=== PATIENT | male | born 1975 | race Caucasian/White ===

== ENCOUNTER 2018-03-19 20:35 | Emergency (ER) | payer BC, SELFPAY ==
[2018-03-19 20:37] VITALS: BP 143/98; PULSE 80; RESP 16; TEMP 36.5; O2SAT 97; BMI 35.2
--- NOTE | 2018-03-19 22:06 | ED.DCSUM_ITS ---
- ER Visit Summary Date of Service: 03/19/18 Chief Complaint: Left small finger pain History of Present Illness: The patient is a 42 M who sees Arash Garcia. He is right-hand dominant. He attempted to block a football and has an obvious dislocation of his left finger PIP joint. He reports his sharp pain is 4 out of 10 severity. Is worsened by movement relieved by rest. Denies any paresthesias distally. No other injuries. Physical Examination: Vitals: Stable. Afebrile. General: Well-nourished and well-developed. Head: Normocephalic atraumatic. Neck: Supple, no lymphadenopathy. No JVD. Nontender. Cardiovascular: Regular rate and rhythm. No murmurs. Respiratory: No respiratory distress. Clear to auscultation bilaterally. Abdominal: Soft, nontender, nondistended, normal bowel sounds. No guarding, rebound, or peritoneal signs. Back: Nontender. Extremities: Left small finger shows an obvious dislocation of the PIP joint. He is neurovascular intact distally. Skin: Normal color, no rash. Neurologic: Alert and oriented ?3. Cranial nerves II through XII are intact. Normal strength and sensation. Psych: Normal affect. Test Results: X-ray shows a dislocation without fracture. Emergency Department Course and Treatment: Patient refused digital block or pain medications. He had this reduced and tolerated it well. He is placed in aluminum foam splint. Treatment Plan: Patient be discharged instructions follow Dr. Sullivan in 1 week for another exam. Disposition: To home in improved and stable condition. Impression: 1. Left small finger PIP joint dislocation. 2. Reduction of left small finger PIP dislocation. This note was generated with [employer] dictation software. It may contain incorrect words, spelling, and punctuation that were not noted in review of the chart prior to signing ED Disposition - Plan for ED Patient: Disposition: Home or Assisted Living Chief Complaint: Upper Extremity Injury Instructions: ED Dislocation Finger Redu Referrals: Chidi Sullivan DO [STAFF PHYSICIAN] - 1 Week
[2018-03-19 22:23] VITALS: BP 143/98; RESP 15
== END 2018-03-19 22:24 | disposition home or self-care (01) ==
PROVIDERS: Emergency Provider Emergency Medicine; Family Provider Nurse Practitioner Family; PCP Nurse Practitioner Family
DX: S63.287A Dislocation of proximal interphalangeal joint of left little finger, initial encounter (principal); W21.01XA Struck by football, initial encounter; Y93.61 Activity, american tackle football; Y92.89 Other specified places as the place of occurrence of the external cause; Y99.8 Other external cause status
CPT/HCPCS: 26770; 73140; 99283

== ENCOUNTER → 2020-09-12 08:19 | Outpatient (CLI) | payer BC, SELFPAY ==
[2020-09-12 09:33] LABS: Hematocrit 44.4 % (40-54); Mean Corp Hgb Conc 31.5 g/dL (32-36); Mean Corpuscular Hgb 25.4 pg (27.0-32.0); Mean Corpuscular Volume 80.6 fL (80-94); Mean Platelet Vol. 9.9 fl (6.2-12.0); Platelet Count 230 K/mm3 (150-450); RBC Distribution Width CV 14.4 % (11.6-14.6); RBC Distribution Width SD 41.8 fl (35.1-43.9); Red Blood Count 5.51 M/mm3 (4.6-6.2); White Blood Count 5.3 K/mm3 (4.4-11.0)
[2020-09-12 09:47] LABS: Hemoglobin A1c 5.7 % (3.8-5.6)
[2020-09-12 09:59] LABS: ALB/GLOB Ratio 1.1 RATIO (0.9-2.4); AST(SGOT) 19 U/L (15-37); Alanine Aminotransfer ALT/SGPT 24 U/L (16-61); Albumin, Serum 3.8 g/dL (3.2-5.0); Alkaline Phosphatase 85 U/L (45-117); Anion Gap 6 (5-15); BUN 27 mg/dL (7-18); BUN/Creat Ratio 18.2 RATIO (10-20); Calcium,Total 8.6 mg/dL (8.5-10.1); Chloride 111 mmol/L (98-107); Cholesterol 166 mg/dL (200); Creatinine, Serum 1.48 mg/dL (0.70-1.30); EST Glomerular Filtration Rate 54 mL/min (>60); Est Glom Filt Rate - Afr Amer 65 mL/min (>60); Globulin 3.6 g/dL (2.2-4.2); Glucose 68 mg/dL (74-106); High Density Lipoprotein 31 mg/dL; Potassium 4.6 mmol/L (3.5-5.1); Protein, Total 7.4 g/dL (6.4-8.2); Sodium Level 141 mmol/L (136-145); Triglycerides 140 mg/dL; Uric Acid 9.3 mg/dL (3.5-7.2); Very Low Density Lipoprotein 28 mg/dL (5-40)
== END ==
PROVIDERS: PCP Nurse Practitioner Family; Referring Provider Nurse Practitioner Family; Visit Provider Nurse Practitioner Family
DX: E11.9 Type 2 diabetes mellitus without complications (principal); M10.9 Gout, unspecified
CPT/HCPCS: 36415; 80053; 80061; 83036; 84550; 85027

== ENCOUNTER → 2021-04-02 09:51 | Outpatient (CLI) | payer BC, SELFPAY ==
[2021-04-02 10:34] LABS: Hematocrit 41.8 % (40-54); Hemoglobin 13.4 g/dL (13.0-16.5); Mean Corp Hgb Conc 32.1 g/dL (32-36); Mean Corpuscular Hgb 25.7 pg (27.0-32.0); Mean Corpuscular Volume 80.2 fL (80-94); Mean Platelet Vol. 9.4 fl (6.2-12.0); Platelet Count 224 K/mm3 (150-450); RBC Distribution Width CV 14.4 % (11.6-14.6); RBC Distribution Width SD 41.1 fl (35.1-43.9); Red Blood Count 5.21 M/mm3 (4.6-6.2); White Blood Count 5.6 K/mm3 (4.4-11.0)
[2021-04-02 11:12] LABS: ALB/GLOB Ratio 0.8 RATIO (0.9-2.4); AST(SGOT) 14 U/L (15-37); Alanine Aminotransfer ALT/SGPT 22 U/L (16-61); Albumin, Serum 3.2 g/dL (3.2-5.0); Alkaline Phosphatase 76 U/L (45-117); Anion Gap 6 (5-15); BUN 24 mg/dL (7-18); BUN/Creat Ratio 18.9 RATIO (10-20); Calcium,Total 8.4 mg/dL (8.5-10.1); Chloride 113 mmol/L (98-107); Cholesterol 135 mg/dL (200); Creatinine, Serum 1.27 mg/dL (0.70-1.30); EST Glomerular Filtration Rate 64 mL/min (>60); Est Glom Filt Rate - Afr Amer 78 mL/min (>60); Globulin 3.9 g/dL (2.2-4.2); Glucose 95 mg/dL (74-106); High Density Lipoprotein 31 mg/dL; Potassium 4.4 mmol/L (3.5-5.1); Protein, Total 7.1 g/dL (6.4-8.2); Sodium Level 140 mmol/L (136-145); Triglycerides 155 mg/dL; Uric Acid 4.6 mg/dL (3.5-7.2); Very Low Density Lipoprotein 31 mg/dL (5-40)
[2021-04-02 11:24] LABS: Hemoglobin A1c 5.9 % (3.8-5.6)
== END ==
PROVIDERS: PCP Nurse Practitioner Family; Referring Provider Nurse Practitioner Family; Visit Provider Nurse Practitioner Family
DX: E78.6 Lipoprotein deficiency (principal); M10.9 Gout, unspecified; I12.9 Hypertensive chronic kidney disease with stage 1 through stage 4 chronic kidney disease, or unspecified chronic kidney disease; N18.30 Chronic kidney disease, stage 3 unspecified; E78.5 Hyperlipidemia, unspecified; E11.9 Type 2 diabetes mellitus without complications
CPT/HCPCS: 36415; 80053; 80061; 83036; 84550; 85027

== ENCOUNTER → 2022-11-17 | Outpatient (CLI) | payer MEDICAID, SELFPAY | END | disposition home or self-care (01) | LOC: SL 20:13 | PROVIDERS: PCP Nurse Practitioner Family; Visit Provider Nurse Practitioner Family | DX: G47.10 Hypersomnia, unspecified (principal) | CPT/HCPCS: 95810 ==

== ENCOUNTER → 2022-12-11 | Outpatient (CLI) | payer MEDICAID, SELFPAY | END | disposition home or self-care (01) | LOC: SL 21:00 | PROVIDERS: PCP Nurse Practitioner Family; Referring Provider Nurse Practitioner Family; Visit Provider Nurse Practitioner Family | DX: G47.33 Obstructive sleep apnea (adult) (pediatric) (principal) | CPT/HCPCS: 95811 ==

== ENCOUNTER → 2023-01-16 | Outpatient (CLI) | payer MEDICAID, SELFPAY ==
[2023-01-16 08:51] LABS: Hematocrit 42.3 % (40-54); Mean Corp Hgb Conc 30.7 g/dL (32-36); Mean Corpuscular Hgb 24.4 pg (27.0-32.0); Mean Corpuscular Volume 79.5 fL (80-94); Mean Platelet Vol. 9.3 fl (6.2-12.0); Platelet Count 236 K/mm3 (150-450); RBC Distribution Width CV 15.1 % (11.6-14.6); RBC Distribution Width SD 43.2 fl (35.1-43.9); Red Blood Count 5.32 M/mm3 (4.6-6.2); White Blood Count 6.9 K/mm3 (4.4-11.0)
[2023-01-16 09:28] LABS: Cholesterol 123 mg/dL (200); High Density Lipoprotein 31 mg/dL; Iron 34 ug/dL (65-175); T4 Free Direct 0.93 ng/dL (0.76-1.46); Thyroid Stim Hormone (TSH) 1.26 uIU/mL (0.358-3.74); Triglycerides 125 mg/dL; Very Low Density Lipoprotein 25 mg/dL (5-40)
[2023-01-16 09:44] LABS: Vitamin D,25 Hydroxy 30.9 ng/mL
== END | disposition home or self-care (01) ==
PROVIDERS: PCP Nurse Practitioner Family; Referring Provider Nurse Practitioner Family; Visit Provider Nurse Practitioner Family
DX: I12.9 Hypertensive chronic kidney disease with stage 1 through stage 4 chronic kidney disease, or unspecified chronic kidney disease (principal); E11.22 Type 2 diabetes mellitus with diabetic chronic kidney disease; N18.30 Chronic kidney disease, stage 3 unspecified; E78.5 Hyperlipidemia, unspecified; D64.9 Anemia, unspecified; R68.89 Other general symptoms and signs; F41.1 Generalized anxiety disorder
CPT/HCPCS: 36415; 80061; 82043; 82306; 83540; 84439; 84443; 85027

== ENCOUNTER → 2023-11-18 | Outpatient (CLI) | payer SELFPAY ==
--- NOTE | 2023-11-18 15:13 | US_ITS ---
STUDY: THYROID ULTRASOUND REASON FOR EXAM: Male, 48 years old. Hypercalcemia, possible hyperparathyroidism TECHNIQUE: Ultrasound evaluation of the thyroid was performed with real-time and static eagle-scale imaging. COMPARISON: None. FINDINGS: RIGHT LOBE: The right lobe of the thyroid gland measures 4.6 x 1.7 x 1.7 cm. There is a heterogeneous echotexture. Multiple separate solid hypoechoic nodules are noted largest measures 0.9 x 0.6 x 0.4 cm. TI-RADS points: 4. TI-RADS category: TR4. Nodules are moderately suspicious but no FNA or follow-up is necessary given the small size of the nodules. LEFT LOBE: The left lobe of the thyroid gland measures 4.5 x 1.7 x 1.3 cm. There is a heterogeneous echotexture. Multiple complex solid and cystic nodules are noted the largest measures 1.4 x 1.2 x 1.0 cm. Nodules are mixed cystic and solid, hypoechoic, [id number], smoothly marginated and contains no echogenic foci. TI-RADS points: 3. TI-RADS category: TR3. Nodules are mildly suspicious but no FNA or follow-up is necessary given the small size of the nodules. ISTHMUS: The isthmus measures 2.8 mm. There is a solid/cystic 0.8 cm nodule. This nodule is mixed cystic and solid, hypoechoic, [id number], smoothly marginated and contains no echogenic foci. TI-RADS points: 3. TI-RADS category: TR3. This nodule is mildly suspicious but no FNA or follow-up is necessary given the small size of this nodule. The regional lymph nodes are normal. No sonographic evidence of enlarged parathyroid gland US/Thyroid IMPRESSION: Normal-sized heterogeneous thyroid gland with bilateral nodules, both solid and complex. Categorization and follow-up as described above. Electronically Signed: Jair Suresh MD at 8:36 EDT ,
--- NOTE | 2023-11-18 15:13 | US_ITS ---
INDICATION: CK WORSENING EXAMINATION: Ultrasound US Kidney(s) complete (eg, kidneys and bladder) TECHNIQUE: Ng scale and color doppler images were obtained of the kidneys. COMPARISON: None. FINDINGS: RIGHT KIDNEY: 9.3 x 4.8 x 4.3 cm. There is no hydronephrosis. No shadowing calculus, focal lesion or perinephric collection is demonstrated. RIGHT renal cortex estimated at 1.2 cm. LEFT KIDNEY: 9.1 x 6.3 x 4.9 cm. There is no hydronephrosis. No shadowing calculus, focal lesion or perinephric collection is demonstrated. [Cortex estimated at 1.1 cm. URINARY BLADDER: Bladder has normal configuration, volume estimated at 365.2 mL. No filling defects. Wall has normal appearance. Bilateral ureteral jets are identified. US/Kidney and Bladder IMPRESSION: 1. Normal sonographic appearance of the kidneys. No solid or cystic masses, shadowing calcifications or evidence of obstructive uropathy. 2. Bladder estimated volume is 365.2 mL. No filling defects noted. Bilateral ureteral jets are present. Electronically Signed: Richy Almazan MD at 21:07 EDT ,
== END | disposition home or self-care (01) ==
LOC: US 15:09
PROVIDERS: PCP Nurse Practitioner Family; Referring Provider Nurse Practitioner Family; Visit Provider Nurse Practitioner Family
DX: N25.81 Secondary hyperparathyroidism of renal origin (principal); N18.30 Chronic kidney disease, stage 3 unspecified
CPT/HCPCS: 76536; 76770

== ENCOUNTER → 2024-05-13 | Outpatient (CLI) | payer MEDICAID, SELFPAY ==
--- NOTE | 2024-05-13 09:05 | RAD_ITS ---
STUDY: X-RAY - RIGHT ELBOW REASON FOR EXAM: Male, 49 years old. PAIN AND SWELLING / EVAL CALCIFICATION IN COMMON ESTENSOR/FLEX MASS TECHNIQUE: 3 views of the right elbow. COMPARISON: None. FINDINGS: Normal visualized humerus, radius and ulna. Normal radiocapitellar and ulnotrochlear articulations. The soft tissue structures are unremarkable. There is no abnormal soft tissue calcification noted. There is no demonstrated fracture. RAD/Elbow min 3 Views IMPRESSION: Normal x-ray examination of the right elbow. No abnormal soft tissue calcification noted. Electronically Signed: Grayson Jolly MD at 15:44 EDT ,
== END | disposition home or self-care (01) ==
LOC: RAD 08:56
PROVIDERS: PCP Nurse Practitioner Family; Referring Provider Nurse Practitioner Family; Visit Provider Nurse Practitioner Family
DX: M25.521 Pain in right elbow (principal)
CPT/HCPCS: 73080

== ENCOUNTER → 2025-05-01 | Outpatient (CLI) | payer MEDICAID, SELFPAY ==
--- OUTSIDE RECORDS SUMMARY | 2025-05-01 10:21 | XMS RPT_ITS | CCD ---
Author Organization [facility] Care Team Providers Care Competitive Intelligence Analyst Name Role Phone [employer] - YOLIS, RICHY Jain Primary Care Phys ician Yanradha LGAOS, Richy Jain Primary Care Provider Rosebudradha LAGOS, Richy Jain Primary Care Provider [employer]GER [employer] - DIRECTOR OF ANESTHESIA SERVICES, RICHY Jain Attending U navailable YAN MANAGER [employer] - DIRECTOR OF ANESTHESIA SERVICES, RICHY Jain Primary Care U navailable Y[employer] MANAGER [employer] - DIRECTOR OF ANESTHESIA SERVICES, RICHY Jain Attending U navailable YAN MANAGER [employer] - DIRECTOR OF ANESTHESIA SERVICES, RICHY Jain Primary Care U navailable YAN MANAGER [employer] - DIRECTOR OF ANESTHESIA SERVICES, RICHY Jain Primary Care U navailable YAN MANAGER [employer] - DIRECTOR OF ANESTHESIA SERVICES, RICHY Jain Attending U navailable Yan YOLIS, Richy Jain Primary Care Provider YAN MANAGER [employer] - DIRECTOR OF ANESTHESIA SERVICES, RICHY Jain Attending U navailable YAN MANAGER [employer] - DIRECTOR OF ANESTHESIA SERVICES, RICHY Jain Primary Care U navailable YAN MANAGER [employer] - DIRECTOR OF ANESTHESIA SERVICES, RICHY Jain Attending U navailable YAN MANAGER [employer] - DIRECTOR OF ANESTHESIA SERVICES, RICHY Jain Primary Care U navailable YAN MANAGER [employer] - DIRECTOR OF ANESTHESIA SERVICES, RICHY Jain Attending U navailable YAN MANAGER [employer] - DIRECTOR OF ANESTHESIA SERVICES, RICHY Jain Primary Care U navailable YAN MANAGER [employer] - DIRECTOR OF ANESTHESIA SERVICES, RICHY Jain Attending U navailable YAN MANAGER [employer] - DIRECTOR OF ANESTHESIA SERVICES, RICHY Jain Primary Care U navailable Y[employer] MANAGER [employer] - DIRECTOR OF ANESTHESIA SERVICES, RICHY Jain Attending U navailable YAN MANAGER [employer] - DIRECTOR OF ANESTHESIA SERVICES, RICHY Jain Primary Care U navailable YAN, RICHY Jain Primary Care Unavailable ASHLYN LASSITER Attending Unavailable Yan BRANDS EDITOR, Richy Charles Referring Unav ailable Rosebud BRANDS EDITOR, Richy Charles Attending Unav ailable Rosebud BRANDS EDITOR, Richy Charles Primary Care Unav ailable Yan BRANDS EDITOR, Richy Charles Attending Unav ailable Yan BRANDS EDITOR, Richy Charles Primary Care Unav ailable Allergies Allergy Classification Reported Allergen(s) Allergy Type Date of Onset Reaction(s) Facility (15 sources) Ibuprofen; Translations: [ibuprofen] Drug Allergy 01-05-2022 Intolerance [facility] [place] Medications Current Medications Medication Drug Class(es) Dates Sig (Normalized) Sig (Original) [id number] 200 actuat albuterol 0.09 mg/actuat metered dose inhaler (10 sources) beta2-Adrenergic Agonist Start: 09-02-2017 albuterol (PROVENTIL) 5 mg/mL nebu Indications: Acute bronchitis, unspecified organism , Wheezing Inhale 0.5 mL as instructed one time only for 1 dose. 1 DOSE NOW - BACK OFFICE. PLACE 0.5 ML PER DROPPER AND 2.5 ML OF NORMAL SALINE INTO RESERVOIR. 1 mL 09/02/2017 Active Start: 09-02-2017 End: 01-05-2022 take 2 puff(s) by inhalation every four hours as needed albuterol HFA (PROVENTIL HFA, VENTOLIN HFA) 90 mcg/actuation inhaler Indications: Acute bronchitis, unspecified organism , Wheezing Inhale 2 Puffs as instructed every 4 hours as needed. 1 Inhaler 01/05/2022 Active Comment on above: Inhale 0.5 mL as ins tructed one time only for 1 dose. 1 DOSE NOW - BACK OFFICE. PLACE 0.5 ML PER DROPPER AND 2.5 ML OF NORMAL SALINE INTO RESERVOIR. Inhale 2 Puffs as in structed every 4 hours as needed. allopurinol 100 mg oral tablet (14 sources) Xanthine Oxidase Inhibitor Start: 05-05-2024 allopurinol 100 mg oral tablet Dose : 100 mg = 1 tab(s), Oral, qDay, # 90 tab(s), 1 Refill(s), Pharmacy: [facility], Gout, 172, cm, 05/05/24 8:52:00 EDT, Height, kg, 05/05/24 8:52:00 EDT, Dosing Weight Start Date: 05/05/24 Status: Ordered Start: 11-05-2023 allopurinol 10 0 mg oral tablet Dose : 100 mg = 1 tab(s), Oral, qDay, # 90 tab(s), 1 Refill(s), Pharmacy: [facility], Gout, 172, cm, 11/05/23 9:05:00 EDT, Height, kg, 11/05/23 9:05:00 EDT, Dosing Weight Start Date: 11/05/23 Status: Ordered Start: 04-30-2023 End: 10-27-2023 allopurinol 300 mg oral tabl et Dose : 300 mg = 1 tab(s), Oral, qDay, # 90 tab(s), 1 Refill(s), Pharmacy: [facility], Gout, 172, cm, 04/30/23 9:23:00 EDT, Height, kg, 04/30/23 9:23:00 EDT, Dosing Weight Start Date: 04/30/23 Stop Date: 10/27/23 Status: Ordered Start: 10-30-2022 End: 04-28-2023 allopurinol 300 mg oral tabl et Dose : 300 mg = 1 tab(s), Oral, qDay, # 90 tab(s), 1 Refill(s), Pharmacy: [facility], Gout, 172, cm, 10/30/22 10:44:00 EDT, Height, kg, 10/30/22 10:44:00 EDT, Dosing Weight Start Date: 10/30/22 Stop Date: 04/28/23 Status: Ordered Start: 01-08-2015 End: 10-21-2022 allopurinol 300 mg oral tabl et Dose : 300 mg = 1 tab(s), Oral, qDay, # 90 tab(s), 1 Refill(s), Pharmacy: [facility], Gout, 172, cm, 04/24/22 14:54:00 EDT, Height, kg, 04/24/22 14:54:00 EDT, Dosing Weight Start Date: 04/24/22 Stop Date: 10/21/22 Status: Ordered ALLOPURINOL ORAL Take by mouth. Active ALLOPURINOL ORAL Take by mouth. 0 Active Comment on above: Take 1 tablet by [facility] once daily. Take by mouth. amoxicillin 875 mg / clavulanate 125 mg oral tablet (3 sources) Penicillin-class Antibacterial Start: 5 take 875 mg by mouth every twelve hours Amoxicillin-Pot Clavulanate Active 875 MG PO Q12H December 21, 2014 12:00am ARIPiprazole 2 mg oral tablet (7 sources) Atypical Antipsychotic Start: Abilify 2 mg oral tablet Dose : 2 mg = 1 tab(s), Oral, qDay, # 90 tab(s), 1 Refill(s), Pharmacy: [facility], RENATO (generalized anxiety disorder), 172, cm, 05/05/24 8:52:00 EDT, Height, kg, 05/05/24 8:52:00 EDT, Dosing Weight Start Date: 05/05/24 Status: Ordered Start: 11-05-2023 Abilify 2 mg o ral tablet Dose : 2 mg = 1 tab(s), Oral, qDay, # 90 tab(s), 1 Refill(s), Pharmacy: [facility], RENATO (generalized anxiety disorder), 172, cm, 11/05/23 9:05:00 EDT, Height, kg, 11/05/23 9:05:00 EDT, Dosing Weight Start Date: 11/05/23 Status: Ordered Start: 03-27-2023 End: 07-29-2023 Abilify 2 mg oral tablet Dos e : 2 mg = 1 tab(s), Oral, qDay, # 90 tab(s), 1 Refill(s), Pharmacy: [facility], RENATO (generalized anxiety disorder), 172, cm, 04/30/23 9:23:00 EDT, Height, kg, 04/30/23 9:23:00 EDT, Dosing Weight Start Date: 04/30/23 Stop Date: 07/29/23 Status: Ordered Start: 09-01-2022 End: 10-31-2022 Abilify 5 mg oral tablet Dos e : 5 mg = 1 tab(s), Oral, qDay, # 30 tab(s), 1 Refill(s), Pharmacy: [facility], 172, cm, 09/01/22 10:13:00 EST, Height Start Date: 09/01/22 Stop Date: 10/31/22 Status: Ordered benzonatate 100 mg oral capsule (4 sources) Non-narcotic Antitussive Start: 07-09-2022 take 1 capsule by mouth three times daily as needed for cough benzonatate (TESSALON PERLE) 100 mg capsule Indications: Lower resp. tract infection Take 1 capsule by mouth three times a day as needed for cough for up to 12 doses. 12 capsule 11/13/2024 Active Start: 01-05-2022 End: 01-15-2022 take 2 capsules by mouth three times daily as needed for cough benzonatate (TESSALON PERLE) 100 mg capsule Indications: Acute bronchitis, unspecified organism Take 2 capsules by mouth three times daily as needed for cough for up to 10 days. 60 capsule 0 01/05/2022 01/15/2022 Active Comment on above: Take 2 capsules by m outh three times daily as needed for cough for up to 10 days. Take 1 capsule by mo uth three times daily as needed for cough. cholecalciferol 1.25 mg oral capsule (6 sources) Vitamin D Start: 11-03-2024 take 1 capsule by mouth every month cholecalciferol, Vitamin D3, (VITAMIN D3) 1,250 mcg (50,000 unit) cap capsule Take 50,000 Units by mouth once every month. 11/03/2024 Active Start: 05-05-2024 End: 11-01-2024 cholecalciferol 1250 mcg (50 ,000 intl units) oral capsule Dose : 50,000 International_Unit = 1 cap(s), Oral, every other week, # 7 cap(s), 1 Refill(s), Pharmacy: [facility], Vitamin D deficiency, 172, cm, 05/05/24 8:52:00 EDT, Height, kg, 05/05/24 8:52:00 EDT, Dosing Weight Start Date: 05/05/24 Stop Date: 11/01/24 Status: Ordered Start: 11-05-2023 End: 05-03-2024 cholecalciferol 1250 mcg (50 ,000 intl units) oral capsule Dose : 50,000 International_Unit = 1 cap(s), Oral, every other week, # 7 cap(s), 1 Refill(s), Pharmacy: [facility], Vitamin D deficiency, 172, cm, 11/05/23 9:05:00 EDT, Height, kg, 11/05/23 9:05:00 EDT, Dosing Weight Start Date: 11/05/23 Stop Date: 05/03/24 Status: Ordered Start: 04-30-2023 End: 10-27-2023 cholecalciferol 1250 mcg (50 ,000 intl units) oral capsule Dose : 50,000 International_Unit = 1 cap(s), Oral, qmonth, # 4 cap(s), 1 Refill(s), Pharmacy: [facility], Vitamin D deficiency, 172, cm, 04/30/23 9:23:00 EDT, Height, kg, 04/30/23 9:23:00 EDT, Dosing Weight Start Date: 04/30/23 Stop Date: 10/27/23 Status: Ordered Start: 02-02-2023 End: 10-27-2023 cholecalciferol 1250 mcg (50 ,000 intl units) oral capsule Dose : 50,000 International_Unit = 1 cap(s), Oral, qmonth, # 4 cap(s), 1 Refill(s), Pharmacy: [facility], Vitamin D deficiency, 172, cm, 04/30/23 9:23:00 EDT, Height, kg, 04/30/23 9:23:00 EDT, Dosing Weight Start Date: 04/30/23 Stop Date: 10/27/23 Status: Ordered citalopram 40 mg oral tablet (3 sources) Serotonin Reuptake Inhibitor Start: 04-04-2021 End: 06-30-2022 citalopram 40 mg oral tablet Dose : 40 mg = 1 tab(s), Oral, qDay, # 90 tab(s), 2 Refill(s), Pharmacy: [facility], RENATO, 172, cm, 10/03/21 9:02:00 EDT, Height, kg, 10/03/21 9:02:00 EDT, Dosing Weight Start Date: 10/03/21 Stop Date: 06/30/22 Status: Ordered doxycycline monohydrate 100 mg oral capsule (1 source) Tetracycline-cla ss Drug Start: 11-13-2024 End: 11-18-2024 take 1 capsule by mouth twice daily doxycycline monohydrate (MONODOX) 100 mg capsule Indications: Lower resp. tract infection Take 1 capsule by mouth two times a day for 5 days. 10 capsule 11/13/2024 11/18/2024 Active 0.4 ml enoxaparin sodium 100 mg/ml prefilled syringe (3 sources) Low Molecular Weight Heparin Start: 10-22-2014 Enoxaparin Active 40 MG SC DAILY@0600 14 October 22, 2014 12:00am escitalopram 20 mg oral tablet (7 sources) Serotonin Reuptake Inhibitor Start: 08-25-2024 take 1 tablet by mouth once daily LEXAPRO 20 mg tablet Take 20 mg by mouth once daily. 08/25/2024 Active Start: 05-05-2024 Lexapro 20 mg oral tablet Dose : 20 mg = 1 tab(s), Oral, qDay, # 90 tab(s), 0 Refill(s), Pharmacy: [facility], RENATO (generalized anxiety disorder), 172, cm, 05/05/24 8:52:00 EDT, Height, kg, 05/05/24 8:52:00 EDT, Dosing Weight Start Date: 05/05/24 Status: Ordered Start: 02-23-2024 Lexapro 20 mg oral tablet Dose : 20 mg = 1 tab(s), Oral, qDay, # 90 tab(s), 0 Refill(s), Pharmacy: [facility], RENATO (generalized anxiety disorder), 172, cm, 12/03/23 8:52:00 EDT, Height, kg, 12/03/23 8:52:00 EDT, Dosing Weight Start Date: 02/23/24 Status: Ordered Start: 08-28-2023 End: 11-26-2023 Lexapro 20 mg oral tablet Do se : 20 mg = 1 tab(s), Oral, qDay, # 90 tab(s), 0 Refill(s), Pharmacy: [facility], RENATO (generalized anxiety disorder), 172, cm, 04/30/23 9:23:00 EDT, Height, kg, 04/30/23 9:23:00 EDT, Dosing Weight Start Date: 08/28/23 Stop Date: 11/26/23 Status: Ordered Start: 03-27-2023 End: 07-29-2023 Lexapro 20 mg oral tablet Do se : 20 mg = 1 tab(s), Oral, qDay, # 30 tab(s), 2 Refill(s), Pharmacy: [facility], RENATO (generalized anxiety disorder), 172, cm, 04/30/23 9:23:00 EDT, Height, kg, 04/30/23 9:23:00 EDT, Dosing Weight Start Date: 04/30/23 Stop Date: 07/29/23 Status: Ordered Start: 09-01-2022 End: 10-31-2022 Lexapro 20 mg oral tablet Do se : 20 mg = 1 tab(s), Oral, qDay, D/c Wellbutrin, # 30 tab(s), 1 Refill(s), Pharmacy: [facility], RENATO (generalized anxiety disorder), 172, cm, 09/01/22 10:13:00 EST, Height, kg, 09/01/22 10:13:00 EST, Dosing Weight Start Date: 09/01/22 Stop Date: 10/31/22 Status: Ordered ferrous sulfate 325 mg delay ed release oral tablet (4 sources) Start: 11-05-2023 End: 05-03-2024 ferrous sulfate 325 mg (65 m g elemental iron) oral delayed release tablet Dose : 325 mg = 1 tab(s), Oral, qDay, # 90 tab(s), 1 Refill(s), Pharmacy: [facility], Iron deficiency anemia, 172, cm, 11/05/23 9:05:00 EDT, Height, kg, 11/05/23 9:05:00 EDT, Dosing Weight Start Date: 11/05/23 Stop Date: 05/03/24 Status: Ordered Start: 02-02-2023 End: 10-27-2023 ferrous sulfate 325 mg (65 m g elemental iron) oral delayed release tablet Dose : 325 mg = 1 tab(s), Oral, qDay, # 90 tab(s), 1 Refill(s), Pharmacy: [facility], Iron deficiency anemia, 172, cm, 04/30/23 9:23:00 EDT, Height, kg, 04/30/23 9:23:00 EDT, Dosing Weight Start Date: 04/30/23 Stop Date: 10/27/23 Status: Ordered glimepiride 2 mg oral tablet (12 sources) Sulfonylurea Start: 05-05-2024 End: 11-01-2024 glimepiride 2 mg oral tablet Dose : 2 mg = 1 tab(s), Oral, qDay, # 90 tab(s), 1 Refill(s), Pharmacy: [facility], DM type 2, goal HbA1c Start Date: 05/05/24 Stop Date: 11/01/24 Status: Ordered Start: 11-05-2023 End: 05-03-2024 glimepiride 2 mg oral tablet Dose : 2 mg = 1 tab(s), Oral, qDay, # 90 tab(s), 1 Refill(s), Pharmacy: [facility], DM type 2, goal HbA1c Start Date: 11/05/23 Stop Date: 05/03/24 Status: Ordered Start: 04-04-2021 End: 10-27-2023 glimepiride 2 mg oral tablet Dose : 2 mg = 1 tab(s), Oral, qDay, # 90 tab(s), 1 Refill(s), Pharmacy: [facility], DM type 2, goal HbA1c Start Date: 04/30/23 Stop Date: 10/27/23 Status: Ordered Comment on above: Take 2 mg by mouth o nce daily. iron carbonyl 45 mg oral tablet (3 sources) Start: 5 take 1 capsule by mouth once daily at mealtime Iron, Carbonyl (Feosol) 45 MG capsule Active 45 MG PO DAILY WITH MEALS October 22, 2014 12:00am ketotifen 0.25 mg/ml ophthalmic solution (1 source) Histamine-1 Receptor Inhibitor Start: End: 4 Zaditor 0.025% ophthalmic solution Dose = 1 drop(s), Eyes, both, q12h, PRN as needed for occular itching, X 30 day(s), # 7.5 mL, 1 Refill(s), Pharmacy: [facility], Seasonal allergies, 172, cm, 05/05/24 8:52:00 EDT, Height, kg, 05/05/24 8:52:00 EDT, Dosing Weight Start Date: 05/05/24 Stop Date: 07/04/24 Status: Ordered metFORMIN hydrochloride 500 mg oral tablet (12 sources) Biguanide Start: MetFORMIN (Eqv-Glucophage XR) 500 mg oral tablet, EXTENDED RELEASE Dose : 500 mg = 1 tab(s), Oral, qDay, # 90 tab(s), 1 Refill(s), Pharmacy: [facility], 172, cm, 05/05/24 8:52:00 EDT, Height, kg, 05/05/24 8:52:00 EDT, Dosing Weight Start Date: 05/05/24 Status: Ordered Start: 11-05-2023 MetFORMIN (Eqv -Glucophage XR) 500 mg oral tablet, EXTENDED RELEASE Dose : 500 mg = 1 tab(s), Oral, qDay, # 90 tab(s), 1 Refill(s), Pharmacy: [facility], 172, cm, 11/05/23 9:05:00 EDT, Height, kg, 11/05/23 9:05:00 EDT, Dosing Weight Start Date: 11/05/23 Status: Ordered Start: 04-30-2023 MetFORMIN (Eqv -Glucophage XR) 500 mg oral tablet, EXTENDED RELEASE Dose : 500 mg = 1 tab(s), Oral, qDay, # 90 tab(s), 1 Refill(s), Pharmacy: [facility], 172, cm, 04/30/23 9:23:00 EDT, Height, kg, 04/30/23 9:23:00 EDT, Dosing Weight Start Date: 04/30/23 Status: Ordered Start: 10-30-2022 MetFORMIN (Eqv -Glucophage XR) 500 mg oral tablet, EXTENDED RELEASE Dose : 500 mg = 1 tab(s), Oral, qDay, # 90 tab(s), 1 Refill(s), Pharmacy: [facility], 172, cm, 10/30/22 10:44:00 EDT, Height, kg, 04/20/23 10:44:00 EDT, Dosing Weight Start Date: 10/30/22 Status: Ordered Start: 04-24-2022 MetFORMIN (Eqv -Glucophage XR) 500 mg oral tablet, EXTENDED RELEASE Dose : 500 mg = 1 tab(s), Oral, qDay, # 90 tab(s), 1 Refill(s), Pharmacy: [facility], 172, cm, 04/24/22 14:54:00 EDT, Height, kg, 04/24/22 14:54:00 EDT, Dosing Weight Start Date: 04/24/22 Status: Ordered Start: 04-24-2022 take 1 tablet by brittany th once daily metFORMIN ER (GLUCOPHAGE XR) 500 mg 24 hr tablet Take 500 mg by mouth once daily. 04/24/2022 Active Start: 04-04-2021 End: 12-30-2021 MetFORMIN (Eqv-Glucophage XR ) 500 mg oral tablet, EXTENDED RELEASE Dose : 500 mg = 1 tab(s), Oral, qDay, # 30 tab(s), 6 Refill(s), Pharmacy: [facility], 172, cm, 10/03/21 9:02:00 EDT, Height, kg, 10/03/21 9:02:00 EDT, Dosing Weight Start Date: 10/03/21 Status: Ordered Comment on above: Take 500 mg by mouth once daily. methylPREDNISolone (2 sources) Corticosteroid Start: 07-09-2022 End: 07-15-2022 methylPREDNISolone (MEDROL, FELICIA,) 4 mg Dose-Pack Follow dosing instructions, take with food. 21 tablet 0 07/09/2022 07/15/2022 Active Start: 09-02-2017 End: 01-05-2022 methylPREDNISolone (MEDROL D OSE-PACK) 4 mg Dose-Pack Indications: Acute bronchitis, unspecified organism As Instructed per package 1 Package 0 09/02/2017 01/05/2022 Discontinued Comment on above: As Instructed per lena boo Follow dosing instru ctions, take with food. oxyCODONE hydrochloride 5 mg oral tablet (3 sources) Opioid Agonist Start: 10-23-19 15 take 5 mg by mouth every four hours as needed Oxycodone Active 5 MG PO EVERY 4 HOURS NEEDED October 22, 2014 12:00am pantoprazole 40 mg delayed release oral tablet (3 sources) Proton Pump Inhibitor Start: 10-23-19 take 40 mg by mouth once daily Pantoprazole Active 40 MG PO DAILY October 22, 2014 12:00am predniSONE 20 mg oral tablet (1 source) Start: 01-06-20 End: 01-10-20 take 2 tablets by mouth once daily at mealtime predniSONE (DELTASONE) 20 mg tablet Indications: Viral bronchitis Take 2 tablets by mouth once daily for 4 days. Take daily with food. 8 tablet 0 01/05/2022 01/09/2022 Active Comment on above: Take 2 tablets by [facility] once daily for 4 days. Take daily with food. Vitamin C 500 mg oral tablet (4 sources) Start: 04-30-20 Vitamin C 500 mg oral tablet Dose : 500 mg = 1 tab(s), Oral, qDay, # 90 tab(s), 1 Refill(s), Pharmacy: [facility], Iron deficiency anemia, 172, cm, 04/30/23 9:23:00 EDT, Height, kg, 04/30/23 9:23:00 EDT, Dosing Weight Start Date: 04/30/23 Status: Ordered Start: 02-02-2023 End: 03-04-2023 Vitamin C 500 mg oral tablet Dose : 500 mg = 1 tab(s), Oral, qDay, # 90 tab(s), 1 Refill(s), Pharmacy: [facility], Iron deficiency anemia, 172, cm, 02/02/23 10:19:00 EDT, Height, kg, 02/02/23 10:19:00 EDT, Dosing Weight Start Date: 02/02/23 Stop Date: 03/04/23 Status: Ordered Completed/Discontinued Medications Medication Drug Class(es) Dates Sig (Normalized) Sig (Original) 24 hr buPROPion hydrochloride 300 mg extended release oral tablet (3 sources) Aminoketone Start: 04-24-2022 End: 11-13-2024 take 1 tablet by mouth once daily buPROPion XL (WELLBUTRIN XL) 300 mg 24 hr tablet Take 300 mg by mouth once daily. 04/24/2022 11/13/2024 Discontinued Comment on above: Take 300 mg by mouth once daily. colchicine 0.6 mg oral tablet (15 sources) Start: 11-05-2023 End: 05-03-2024 colchicine 0.6 mg oral tablet Dose : 0.6 mg = 1 tab(s), Oral, BID, # 180 tab(s), 1 Refill(s), Pharmacy: [facility], 172, cm, 11/05/23 9:05:00 EDT, Height, kg, 11/05/23 9:05:00 EDT, Dosing Weight Start Date: 11/05/23 Stop Date: 05/03/24 Status: Ordered Start: 10-22-2014 End: 04-28-2023 colchicine 0.6 mg tablet Sergei e 0.6 mg by mouth. 11/12/2020 01/25/2023 take 1 tablet by brittany th twice daily colchicine 0.6 mg tablet Take 0.6 mg by mouth two times a day. Active Comment on above: Take 0.6 mg by mouth . traMADol hydrochloride 50 mg oral tablet (3 sources) Opioid Agonist Start: 5 End: 5 take 50 mg by mouth every four hours as needed Tramadol Discontinued 50 MG PO EVERY 4 HOURS NEEDED October 21, 2014 12:00am October 22, 2014 10:18am Problems Active Problems Problem Classification Problem Date Documented Date Episodic/Chronic Acute bronchitis (3 sources) Viral bronchitis; Translations: [Acute bronchitis due to other specified organisms] Episodic Anxiety disorders (9 sources) Generalized anxiety disorder 04-04-2021 Chronic Asthma (9 sources) Allergic asthma 05-06-2019 Chronic Chronic kidney disease (12 sources) Chronic kidney disease stage 3; Translations: [Chronic kidney disease, unspecified] Onset: 5 09-27-2020 Chronic Chronic kidney disease (5 sources) Chronic kidney disease; Translations: [Chronic kidney disease, stage 3 unspecified] Onset: 3 Deficiency and other anemia (9 sources) Anemia 04-04-2021 Episodic Deficiency and other anemia (3 sources) Iron deficiency anemia due to dietary causes; Translations: [Other iron deficiency anemias] 10-22-2014 Episodic Deficiency and other anemia (3 sources) Iron deficiency anemia 02-02-2023 Episodic Diabetes mellitus without complication (19 sources) Type 2 diabetes mellitus; Translations: [Diabetes mellitus] Onset: 9 05-06-2019 Chronic Disorders of lipid metabolism (19 sources) Hyperlipidemia; Translations: [Hyperlipidemia, unspecified] Onset: 3 07-21-2019 Chronic Esophageal disorders (2 sources) Gastroesophageal reflux disease 12-03-2023 Chronic Essential hypertension (19 sources) Hypertensive disorder; Translations: [Essential hypertension] Onset: 9 07-21-2019 Chronic Gastrointestinal hemorrhage (6 sources) Gastric hemorrhage; Translations: [Gastrointestinal hemorrhage, unspecified] 10-21-2014 Episodic Gout and other crystal arthropathies (20 sources) Gout; Translations: [Gout, unspecified] Onset: 9 05-06-2019 Chronic Immunizations and screening for infectious disease (9 sources) Raised antinuclear antibody 05-06-2019 Episodic Nutritional deficiencies (10 sources) Vitamin D deficiency; Translations: [Vitamin D deficiency, unspecified] Onset: 3 02-02-2023 Chronic Other diseases of kidney and ureters (3 sources) Secondary hyperparathyroidism of renal origin; Translations: [Secondary hyperparathyroidism of renal origin] Onset: 4 Chronic Other diseases of kidney and ureters (1 source) Renal impairment 07-21-2019 Episodic Other endocrine disorders (3 sources) Male hypogonadism 12-29-2022 Chronic Other endocrine disorders (3 sources) Testicular hypofunction; Translations: [Testicular hypofunction] Onset: 3 Chronic Other endocrine disorders (2 sources) Secondary hyperparathyroidism 11-05-2023 Chronic Other lower respiratory disease (1 source) Wheezing; Translations: [Wheezing] Episodic Other lower respiratory disease (2 sources) Cough; Translations: [Acute cough] Episodic Other lower respiratory disease (2 sources) Cough; Translations: [Acute cough] 07-09-2022 Episodic Other lower respiratory disease (1 source) Lower respiratory tract infection; Translations: [Unspecified acute lower respiratory infection] 11-13-2024 Episodic Other lower respiratory disease (1 source) Unspecified acute lower respiratory infection; Translations: [Lower resp. tract infection] Onset: 5 Episodic Other nervous system disorders (5 sources) Intolerant of heat 12-29-2022 Episodic Other non-traumatic joint disorders (9 sources) Multiple joint pain 05-06-2019 Episodic Other non-traumatic joint disorders (1 source) Pain in elbow 05-05-2024 Episodic Other nutritional; endocrine; and metabolic disorders (9 sources) High density lipoprotein deficiency 07-21-2019 Chronic Other nutritional; endocrine; and metabolic disorders (5 sources) Morbid obesity; Translations: [Morbid (severe) obesity due to excess calories] Onset: 9 Chronic Other nutritional; endocrine; and metabolic disorders (10 sources) Body mass index 30+ - obesity 10-30-2022 Chronic Other screening for suspected conditions (not mental disorders or infectious disease) (4 sources) Encounter for screening for malignant neoplasm of prostate; Translations: [Encounter for screening for malignant neoplasm of prostate] Onset: 4 Episodic Other upper respiratory disease (9 sources) Seasonal allergy 05-06-2019 Chronic Other upper respiratory infections (1 source) Acute upper respiratory infection; Translations: [Acute upper respiratory infection, unspecified] Episodic Phlebitis; thrombophlebitis and thromboembolism (3 sources) Vascular disorder of lower extremity; Translations: [Venous thromboembolism (VTE) of lower extremity] 10-22-2014 Episodic Residual codes; unclassified (5 sources) Sleep apnea; Translations: [Sleep apnea, unspecified] Onset: 9 Chronic Residual codes; unclassified (5 sources) Hypersomnia 10-30-2022 Chronic Residual codes; unclassified (5 sources) Obstructive sleep apnea syndrome 03-09-2023 Chronic Residual codes; unclassified (9 sources) Increased body mass index 11-03-2019 Episodic Thyroid disorders (5 sources) Multinodular goiter; Translations: [Nontoxic multinodular goiter] Onset: 5 12-03-2023 Chronic Unclassified (6 sources) Non-smoker 04-24-2022 Unclassified (5 sources) Patient encounter status 04-30-2023 Past or Other Problems Problem Classification Problem Date Documented Da te Episodic/Chronic Deficiency and other anemia (2 sources) Iron deficiency anemia, unspecified; Translations: [Iron deficiency anemia, unspecified] Onset: 04-23-2023 Episodic Deficiency and other anemia (2 sources) Anemia, unspecified; Translations: [Anemia, unspecified] Onset: 04-23-2023 Episodic Other non-traumatic joint disorders (1 source) Pain in right elbow; Translations: [Pain in right elbow] Onset: 06-06-2024 Episodic Results Test Name Value Interpretation Reference Range Facility [facility] 11-13-2024 CNOV Office Visit (UCWSTR ) RICHY BOB ([id number]) 1975 M Date Time Provider Department 11/13/24 11:15 AM ASHLYN LASSITER [facility] During your visit today, we recorded the following information about you: Temperature Pulse Respiration Blood pressure 98.7 degrees 73/minute 20/minute 141/91 Weight 113 kg Ashlyn Lassiter, [employer].DIRECTOR OF ANESTHESIA SERVICES 11/13/2024 11:30 AM Signed This note was created using Letsdeccoriter. Subjective Richy Bob is a 49 year old male. HPI Patient presents today complaining of 2 days of cough, chest tightness, sore throat, and headache. Denies any known fever. Denies any specific sick contacts. Review of Systems As above Objective BP 141/91 Pulse 73 Temp 37.1 ?C (98.7 ?F) Resp 20 Wt 113 kg (249 lb 1.9 oz) SpO2 96% BMI 37.33 kg/m? Physical Exam Vitals and nursing note reviewed. Constitutional: General: He is not in acute distress. Appearance: Normal appearance. He is not ill-appearing. HENT: Head: Normocephalic. Mouth/Throat: Mouth: Mucous membranes are moist. Eyes: Conjunctiva/sclera: Conjunctivae normal. Cardiovascular: Rate and Rhythm: Normal rate and regular rhythm. Pulmonary: Effort: Pulmonary effort is normal. Breath sounds: Wheezing and rhonchi present. Musculoskeletal: General: Normal range of motion. Cervical back: Normal range of motion. Skin: General: Skin is warm and dry. Neurological: General: No focal deficit present. Mental Status: He is alert. Psychiatric: Mood and Affect: Mood normal. Behavior: Behavior normal. Assessment and Plan ASSESSMENT/PLAN: 1. Lower resp. tract infection - ICD9: 519.8, ICD10: J22 Discussed with patient that with 2 days of symptoms it was hard to differentiate viral versus bacterial infection. Discussed possible viral testing which patient declines at this time. Discussed returning tomorrow for chest x-ray which patient also declines. As patient does note cough with coarse lung sounds throughout he will be started on doxycycline as noted below however patient was notified that symptoms may be viral in origin and would resolve either way. - DOXYCYCLINE MONOHYDRATE 100 MG CAPSULE - BENZONATATE 100 MG CAPSULE Ashlyn Lassiter APRN.CNP Allergies As of Date: 11/13/2024 Noted Allergy Reaction IBUPROFEN 01/05/2022 5 - Intolerance Comments: Causes internal bleeding Date Reviewed: 11/13/2024 Reviewed by: Ashlyn Lassiter APRN.DIRECTOR OF ANESTHESIA SERVICES - Fully Assessed Reason for Visit: Cough [28] Cmt: Chest congestion, tightness in chest, increasing x 2 days States SOB with deep breathing Primary Visit Diagnosis:Lower resp. tract infection [J22] Order(s):doxycycline monohydrate (MONODOX) 100 mg capsuleTake 1 capsule by mouth two times a day for 5 days.Disp: 10 capsuleRfl: 0 benzonatate (TESSALON PERLE) 100 mg capsuleTake 1 capsule by mouth three times a day as needed for cough for up to 12 doses.Disp: 12 capsuleRfl: 0 Prescriptions as of 11/13/2024 - ARIPiprazole (ABILIFY) 2 mg tablet Take 2 mg by mouth once daily. - cholecalciferol, Vitamin D3, (VITAMIN D3) 1,250 mcg (50,000 unit) cap capsule Take 50,000 Units by mouth once every month. - colchicine 0.6 mg tablet Take 0.6 mg by mouth two times a day. - LEXAPRO 20 mg tablet Take 20 mg by mouth once daily. - doxycycline monohydrate (MONODOX) 100 mg capsule Take 1 capsule by mouth two times a day for 5 days. - benzonatate (TESSALON PERLE) 100 mg capsule Take 1 capsule by mouth three times a day as needed for cough for up to 12 doses. - glimepiride (AMARYL) 2 mg tablet Take 2 mg by mouth once daily. - metFORMIN ER (GLUCOPHAGE XR) 500 mg 24 hr tablet Take 500 mg by mouth once daily. - ALLOPURINOL ORAL Take by mouth. - benzonatate (TESSALON PERLES) 100 mg capsule Take 1 capsule by mouth three times daily as needed for cough. - albuterol HFA (PROVENTIL HFA, VENTOLIN HFA) 90 mcg/actuation inhaler Inhale 2 Puffs as instructed every 4 hours as needed. - albuterol (PROVENTIL) 5 mg/mL nebu Inhale 0.5 mL as instructed one time only for 1 dose. 1 DOSE NOW - BACK OFFICE. PLACE 0.5 ML PER DROPPER AND 2.5 ML OF NORMAL SALINE INTO RESERVOIR. Meds Comments as of 10/19/2008: Pt. States all medications that are listed are what he is taking. Sophia Tomlinson Ma 10/19/2008 Problem List As Of Date 11/13/2024 Noted Resolved MORBID OBESITY [E66.01] 08/10/2008 DIABETES MELLITUS TYPE II-UNCOMPL [E11.9] 08/10/2008 GOUT NOS [M10.9] 08/10/2008 HYPERTENSION NOS [I10] 08/10/2008 SLEEP APNEA NOS [G47.30] 08/10/2008 Prescriptions ordered this encounter Disp Refills Start End DOXYCYCLINE MONOHYDRATE 100 MG CAPSU* 10 c* 0 11/13/2024 11/18/2024 Route: ORAL Sig: Take 1 capsule by mouth two times a day for 5 days. BENZONATATE 100 MG CAPSULE 12 c* 0 11/13/2024 Route: ORAL Sig: Take 1 capsule by mouth three times a day as needed for cough for up to 12 doses. Medications D (more content not included)... Normal [facility] .Auto Diffon 10-27-2024 Basophil, Absolute 0.0 10 3/mcL Normal 0.0-0.3 [place] Comment on above: Performed By: #### T SH, PSA, CBC, ANEU, URIC, CMP, LIPID, FT4, VIDH, A1C, GFR, ADIFF #### [address] [address] #### PTH #### [facility] [address] [place] [address] Basophils/100 WBC (Bld) 0.4 % Normal 0.0-2.5 [facility] Comment on above: Performed By: #### T SH, PSA, CBC, ANEU, URIC, CMP, LIPID, FT4, VIDH, A1C, GFR, ADIFF #### [place] [address] #### PTH #### [address] [address] Eosinophil, Absolute 0.1 10 3/mcL Normal 0.0-0.7 [facility] Comment on above: Performed By: #### T SH, PSA, CBC, ANEU, URIC, CMP, LIPID, FT4, VIDH, A1C, GFR, ADIFF #### [address] [address] #### PTH #### [address] [address] Eosinophils/100 WBC (Bld) 0.9 % Normal 0.0-6.0 [facility] Comment on above: Performed By: #### T SH, PSA, CBC, ANEU, URIC, CMP, LIPID, FT4, VIDH, A1C, GFR, ADIFF #### [address] [address] #### PTH #### [address] [address] Lymphocyte, Absolute 2.0 10 3/mcL Normal 0.9-4.3 [facility] Comment on above: Performed By: #### T SH, PSA, CBC, ANEU, URIC, CMP, LIPID, FT4, VIDH, A1C, GFR, ADIFF #### [address] [address] #### PTH #### [address] [address] Lymphocytes/100 WBC (Bld) 30.5 % Normal 20.0-40.0 [facility] Comment on above: Performed By: #### T SH, PSA, CBC, ANEU, URIC, CMP, LIPID, FT4, VIDH, A1C, GFR, ADIFF #### [address] [address] #### PTH #### [address] [address] Monocyte, Absolute 0.3 10 3/mcL Normal 0.1-1.4 [place] Comment on above: Performed By: #### T SH, PSA, CBC, ANEU, URIC, CMP, LIPID, FT4, VIDH, A1C, GFR, ADIFF #### [address] [address] #### PTH #### [address] [address] Monocytes/100 WBC (Bld) 4.6 % Normal 2.0-13.0 [facility] Comment on above: Performed By: #### T SH, PSA, CBC, ANEU, URIC, CMP, LIPID, FT4, VIDH, A1C, GFR, ADIFF #### [address] [address] #### PTH #### [address] [address] Neutrophils/100 WBC (Bld) 63.6 % Normal 50.0-75.0 [facility] Comment on above: Performed By: #### T SH, PSA, CBC, ANEU, URIC, CMP, LIPID, FT4, VIDH, A1C, GFR, ADIFF #### [address] [address] #### PTH #### [address] [address] .GFRon 10-27-2024 Estimated Glomerular Filtration Rate 53 ml/min/1.73sqm Normal [facility] Comment on above: Result Comment: Stages of Chronic Kidney Disease (CKD) Stage Description eGFR(ml/min/1.73 sq.m.) CKD 1 Normal kidney function or >=90 normal kindney function with possible kidney damage (ex. Proteinuria) CKD 2 Kidney damage with mild loss 60-89 of kidney function CKD 3a Mild to moderate loss of kidney 45-59 function CKD 3b Moderate to severe loss of 30-44 of kindey function CKD 4 Severe loss of kidney function 15-29 CKD 5 Kidney failure <15 Note: (go live 2024) the eGFR calculation was updated to the 2020 CKD-EPI creatinine equation without a race factor to calculate the eGFR results. Performed By: #### T SH, PSA, CBC, ANEU, URIC, CMP, LIPID, FT4, VIDH, A1C, GFR, ADIFF #### [address] [address] #### PTH #### [address] [address] .NEUABSon 10-27-2024 Neutrophil, Absolute 4.1 10 3/mcL Normal 2.3-8.1 [facility] Comment on above: Performed By: #### T SH, PSA, CBC, ANEU, URIC, CMP, LIPID, FT4, VIDH, A1C, GFR, ADIFF #### [address] [address] #### PTH #### [address] [address] A1Con 10-27-2024 Glucose [Mass/Vol] 114 mg/dL Normal [facility] Comment on above: Result Comment: Lucero mated Average Glucose calculated by equation ((28.7xA1C)-46.7) Estimated average glucose (eAG) is a calculated value from Hemoglobin A1C and is assisted sales representative of the average blood glucose level in the last 2-3 month period. Normal range: less than 114 mg/dL Performed By: #### T SH, PSA, CBC, ANEU, URIC, CMP, LIPID, FT4, VIDH, A1C, GFR, ADIFF #### [address] [address] #### PTH #### [place] [address] HbA1c (Bld) [Mass fraction] 5.6 % Normal 4.3-6.4 [facility] Comment on above: Performed By: #### T SH, PSA, CBC, ANEU, URIC, CMP, LIPID, FT4, VIDH, A1C, GFR, ADIFF #### [address] [address] #### PTH #### [place] [address] CBCon 10-27-2024 Erythrocyte distribution width (RBC) [Ratio] 13.3 % Normal 11.5-15.5 [facility] Comment on above: Performed By: #### T SH, PSA, CBC, ANEU, URIC, CMP, LIPID, FT4, VIDH, A1C, GFR, ADIFF #### [place] [address] #### PTH #### [place] [address] Hematocrit (Bld) [Volume fraction] 46.7 % Normal 40.0-52.0 [facility] Comment on above: Performed By: #### T SH, PSA, CBC, ANEU, URIC, CMP, LIPID, FT4, VIDH, A1C, GFR, ADIFF #### [place] [address] #### PTH #### [place] [address] Hgb 16.2 G/dL Normal 13.0-17.5 [facility] Comment on above: Performed By: #### T SH, PSA, CBC, ANEU, URIC, CMP, LIPID, FT4, VIDH, A1C, GFR, ADIFF #### [place] [address] #### PTH #### [place] [address] MCH (RBC) [Entitic mass] 31.4 pg Normal 27.0-33.0 [facility] Comment on above: Performed By: #### T SH, PSA, CBC, ANEU, URIC, CMP, LIPID, FT4, VIDH, A1C, GFR, ADIFF #### [place] [address] #### PTH #### [place] [address] MCHC 34.7 G/dL Normal 32.0-36.0 [facility] Comment on above: Performed By: #### T SH, PSA, CBC, ANEU, URIC, CMP, LIPID, FT4, VIDH, A1C, GFR, ADIFF #### [place] [address] #### PTH #### [place] [address] MCV (RBC) [Entitic vol] 90.3 fL Normal 81.0-100.0 [facility] Comment on above: Performed By: #### T SH, PSA, CBC, ANEU, URIC, CMP, LIPID, FT4, VIDH, A1C, GFR, ADIFF #### [place] [address] #### PTH #### [place] [address] Platelet 196 10 3/mcL Normal 150-450 [facility] Comment on above: Performed By: #### T SH, PSA, CBC, ANEU, URIC, CMP, LIPID, FT4, VIDH, A1C, GFR, ADIFF #### [place] [address] #### PTH #### [place] [address] Platelet mean volume (Bld) [Entitic vol] 7.6 fL Normal 6.4-10.5 [facility] Comment on above: Performed By: #### T SH, PSA, CBC, ANEU, URIC, CMP, LIPID, FT4, VIDH, A1C, GFR, ADIFF #### [place] [address] #### PTH #### [place] [address] RBC 5.17 10 6/mcL Normal 4.50-6.00 [facility] Comment on above: Performed By: #### T SH, PSA, CBC, ANEU, URIC, CMP, LIPID, FT4, VIDH, A1C, GFR, ADIFF #### [place] [address] #### PTH #### [place] [address] WBC 6.5 10 3/mcL Normal 4.5-10.8 [facility] Comment on above: Performed By: #### T SH, PSA, CBC, ANEU, URIC, CMP, LIPID, FT4, VIDH, A1C, GFR, ADIFF #### [place] [address] #### PTH #### [address] [address] CMPon 10-27-2024 Albumin Level 3.9 G/dL Normal 3.5-5.0 [facility] Comment on above: Performed By: #### T SH, PSA, CBC, ANEU, URIC, CMP, LIPID, FT4, VIDH, A1C, GFR, ADIFF #### [place] [address] #### PTH #### [place] [address] Albumin/Globulin [Mass ratio] 1.2 {ratio} Normal 1.1-2.5 [facility] Comment on above: Performed By: #### T SH, PSA, CBC, ANEU, URIC, CMP, LIPID, FT4, VIDH, A1C, GFR, ADIFF #### [place] [address] #### PTH #### [place] [address] ALP [Catalytic activity/Vol] 91 U/L Normal 40-135 [facility] Comment on above: Performed By: #### T SH, PSA, CBC, ANEU, URIC, CMP, LIPID, FT4, VIDH, A1C, GFR, ADIFF #### [address] [address] #### PTH #### [place] [address] ALT [Catalytic activity/Vol] 20 U/L Normal 16-63 [facility] Comment on above: Performed By: #### T SH, PSA, CBC, ANEU, URIC, CMP, LIPID, FT4, VIDH, A1C, GFR, ADIFF #### [place] [address] #### PTH #### [place] [address] AST [Catalytic activity/Vol] 23 U/L Normal 10-40 [facility] Comment on above: Performed By: #### T SH, PSA, CBC, ANEU, URIC, CMP, LIPID, FT4, VIDH, A1C, GFR, ADIFF #### [place] [address] #### PTH #### [address] [address] Bili Total 0.6 mg/dL Normal 0.2-1.0 [facility] Comment on above: Result Comment: Use of this assay is not recommended for patients undergoing treatment with eltrombopag due to the potential for falsely elevated results. Performed By: #### T SH, PSA, CBC, ANEU, URIC, CMP, LIPID, FT4, VIDH, A1C, GFR, ADIFF #### [place] [address] #### PTH #### [place] [id number] BUN/Creatinine Ratio 20 ratio Normal 7-27 [place] Comment on above: Performed By: #### T SH, PSA, CBC, ANEU, URIC, CMP, LIPID, FT4, VIDH, A1C, GFR, ADIFF #### [place] [address] #### PTH #### [place] [id number] Calcium [Mass/Vol] 8.9 mg/dL Normal 8.4-10.2 [facility] Comment on above: Performed By: #### T SH, PSA, CBC, ANEU, URIC, CMP, LIPID, FT4, VIDH, A1C, GFR, ADIFF #### [place] [address] #### PTH #### [place] [id number] Chloride [Moles/Vol] 107 mmol/L Normal 98-107 [place] Comment on above: Performed By: #### T SH, PSA, CBC, ANEU, URIC, CMP, LIPID, FT4, VIDH, A1C, GFR, ADIFF #### [place] [address] #### PTH #### [address] [address] CO2 [Moles/Vol] 22 mmol/L Normal 22-29 [facility] Comment on above: Performed By: #### T SH, PSA, CBC, ANEU, URIC, CMP, LIPID, FT4, VIDH, A1C, GFR, ADIFF #### [address] [address] #### PTH #### [place] [address] Creatinine [Mass/Vol] 1.58 mg/dL High 0.70-1.30 [facility] Comment on above: Result Comment: Test ing performed on Siemens Dimension EXL analyzer using a modified kinetic Robert technique. Performed By: #### T SH, PSA, CBC, ANEU, URIC, CMP, LIPID, FT4, VIDH, A1C, GFR, ADIFF #### [address] [address] #### PTH #### [place] [address] Electrolyte Balance 12.0 mEq/L Normal 4.0-15.0 [facility] Comment on above: Performed By: #### T SH, PSA, CBC, ANEU, URIC, CMP, LIPID, FT4, VIDH, A1C, GFR, ADIFF #### [address] [address] #### PTH #### [place] [address] Globulin 3.3 G/dL Normal 1.5-3.8 [facility] Comment on above: Performed By: #### T SH, PSA, CBC, ANEU, URIC, CMP, LIPID, FT4, VIDH, A1C, GFR, ADIFF #### [address] [address] #### PTH #### [address] [address] Glucose [Mass/Vol] 83 mg/dL Normal 70-105 [facility] Comment on above: Performed By: #### T SH, PSA, CBC, ANEU, URIC, CMP, LIPID, FT4, VIDH, A1C, GFR, ADIFF #### [address] [address] #### PTH #### [address] [address] Potassium [Moles/Vol] 4.0 mmol/L Normal 3.5-5.1 [facility] Comment on above: Performed By: #### T SH, PSA, CBC, ANEU, URIC, CMP, LIPID, FT4, VIDH, A1C, GFR, ADIFF #### [address] [address] #### PTH #### [address] [address] Sodium [Moles/Vol] 141 mmol/L Normal 136-145 [facility] Comment on above: Performed By: #### T SH, PSA, CBC, ANEU, URIC, CMP, LIPID, FT4, VIDH, A1C, GFR, ADIFF #### [place] [address] #### PTH #### [place] [address] Total Protein 7.2 G/dL Normal 6.4-8.2 [facility] Comment on above: Performed By: #### T SH, PSA, CBC, ANEU, URIC, CMP, LIPID, FT4, VIDH, A1C, GFR, ADIFF #### [place] [address] #### PTH #### [place] [address] Urea nitrogen [Mass/Vol] 31 mg/dL High 7-18 [facility] Comment on above: Performed By: #### T SH, PSA, CBC, ANEU, URIC, CMP, LIPID, FT4, VIDH, A1C, GFR, ADIFF #### [place] [address] #### PTH #### [address] [address] FT4on 10-27-2024 Free T4 [Mass/Vol] 0.79 ng/dL Normal 0.76-1.46 [facility] Comment on above: Performed By: #### T SH, PSA, CBC, ANEU, URIC, CMP, LIPID, FT4, VIDH, A1C, GFR, ADIFF #### [address] [address] #### PTH #### [address] [address] LIPIDon 10-27-2024 Cholesterol [Mass/Vol] 165 mg/dL Normal 0-200 [facility] Comment on above: Result Comment: Chol esterol Reference Interval: Less than 200 Desirable 200-239 Borderline high risk 240 and above High risk Performed By: #### T SH, PSA, CBC, ANEU, URIC, CMP, LIPID, FT4, VIDH, A1C, GFR, ADIFF #### [address] [address] #### PTH #### [place] [address] Cholesterol in HDL [Mass/Vol] 49 mg/dL Normal 40-60 [facility] Comment on above: Performed By: #### T SH, PSA, CBC, ANEU, URIC, CMP, LIPID, FT4, VIDH, A1C, GFR, ADIFF #### [address] [address] #### PTH #### [address] [address] Cholesterol in LDL [Mass/Vol] 73 mg/dL Normal 0-130 [facility] Comment on above: Performed By: #### T SH, PSA, CBC, ANEU, URIC, CMP, LIPID, FT4, VIDH, A1C, GFR, ADIFF #### [address] [address] #### PTH #### [address] [address] Triglyceride [Mass/Vol] 214 mg/dL High 0-150 [facility] Comment on above: Result Comment: Trig lyceride Reference Interval: Less than 150 Normal 150-199 Borderline high risk 200-499 High risk 500 or higher Very high risk Performed By: #### T SH, PSA, CBC, ANEU, URIC, CMP, LIPID, FT4, VIDH, A1C, GFR, ADIFF #### [address] [address] #### PTH #### [address] [address] MALBRon 10-27-2024 U Creatinine 318.4 mg/dL Normal [facility] Comment on above: Performed By: #### T SH, PSA, CBC, ANEU, URIC, CMP, LIPID, FT4, VIDH, A1C, GFR, ADIFF #### [address] [address] #### PTH #### [address] [address] U Microalb 516.2 mg/L Normal [facility] Comment on above: Performed By: #### T SH, PSA, CBC, ANEU, URIC, CMP, LIPID, FT4, VIDH, A1C, GFR, ADIFF #### [address] [address] #### PTH #### [place] [address] U Ratio Alb/Cre 162 mg/G High 0-30 [facility] Comment on above: Performed By: #### T SH, PSA, CBC, ANEU, URIC, CMP, LIPID, FT4, VIDH, A1C, GFR, ADIFF #### [address] [address] #### PTH #### [address] [address] PSAon 10-27-2024 Prostate Specific Antigen 0.48 ng/mL Normal 0.00-4.00 [facility] Comment on above: Performed By: #### T SH, PSA, CBC, ANEU, URIC, CMP, LIPID, FT4, VIDH, A1C, GFR, ADIFF #### [address] [address] #### PTH #### [address] [address] PTHon 10-27-2024 PTH, Intact 227.0 pg/mL High 18.5-88.0 [facility] Comment on above: Performed By: #### T SH, PSA, CBC, ANEU, URIC, CMP, LIPID, FT4, VIDH, A1C, GFR, ADIFF #### [address] [address] #### PTH #### [place] [address] TSHon 10-27-2024 TSH Qn 1.72 m[IU]/L Normal 0.36-3.74 [facility] Comment on above: Performed By: #### T SH, PSA, CBC, ANEU, URIC, CMP, LIPID, FT4, VIDH, A1C, GFR, ADIFF #### [address] [address] #### PTH #### [place] [address] URICon 10-27-2024 Uric Acid Lvl 7.6 mg/dL High 3.5-7.2 [facility] Comment on above: Performed By: #### T SH, PSA, CBC, ANEU, URIC, CMP, LIPID, FT4, VIDH, A1C, GFR, ADIFF #### [address] [address] #### PTH #### [place] [address] VIDHon 10-27-2024 Vit. D 25-Hydroxy 26.4 ng/mL Normal [facility] Comment on above: Result Comment: Inte rpretive Values Based on Total 25(OH) Vitamin D: Deficient <20 ng/mL Insufficient 20 - <30 ng/mL Sufficient 30-100 ng/mL Performed By: #### T SH, PSA, CBC, ANEU, URIC, CMP, LIPID, FT4, VIDH, A1C, GFR, ADIFF #### [address] [address] #### PTH #### [place] [address] US THYROIDon 06-20-2024 US THYROID ORIGINAL EXAMINATION: ULTRASOUND OF THE THYROID WITH COLOR DOPPLER FLOW [id number]/6/2024 10:03 am Ultrasound Thyroid COMPARISON: Thyroid ultrasound 11/18/2023 HISTORY: ORDERING SYSTEM PROVIDED HISTORY: Reason for Exam: Continued surveillance of multiple thyroid nodules in bilateral lobes with a family history of thyroid disease, FINDINGS: Permanently stored ultrasound images were reviewed. Size right thyroid lobe: 4.8 x 1.5 x 2.0 cm Size left thyroid lobe: 4.6 x 1.6 x 2.1 cm Size isthmus: 0.3 cm Texture: Heterogeneous Estimated total number of nodules greater than or equal to 1 cm: 3 There are multiple additional bilateral subcentimeter nodules. Nodule#: # 1: Maximum size: 1.2 cm . All dimensions: 1.1 x 1.0 x 1.2 cm Location: Left Lower Composition: solid or almost completely solid: 2 points Echogenicity: isoechoic: 1 point Shape: wider than tall: 0 points Margins: ill-defined: 0 points Echogenic foci: macrocalicfications: 1 point ACR Total Points: 4; ACR TI-RADS risk category: TR4 - moderately suspicious nodule. Nodule#: # 2: Maximum size: 1.0 cm . All dimensions: 0.8 x 0.6 x 1.0 cm Location: Left Mid Composition: solid or almost completely solid: 2 points Echogenicity: hypoechoic: 2 points Shape: wider than tall: 0 points Margins: smooth: 0 points Echogenic foci: none: 0 points ACR Total Points: 4; ACR TI-RADS risk category: TR4 - moderately suspicious nodule. Nodule#: # 3: Maximum size: 1.0 cm . All dimensions: 0.8 x 0.9 x 1.0 cm Location: Left Mid Composition: mixed cystic and solid: 1 point Echogenicity: hypoechoic: 2 points Shape: wider than tall: 0 points Margins: smooth: 0 points Echogenic foci: none: 0 points ACR Total Points: 3; ACR TI-RADS risk category: TR3 - mildly suspicious nodule. Nodule#: # 4: Maximum size: 0.9 cm . All dimensions: 0.7 x 0.7 x 0.9 cm Location: Right Mid Composition: mixed cystic and solid: 1 point Echogenicity: hypoechoic: 2 points Shape: wider than tall: 0 points Margins: smooth: 0 points Echogenic foci: none: 0 points ACR Total Points: 3; ACR TI-RADS risk category: TR3 - mildly suspicious nodule. These nodules are grossly stable compared to the prior thyroid ultrasound study from 11/18/2023. IMPRESSION: Grossly stable bilateral thyroid nodules, most of which are subcentimeter in size. Nodules 1 and 2 are ACR TI-RADS 2017 Category 4. Recommend: Follow-up ultrasound in 1 year. TR4: 4-6 points moderately suspicious nodule. If 1.0 cm - 1.4 cm follow up ultrasound at 1 2 3 and 5 years is recommended. ACR TI-RADS 2017 Recommendations: TR1(0 points) : No FNA or follow up TR2 (2 points) : No FNA or follow up TR3 (3 points) : FNA if >/= 2.5 cm, follow up if 1.5 - 2.4 cm in 1, 3, and 5 years TR4 (4-6 points) : FNA if >/= 1.5 cm, follow up if 1.0 - 1.4 cm in 1, 2, 3, and 5 years TR5 (>/= 7 points) : FNA if >/= 1.0 cm, follow up if 0.5 - 0.9 cm every year for 5 years *ACR TI-RADS recommends that no more than two nodules with the highest ACR TI-RADS total point should be biopsied and no more than four nodules should be followed. I have personally reviewed the images of this examination and agree with the resident's findings and interpretation. Interpreted by: Tez Capone DO Preliminary Report By: [place] Electronically signed By Tez Capone DO Dictated Date: 06/20/2024 8:45:46 AM Prelim Date: 06/20/2024 9:50:34 AM Sign Date: 06/20/2024 9:50:34 AM Ordering Provider: RICHY HEREDIA [facility] Elbow min 3 Viewson 05-13-20 24 Elbow min 3 Views [facility] Imaging Services [address] [place] [address] Elbow min 3 Views MR#: [id number] Acct: [id number] Name: RICHY BOB Rep #: [id number] : 1975 M 49 From: Grayson Jolly MD PCP: KENA Campo Status: REG CLI Study: Elbow min 3 Views Date of Exam: 05/13/24 Exam# [id number] Ordering Dr: Richy Heredia NP [employer] [id number] STUDY: X-RAY - RIGHT ELBOW REASON FOR EXAM: Male, 49 years old. PAIN AND SWELLING / EVAL CALCIFICATION IN COMMON ESTENSOR/FLEX MASS TECHNIQUE: 3 views of the right elbow. COMPARISON: None. FINDINGS: Normal visualized humerus, radius and ulna. Normal radiocapitellar and ulnotrochlear articulations. The soft tissue structures are unremarkable. There is no abnormal soft tissue calcification noted. There is no demonstrated fracture. RAD/Elbow min 3 Views IMPRESSION: Normal x-ray examination of the right elbow. No abnormal soft tissue calcification noted. Electronically Signed: Grayson Jolly MD at 15:44 EDT , CC: KENA Heredia [employer] Pens Assembler: Signed Normal [facility] RENINon 05-03-2024 Renin Activity 0.768 ng/mL/hr Normal 0.167-5.380 [facility] Comment on above: Result Comment: This test was developed and its performance characteristics determined by [facility]. It has not been cleared or approved by the Food and Drug Administration. Performed At: [address] [id number] Felipe Pickens MD Ph:[phone] Performed By: #### T SH, PSA, CBC, ANEU, URIC, CMP, LIPID, FT4, VIDH, A1C, GFR, ADIFF #### [facility] [address] [place] [id number] #### PTH #### [address] [address] .Auto Diffon 04-28-2024 Basophil, Absolute 0.0 10 3/mcL Normal 0.0-0.2 [place] Comment on above: Performed By: #### T SH, PSA, CBC, ANEU, URIC, CMP, LIPID, FT4, VIDH, A1C, GFR, ADIFF #### [address] [address] #### PTH #### [address] [address] Basophils/100 WBC (Bld) 0.4 % Normal 0.0-2.5 [facility] Comment on above: Performed By: #### T SH, PSA, CBC, ANEU, URIC, CMP, LIPID, FT4, VIDH, A1C, GFR, ADIFF #### [address] [address] #### PTH #### [address] [address] Eosinophil, Absolute 0.1 10 3/mcL Normal 0.0-0.7 [facility] Comment on above: Performed By: #### T SH, PSA, CBC, ANEU, URIC, CMP, LIPID, FT4, VIDH, A1C, GFR, ADIFF #### [address] [address] #### PTH #### [address] [address] Eosinophils/100 WBC (Bld) 1.1 % Normal 0.0-7.0 [facility] Comment on above: Performed By: #### T SH, PSA, CBC, ANEU, URIC, CMP, LIPID, FT4, VIDH, A1C, GFR, ADIFF #### [address] [address] #### PTH #### [address] [address] Lymphocyte, Absolute 2.1 10 3/mcL Normal 0.9-4.3 [facility] Comment on above: Performed By: #### T SH, PSA, CBC, ANEU, URIC, CMP, LIPID, FT4, VIDH, A1C, GFR, ADIFF #### [address] [address] #### PTH #### [address] [address] Lymphocytes/100 WBC (Bld) 32.0 % Normal 20.0-40.0 [facility] Comment on above: Performed By: #### T SH, PSA, CBC, ANEU, URIC, CMP, LIPID, FT4, VIDH, A1C, GFR, ADIFF #### [address] [address] #### PTH #### [address] [address] Monocyte, Absolute 0.3 10 3/mcL Normal 0.1-1.4 [place] Comment on above: Performed By: #### T SH, PSA, CBC, ANEU, URIC, CMP, LIPID, FT4, VIDH, A1C, GFR, ADIFF #### [place] [address] #### PTH #### [address] [address] Monocytes/100 WBC (Bld) 4.8 % Normal 2.0-13.0 [facility] Comment on above: Performed By: #### T SH, PSA, CBC, ANEU, URIC, CMP, LIPID, FT4, VIDH, A1C, GFR, ADIFF #### [address] [address] #### PTH #### [address] [address] Neutrophils/100 WBC (Bld) 61.7 % Normal 50.0-75.0 [facility] Comment on above: Performed By: #### T SH, PSA, CBC, ANEU, URIC, CMP, LIPID, FT4, VIDH, A1C, GFR, ADIFF #### [address] [address] #### PTH #### [address] [address] .GFRon 04-28-2024 GFR 60 ml/min/1.73sqm Normal [facility] Comment on above: Result Comment: GFR Population mean for , Non- Americans Ages 20-29 = 116 mL/min/1.73 sq.m. Ages 30-39 = 107 mL/min/1.73 sq.m. Ages 40-49 = 99 mL/min/1.73 sq.m. Ages 50-59 = 93 mL/min/1.73 sq.m. Ages 60-69 = 85 mL/min/1.73 sq.m. Ages 70+ = 75 mL/min/1.73 sq.m. Chronic Kidney Disease: Less than 60 mL/min/1.73 square meters End Stage Renal Disease: Less than 15 mL/min/1.73 square meters Performed By: #### T SH, PSA, CBC, ANEU, URIC, CMP, LIPID, FT4, VIDH, A1C, GFR, ADIFF #### [address] [address] #### PTH #### [place] [address] GFR Non- 50 ml/min/1.73sqm Normal [facility] Comment on above: Result Comment: GFR Population mean for , Non- Americans Ages 20-29 = 116 mL/min/1.73 sq.m. Ages 30-39 = 107 mL/min/1.73 sq.m. Ages 40-49 = 99 mL/min/1.73 sq.m. Ages 50-59 = 93 mL/min/1.73 sq.m. Ages 60-69 = 85 mL/min/1.73 sq.m. Ages 70+ = 75 mL/min/1.73 sq.m. Chronic Kidney Disease: Less than 60 mL/min/1.73 square meters End Stage Renal Disease: Less than 15 mL/min/1.73 square meters Performed By: #### T SH, PSA, CBC, ANEU, URIC, CMP, LIPID, FT4, VIDH, A1C, GFR, ADIFF #### [address] [address] #### PTH #### [address] [address] .NEUABSon 04-28-2024 Neutrophil, Absolute 4.0 10 3/mcL Normal 2.3-8.1 [facility] Comment on above: Performed By: #### T SH, PSA, CBC, ANEU, URIC, CMP, LIPID, FT4, VIDH, A1C, GFR, ADIFF #### [address] [address] #### PTH #### [address] [address] A1Con 04-28-2024 Glucose [Mass/Vol] 111 mg/dL Normal [facility] Comment on above: Result Comment: Lucero mated Average Glucose calculated by equation ((28.7xA1C)-46.7) Estimated average glucose (eAG) is a calculated value from Hemoglobin A1C and is assisted sales representative of the average blood glucose level in the last 2-3 month period. Normal range: less than 114 mg/dL Performed By: #### T SH, PSA, CBC, ANEU, URIC, CMP, LIPID, FT4, VIDH, A1C, GFR, ADIFF #### [place] [address] #### PTH #### [address] [address] HbA1c (Bld) [Mass fraction] 5.5 % Normal 4.3-6.4 [facility] Comment on above: Performed By: #### T SH, PSA, CBC, ANEU, URIC, CMP, LIPID, FT4, VIDH, A1C, GFR, ADIFF #### [address] [address] #### PTH #### [address] [address] CBCon 04-28-2024 Erythrocyte distribution width (RBC) [Ratio] 13.7 % Normal 11.5-15.5 [facility] Comment on above: Performed By: #### T SH, PSA, CBC, ANEU, URIC, CMP, LIPID, FT4, VIDH, A1C, GFR, ADIFF #### [place] [id number] #### PTH #### [place] [address] Hematocrit (Bld) [Volume fraction] 46.0 % Normal 40.0-52.0 [facility] Comment on above: Performed By: #### T SH, PSA, CBC, ANEU, URIC, CMP, LIPID, FT4, VIDH, A1C, GFR, ADIFF #### [place] [address] #### PTH #### [place] [address] Hgb 15.8 G/dL Normal 13.0-17.5 [facility] Comment on above: Performed By: #### T SH, PSA, CBC, ANEU, URIC, CMP, LIPID, FT4, VIDH, A1C, GFR, ADIFF #### [place] [address] #### PTH #### [place] [address] MCH (RBC) [Entitic mass] 31.5 pg Normal 27.0-33.0 [facility] Comment on above: Performed By: #### T SH, PSA, CBC, ANEU, URIC, CMP, LIPID, FT4, VIDH, A1C, GFR, ADIFF #### [place] [address] #### PTH #### [place] [address] MCHC 34.4 G/dL Normal 32.0-36.0 [facility] Comment on above: Performed By: #### T SH, PSA, CBC, ANEU, URIC, CMP, LIPID, FT4, VIDH, A1C, GFR, ADIFF #### [place] [address] #### PTH #### [place] [address] MCV (RBC) [Entitic vol] 91.7 fL Normal 81.0-100.0 [facility] Comment on above: Performed By: #### T SH, PSA, CBC, ANEU, URIC, CMP, LIPID, FT4, VIDH, A1C, GFR, ADIFF #### [place] [address] #### PTH #### [place] [address] Platelet 201 10 3/mcL Normal 150-450 [facility] Comment on above: Performed By: #### T SH, PSA, CBC, ANEU, URIC, CMP, LIPID, FT4, VIDH, A1C, GFR, ADIFF #### [place] [address] #### PTH #### [place] [address] Platelet mean volume (Bld) [Entitic vol] 7.7 fL Normal 6.4-10.5 [facility] Comment on above: Performed By: #### T SH, PSA, CBC, ANEU, URIC, CMP, LIPID, FT4, VIDH, A1C, GFR, ADIFF #### [place] [address] #### PTH #### [place] [address] RBC 5.02 10 6/mcL Normal 4.50-6.00 [facility] Comment on above: Performed By: #### T SH, PSA, CBC, ANEU, URIC, CMP, LIPID, FT4, VIDH, A1C, GFR, ADIFF #### [place] [address] #### PTH #### [place] [address] WBC 6.4 10 3/mcL Normal 4.5-10.8 [facility] Comment on above: Performed By: #### T SH, PSA, CBC, ANEU, URIC, CMP, LIPID, FT4, VIDH, A1C, GFR, ADIFF #### [place] [address] #### PTH #### [place] [address] CMPon 04-28-2024 Albumin Level 3.6 G/dL Normal 3.5-5.0 [facility] Comment on above: Performed By: #### T SH, PSA, CBC, ANEU, URIC, CMP, LIPID, FT4, VIDH, A1C, GFR, ADIFF #### [address] [address] #### PTH #### [address] [address] Albumin/Globulin [Mass ratio] 1.2 {ratio} Normal 1.1-2.5 [facility] Comment on above: Performed By: #### T SH, PSA, CBC, ANEU, URIC, CMP, LIPID, FT4, VIDH, A1C, GFR, ADIFF #### [address] [address] #### PTH #### [address] [address] ALP [Catalytic activity/Vol] 86 U/L Normal 40-135 [facility] Comment on above: Performed By: #### T SH, PSA, CBC, ANEU, URIC, CMP, LIPID, FT4, VIDH, A1C, GFR, ADIFF #### [address] [address] #### PTH #### [address] [address] ALT [Catalytic activity/Vol] 23 U/L Normal 16-63 [facility] Comment on above: Performed By: #### T SH, PSA, CBC, ANEU, URIC, CMP, LIPID, FT4, VIDH, A1C, GFR, ADIFF #### [address] [address] #### PTH #### [address] [address] AST [Catalytic activity/Vol] 18 U/L Normal 10-40 [facility] Comment on above: Performed By: #### T SH, PSA, CBC, ANEU, URIC, CMP, LIPID, FT4, VIDH, A1C, GFR, ADIFF #### [address] [address] #### PTH #### [address] [address] Bili Total 0.6 mg/dL Normal 0.2-1.0 [facility] Comment on above: Result Comment: Use of this assay is not recommended for patients undergoing treatment with eltrombopag due to the potential for falsely elevated results. Performed By: #### T SH, PSA, CBC, ANEU, URIC, CMP, LIPID, FT4, VIDH, A1C, GFR, ADIFF #### [place] [address] #### PTH #### [place] [address] BUN/Creatinine Ratio 17 ratio Normal 7-27 [place] Comment on above: Performed By: #### T SH, PSA, CBC, ANEU, URIC, CMP, LIPID, FT4, VIDH, A1C, GFR, ADIFF #### [place] [address] #### PTH #### [place] [address] Calcium [Mass/Vol] 8.7 mg/dL Normal 8.4-10.2 [facility] Comment on above: Performed By: #### T SH, PSA, CBC, ANEU, URIC, CMP, LIPID, FT4, VIDH, A1C, GFR, ADIFF #### [place] [address] #### PTH #### [place] [address] Chloride [Moles/Vol] 106 mmol/L Normal 98-107 [place] Comment on above: Performed By: #### T SH, PSA, CBC, ANEU, URIC, CMP, LIPID, FT4, VIDH, A1C, GFR, ADIFF #### [place] [address] #### PTH #### [place] [id number] CO2 [Moles/Vol] 25 mmol/L Normal 22-29 [facility] Comment on above: Performed By: #### T SH, PSA, CBC, ANEU, URIC, CMP, LIPID, FT4, VIDH, A1C, GFR, ADIFF #### [place] [address] #### PTH #### [place] [address] Creatinine [Mass/Vol] 1.50 mg/dL High 0.70-1.30 [facility] Comment on above: Result Comment: Test ing performed on [employer] Dimension EXL analyzer using a modified kinetic Robert technique. Performed By: #### T SH, PSA, CBC, ANEU, URIC, CMP, LIPID, FT4, VIDH, A1C, GFR, ADIFF #### [place] [address] #### PTH #### [place] [address] Electrolyte Balance 7.0 mEq/L Normal 4.0-15.0 [facility] Comment on above: Performed By: #### T SH, PSA, CBC, ANEU, URIC, CMP, LIPID, FT4, VIDH, A1C, GFR, ADIFF #### [place] [address] #### PTH #### [place] [address] Globulin 3.0 G/dL Normal [facility] Comment on above: Performed By: #### T SH, PSA, CBC, ANEU, URIC, CMP, LIPID, FT4, VIDH, A1C, GFR, ADIFF #### [place] [address] #### PTH #### [place] [address] Glucose [Mass/Vol] 105 mg/dL Normal 70-105 [facility] Comment on above: Performed By: #### T SH, PSA, CBC, ANEU, URIC, CMP, LIPID, FT4, VIDH, A1C, GFR, ADIFF #### [place] [address] #### PTH #### [place] [address] Potassium [Moles/Vol] 3.9 mmol/L Normal 3.5-5.1 [facility] Comment on above: Performed By: #### T SH, PSA, CBC, ANEU, URIC, CMP, LIPID, FT4, VIDH, A1C, GFR, ADIFF #### [address] [address] #### PTH #### [place] [address] Sodium [Moles/Vol] 138 mmol/L Normal 136-145 [facility] Comment on above: Performed By: #### T SH, PSA, CBC, ANEU, URIC, CMP, LIPID, FT4, VIDH, A1C, GFR, ADIFF #### [address] [address] #### PTH #### [place] [address] Total Protein 6.6 G/dL Normal 6.4-8.2 [facility] Comment on above: Performed By: #### T SH, PSA, CBC, ANEU, URIC, CMP, LIPID, FT4, VIDH, A1C, GFR, ADIFF #### [place] [address] #### PTH #### [place] [address] Urea nitrogen [Mass/Vol] 26 mg/dL High 7-18 [facility] Comment on above: Performed By: #### T SH, PSA, CBC, ANEU, URIC, CMP, LIPID, FT4, VIDH, A1C, GFR, ADIFF #### [place] [address] #### PTH #### [place] [address] LABORATORYOrdered By: SYSTEM SYSTEM on 04-28-2024 25-hydroxyvitamin D3 [Mass/Vol] 34.5 ng/mL Invalid Interpretation Code AO ADM SS Comment on above: Interpretive Data: I nterpretive Values Based on Total 25(OH) Vitamin D: Deficient <20 ng/mL Insufficient 20 - <30 ng/mL Sufficient 30-100 ng/mL Albumin BCP dye [Mass/Vol] 3.6 G/dL Normal 3.5 - 5.0 G/dL AO ADM SS Albumin/Globulin [Mass ratio] 1.2 {ratio} Normal 1.1 - 2.5 ratio AO ADM SS ALP [Catalytic activity/Vol] 86 U/L Normal 40 - 135 U/L AO ADM SS ALT With P-5'-P [Catalytic activity/Vol] 23 U/L Normal 16 - 63 U/L AO ADM SS AST With P-5'-P [Catalytic activity/Vol] 18 U/L Normal 10 - 40 U/L AO ADM SS Basophils (Bld) [#/Vol] 0.0 103/mcL Normal 0.0 - 0.2 10^3/mcL AO Workflow SS Basophils/100 WBC (Bld) 0.4 % Normal 0.0 - 2.5 % AO Workflow SS Bilirubin [Mass/Vol] 0.6 mg/dL Normal 0.2 - 1 .0 mg/dL AO ADM SS Comment on above: Interpretive Data: U se of this assay is not recommended for patients undergoing treatment with eltrombopag due to the potential for falsely elevated results. Calcium [Mass/Vol] 8.7 mg/dL Normal 8.4 - 10. 2 mg/dL AO ADM SS Chloride [Moles/Vol] 106 mmol/L Normal 98 - 10 7 mmol/L AO ADM SS CO2 [Moles/Vol] 25 mmol/L Normal 22 - 29 mmol/L AO ADM SS Creatinine [Mass/Vol] 1.50 mg/dL High 0.70 - 1.30 mg/dL AO ADM SS Comment on above: Interpretive Data: T esting performed on Siemens Dimension EXL analyzer using a modified kinetic Robert technique. Electrolyte Balance 7.0 mEq/L Normal 4.0 - 15 .0 mEq/L AO ADM SS Eosinophil, Absolute 0.1 103/mcL Normal 0.0 - 0 .7 10^3/mcL AO Workflow SS Eosinophils/100 WBC (Bld) 1.1 % Normal 0.0 - 7.0 % AO Workflow SS Erythrocyte distribution width (RBC) [Ratio] 13.7 % Normal 11.5 - 15.5 % AO Workflow SS GFR/1.73 sq M.predicted among blacks MDRD (S/P/Bld) [Vol rate/Area] 60 ml/min/1.73sqm Invalid Interpretation Code AO Chemistry S Comment on above: Interpretive Data: GFR Population mean for , Non- Americans Ages 20-29 = 116 mL/min/1.73 sq.m. Ages 30-39 = 107 mL/min/1.73 sq.m. Ages 40-49 = 99 mL/min/1.73 sq.m. Ages 50-59 = 93 mL/min/1.73 sq.m. Ages 60-69 = 85 mL/min/1.73 sq.m. Ages 70+ = 75 mL/min/1.73 sq.m. Chronic Kidney Disease: Less than 60 mL/min/1.73 square meters End Stage Renal Disease: Less than 15 mL/min/1.73 square meters GFR/1.73 sq M.predicted among non-blacks MDRD (S/P/Bld) [Vol rate/Area] 50 ml/min/1.73sqm Invalid Interpretation Code AO Chemistry S Comment on above: Interpretive Data: GFR Population mean for , Non- Americans Ages 20-29 = 116 mL/min/1.73 sq.m. Ages 30-39 = 107 mL/min/1.73 sq.m. Ages 40-49 = 99 mL/min/1.73 sq.m. Ages 50-59 = 93 mL/min/1.73 sq.m. Ages 60-69 = 85 mL/min/1.73 sq.m. Ages 70+ = 75 mL/min/1.73 sq.m. Chronic Kidney Disease: Less than 60 mL/min/1.73 square meters End Stage Renal Disease: Less than 15 mL/min/1.73 square meters Globulin 3.0 G/dL Invalid Interpretation Code AO ADM SS Glucose [Mass/Vol] 111 mg/dL Invalid Interpretation Code AO Chemistry S Comment on above: Interpretive Data: E stimated average glucose (eAG) is a calculated value from Hemoglobin A1C and is assisted sales representative of the average blood glucose level in the last 2-3 month period. Normal range: less than 114 mg/dL Glucose [Mass/Vol] 105 mg/dL Normal 70 - 105 mg/dL AO ADM SS HbA1c (Bld) [Mass fraction] 5.5 % Normal 4.3 - 6.4 % AO ADM SS Hematocrit (Bld) [Volume fraction] 46.0 % Normal 40.0 - 52.0 % AO Workflow SS Hemoglobin (Bld) [Mass/Vol] 15.8 G/dL Normal 13.0 - 17.5 G/dL AO Workflow SS Lymphocytes (Bld) [#/Vol] 2.1 103/mcL Normal 0.9 - 4.3 10^3/mcL AO Workflow SS Lymphocytes/100 WBC (Bld) 32.0 % Normal 20.0 - 40.0 % AO Workflow SS MCH (RBC) [Entitic mass] 31.5 pg Normal 27.0 - 33.0 pg AO Workflow SS MCHC 34.4 G/dL Normal 32.0 - 36.0 G/dL AO Workflow SS MCV (RBC) [Entitic vol] 91.7 fL Normal 81.0 - 100.0 fL AO Workflow SS Monocytes (Bld) [#/Vol] 0.3 103/mcL Normal 0.1 - 1.4 10^3/mcL AO Workflow SS Monocytes/100 WBC (Bld) 4.8 % Normal 2.0 - 13.0 % AO Workflow SS Neutrophils (Bld) [#/Vol] 4.0 103/mcL Normal 2.3 - 8.1 10^3/mcL AO Workflow SS Neutrophils/100 WBC (Bld) 61.7 % Normal 50.0 - 75.0 % AO Workflow SS Parathyrin.intact [Mass/Vol] 252.7 pg/mL High 18.5 - 88.0 pg/mL AH ADM SS Platelet mean volume (Bld) [Entitic vol] 7.7 fL Normal 6.4 - 10.5 fL AO Workflow SS Platelets (Bld) [#/Vol] 201 103/mcL Normal 150 - 450 10^3/mcL AO Workflow SS Potassium [Moles/Vol] 3.9 mmol/L Normal 3.5 - 5.1 mmol/L AO ADM SS Protein [Mass/Vol] 6.6 G/dL Normal 6.4 - 8.2 G/dL AO ADM SS RBC (Bld) [#/Vol] 5.02 106/mcL Normal 4.50 - 6.0 0 10^6/mcL AO Workflow SS Sodium [Moles/Vol] 138 mmol/L Normal 136 - 145 mmol/L AO ADM SS TSH Qn 1.89 m[IU]/L Normal 0.36 - 3.74 mcIU/mL AO ADM SS Urea nitrogen [Mass/Vol] 26 mg/dL High 7 - 18 mg/dL AO ADM SS Urea nitrogen/Creatinine [Mass ratio] 17 ratio Normal 7 - 27 ratio AO ADM SS Uric Acid Lvl 7.5 mg/dL High 3.5 - 7.2 mg/dL AO ADM SS WBC (Bld) [#/Vol] 6.4 103/mcL Normal 4.5 - 10.8 10^3/mcL AO Workflow SS LABORATORYOrdered By: Rafi Silveira on 04-28-2024 Cholesterol [Mass/Vol] 152 mg/dL Normal 0 - 2 00 mg/dL AO ADM SS Comment on above: Interpretive Data: C holesterol Reference Interval: Less than 200 Desirable 200-239 Borderline high risk 240 and above High risk Cholesterol in HDL [Mass/Vol] 42 mg/dL Normal 40 - 60 mg/dL AO ADM SS Cholesterol in LDL [Mass/Vol] 66 mg/dL Normal 0 - 130 mg/dL AO ADM SS Triglyceride [Mass/Vol] 219 mg/dL High 0 - 150 mg/dL AO ADM SS Comment on above: Interpretive Data: T riglyceride Reference Interval: Less than 150 Normal 150-199 Borderline high risk 200-499 High risk 500 or higher Very high risk LIPIDon 04-28-2024 Cholesterol [Mass/Vol] 152 mg/dL Normal 0-200 [facility] Comment on above: Result Comment: Chol esterol Reference Interval: Less than 200 Desirable 200-239 Borderline high risk 240 and above High risk Performed By: #### T SH, PSA, CBC, ANEU, URIC, CMP, LIPID, FT4, VIDH, A1C, GFR, ADIFF #### [address] [address] #### PTH #### [place] [address] Cholesterol in HDL [Mass/Vol] 42 mg/dL Normal 40-60 [facility] Comment on above: Performed By: #### T SH, PSA, CBC, ANEU, URIC, CMP, LIPID, FT4, VIDH, A1C, GFR, ADIFF #### [address] [address] #### PTH #### [place] [address] Cholesterol in LDL [Mass/Vol] 66 mg/dL Normal 0-130 [facility] Comment on above: Performed By: #### T SH, PSA, CBC, ANEU, URIC, CMP, LIPID, FT4, VIDH, A1C, GFR, ADIFF #### [place] [address] #### PTH #### [place] [address] Triglyceride [Mass/Vol] 219 mg/dL High 0-150 [facility] Comment on above: Result Comment: Trig lyceride Reference Interval: Less than 150 Normal 150-199 Borderline high risk 200-499 High risk 500 or higher Very high risk Performed By: #### T SH, PSA, CBC, ANEU, URIC, CMP, LIPID, FT4, VIDH, A1C, GFR, ADIFF #### [place] [address] #### PTH #### [place] [address] PTHon 04-28-2024 PTH, Intact 252.7 pg/mL High 18.5-88.0 [facility] Comment on above: Performed By: #### T SH, PSA, CBC, ANEU, URIC, CMP, LIPID, FT4, VIDH, A1C, GFR, ADIFF #### [place] [address] #### PTH #### [place] [address] TSHon 04-28-2024 TSH Qn 1.89 m[IU]/L Normal 0.36-3.74 [facility] Comment on above: Performed By: #### T SH, PSA, CBC, ANEU, URIC, CMP, LIPID, FT4, VIDH, A1C, GFR, ADIFF #### [place] [address] #### PTH #### [place] [address] URICon 04-28-2024 Uric Acid Lvl 7.5 mg/dL High 3.5-7.2 [facility] Comment on above: Performed By: #### T SH, PSA, CBC, ANEU, URIC, CMP, LIPID, FT4, VIDH, A1C, GFR, ADIFF #### [address] [address] #### PTH #### [address] [address] VIDHon 04-28-2024 Vit. D 25-Hydroxy 34.5 ng/mL Normal [facility] Comment on above: Result Comment: Inte rpretive Values Based on Total 25(OH) Vitamin D: Deficient <20 ng/mL Insufficient 20 - <30 ng/mL Sufficient 30-100 ng/mL Performed By: #### T SH, PSA, CBC, ANEU, URIC, CMP, LIPID, FT4, VIDH, A1C, GFR, ADIFF #### [address] [address] #### PTH #### [address] [address] RENINon 10-28-2023 Renin Activity 1.724 ng/mL/hr Normal 0.167-5.380 [facility] ([place]) Comment on above: Result Comment: This test was developed and its performance characteristics determined by [facility]. It has not been cleared or approved by the Food and Drug Administration. Performed At: [address] [id number] Felipe Pickens MD Ph:[phone] Performed By: #### [id number] #### [address] [address] .Auto Diffon 10-22-2023 Basophil, Absolute 0.0 10 3/mcL Normal 0.0-0.2 [facility] ([place]) Comment on above: Performed By: #### M ALBR #### [address] [address] Basophils/100 WBC (Bld) 0.6 % Normal 0.0-2.5 [facility] ([place]) Comment on above: Performed By: #### M ALBR #### [address] [address] Eosinophil, Absolute 0.1 10 3/mcL Normal 0.0-0.4 [facility] ([place]) Comment on above: Performed By: #### M ALBR #### [address] [address] Eosinophils/100 WBC (Bld) 0.8 % Normal 0.0-7.0 [facility] ([place]) Comment on above: Performed By: #### M ALBR #### [address] [address] Lymphocyte, Absolute 1.9 10 3/mcL Normal 0.8-3.9 [facility] ([place]) Comment on above: Performed By: #### M ALBR #### [address] [address] Lymphocytes/100 WBC (Bld) 29.9 % Normal 10.0-50.0 [facility] ([place]) Comment on above: Performed By: #### M ALBR #### [address] [address] Monocyte, Absolute 0.4 10 3/mcL Normal 0.2-1.0 [facility] ([place]) Comment on above: Performed By: #### M ALBR #### [address] [address] Monocytes/100 WBC (Bld) 5.9 % Normal 1.7-13.0 [facility] ([place]) Comment on above: Performed By: #### M ALBR #### [address] [address] Neutrophils/100 WBC (Bld) 62.8 % Normal 37.0-80.0 [facility] ([place]) Comment on above: Performed By: #### M ALBR #### [address] [address] .GFRon 10-22-2023 GFR Non- 45 ml/min/1.73sqm Normal [facility] ([place]) Comment on above: Result Comment: GFR Population mean for , Non- Americans Ages 20-29 = 116 mL/min/1.73 sq.m. Ages 30-39 = 107 mL/min/1.73 sq.m. Ages 40-49 = 99 mL/min/1.73 sq.m. Ages 50-59 = 93 mL/min/1.73 sq.m. Ages 60-69 = 85 mL/min/1.73 sq.m. Ages 70+ = 75 mL/min/1.73 sq.m. Chronic Kidney Disease: Less than 60 mL/min/1.73 square meters End Stage Renal Disease: Less than 15 mL/min/1.73 square meters Performed By: #### T FTEST, BTESTO, PSA, SHBG2 #### [address] [id number] #### PROL, LH, E2, FSH #### [address] [address] GFR 55 ml/min/1.73sqm Normal [facility] ([place]) Comment on above: Result Comment: GFR Population mean for , Non- Americans Ages 20-29 = 116 mL/min/1.73 sq.m. Ages 30-39 = 107 mL/min/1.73 sq.m. Ages 40-49 = 99 mL/min/1.73 sq.m. Ages 50-59 = 93 mL/min/1.73 sq.m. Ages 60-69 = 85 mL/min/1.73 sq.m. Ages 70+ = 75 mL/min/1.73 sq.m. Chronic Kidney Disease: Less than 60 mL/min/1.73 square meters End Stage Renal Disease: Less than 15 mL/min/1.73 square meters Performed By: #### T FTEST, BTESTO, PSA, SHBG2 #### [address] [address] #### PROL, LH, E2, FSH #### [address] [address] .NEUABSon 10-22-2023 Neutrophil, Absolute 4.0 10 3/mcL Normal 2.9-6.2 [facility] ([place]) Comment on above: Performed By: #### T FTEST, BTESTO, PSA, SHBG2 #### [address] [address] #### PROL, LH, E2, FSH #### [address] [address] A1C 10-22-2023 HbA1c (Bld) [Mass fraction] 5.6 % Normal 4.3-6.4 [facility] ([place]) Comment on above: Performed By: #### T FTEST, BTESTO, PSA, SHBG2 #### [address] [address] #### PROL, LH, E2, FSH #### [address] [address] CBC 10-22-2023 Erythrocyte distribution width (RBC) [Ratio] 15.0 % High 11.5-14.5 [facility] ([place] Comment on above: Performed By: #### M ALBR #### [address] [address] Hematocrit (Bld) [Volume fraction] 45.4 % Normal 42.0-52.0 [facility] ([place]) Comment on above: Performed By: #### M ALBR #### [address] [address] Hgb 15.8 G/dL Normal 14.0-18.0 [facility] ([place]) Comment on above: Performed By: #### M ALBR #### [address] [address] [address] MCH (RBC) [Entitic mass] 30.6 pg Normal 27.0-31.2 [facility] ([place] Comment on above: Performed By: #### M ALBR #### [address] [address] MCHC 34.8 G/dL Normal 31.8-35.4 [facility] ([place] Comment on above: Performed By: #### M ALBR #### [place] [id number] MCV (RBC) [Entitic vol] 87.9 fL Normal 80.0-94.0 [facility] ([place] Comment on above: Performed By: #### M ALBR #### [address] [address] Platelet 214 10 3/mcL Normal 130-400 [facility] ([place] Comment on above: Performed By: #### M ALBR #### [address] [address] Platelet mean volume (Bld) [Entitic vol] 7.9 fL Normal 7.4-10.4 [facility] ([place] Comment on above: Performed By: #### M ALBR #### [address] [address] RBC 5.17 10 6/mcL Normal 4.04-6.13 [facility] ([place] Comment on above: Performed By: #### M ALBR #### [address] [address] WBC 6.3 10 3/mcL Normal 4.6-10.8 [facility] ([place] Comment on above: Performed By: #### M ALBR #### [address] [address] [facility] Albumin Level 3.6 G/dL Normal 3.5-5.0 [facility] ([place] Comment on above: Performed By: #### T FTEST, BTESTO, PSA, SHBG2 #### [address] [address] #### PROL, LH, E2, FSH #### [address] [address] Albumin/Globulin [Mass ratio] 1.1 {ratio} Normal 1.1-2.5 [facility] ([place] Comment on above: Performed By: #### T FTEST, BTESTO, PSA, SHBG2 #### [address] [address] #### PROL, LH, E2, FSH #### [address] [address] ALP [Catalytic activity/Vol] 88 U/L Normal 40-135 [facility] ([place] Comment on above: Performed By: #### T FTEST, BTESTO, PSA, SHBG2 #### [address] [address] #### PROL, LH, E2, FSH #### [address] [address] ALT [Catalytic activity/Vol] 27 U/L Normal 16-63 [facility] ([place] Comment on above: Performed By: #### T FTEST, BTESTO, PSA, SHBG2 #### [place] [address] #### PROL, LH, E2, FSH #### [place] [address] AST [Catalytic activity/Vol] 16 U/L Normal 10-40 [facility] ([place] Comment on above: Performed By: #### T FTEST, BTESTO, PSA, SHBG2 #### [place] [address] #### PROL, LH, E2, FSH #### [place] [address] Bili Total 0.8 mg/dL Normal 0.2-1.0 [facility] ([place] Comment on above: Result Comment: Use of this assay is not recommended for patients undergoing treatment with eltrombopag due to the potential for falsely elevated results. Performed By: #### T FTEST, BTESTO, PSA, SHBG2 #### [place] [address] #### PROL, LH, E2, FSH #### [place] [address] BUN/Creatinine Ratio 15 ratio Normal 7-27 [facility] ([place] Comment on above: Performed By: #### T FTEST, BTESTO, PSA, SHBG2 #### [place] [id number] #### PROL, LH, E2, FSH #### [address] [address] Calcium [Mass/Vol] 8.6 mg/dL Normal 8.4-10.2 [facility] ([place] Comment on above: Performed By: #### T FTEST, BTESTO, PSA, SHBG2 #### [place] [address] #### PROL, LH, E2, FSH #### [place] [address] Chloride [Moles/Vol] 109 mmol/L High 98-107 [facility] ([place] Comment on above: Performed By: #### T FTEST, BTESTO, PSA, SHBG2 #### [place] [address] #### PROL, LH, E2, FSH #### [place] [address] CO2 [Moles/Vol] 22 mmol/L Normal 22-29 [facility] ([place] Comment on above: Performed By: #### T FTEST, BTESTO, PSA, SHBG2 #### [place] [address] #### PROL, LH, E2, FSH #### [place] [address] Creatinine [Mass/Vol] 1.63 mg/dL High 0.70-1.30 [facility] ([place] Comment on above: Performed By: #### T FTEST, BTESTO, PSA, SHBG2 #### [place] [address] #### PROL, LH, E2, FSH #### [place] [address] Electrolyte Balance 11.0 mEq/L Normal 4.0-15.0 [facility] ([place] Comment on above: Performed By: #### T FTEST, BTESTO, PSA, SHBG2 #### [place] [address] #### PROL, LH, E2, FSH #### [address] [address] Globulin 3.2 G/dL Normal [facility] ([place] Comment on above: Performed By: #### T FTEST, BTESTO, PSA, SHBG2 #### [place] [address] #### PROL, LH, E2, FSH #### [address] [address] Glucose [Mass/Vol] 106 mg/dL High 70-105 [facility] ([place] Comment on above: Performed By: #### T FTEST, BTESTO, PSA, SHBG2 #### [place] [address] #### PROL, LH, E2, FSH #### [place] [id number] Potassium [Moles/Vol] 4.6 mmol/L Normal 3.5-5.1 [facility] ([place] Comment on above: Performed By: #### T FTEST, BTESTO, PSA, SHBG2 #### [place] [address] #### PROL, LH, E2, FSH #### [address] [address] Sodium [Moles/Vol] 142 mmol/L Normal 136-145 [facility] ([place] Comment on above: Performed By: #### T FTEST, BTESTO, PSA, SHBG2 #### [place] [address] #### PROL, LH, E2, FSH #### [address] [address] Total Protein 6.8 G/dL Normal 6.4-8.2 [facility] ([place] Comment on above: Performed By: #### T FTEST, BTESTO, PSA, SHBG2 #### [place] [address] #### PROL, LH, E2, FSH #### [place] [address] Urea nitrogen [Mass/Vol] 24 mg/dL High 7-18 [facility] ([place] Comment on above: Performed By: #### T FTEST, BTESTO, PSA, SHBG2 #### [address] [address] #### PROL, LH, E2, FSH #### [place] [address] FEon 10-22-2023 Iron [Mass/Vol] 166 ug/dL Normal 65-175 [facility] ([place] Comment on above: Performed By: #### T FTEST, BTESTO, PSA, SHBG2 #### [address] [address] #### PROL, LH, E2, FSH #### [place] [address] IBCon 10-22-2023 TIBC 426 mcg/dL Normal 250-450 [facility] ([place] Comment on above: Performed By: #### T FTEST, BTESTO, PSA, SHBG2 #### [place] [address] #### PROL, LH, E2, FSH #### [place] [address] LABORATORYOrdered By: SYSTEM SYSTEM on 10-22-2023 25-hydroxyvitamin D3 [Mass/Vol] 28.2 ng/mL Invalid Interpretation Code AO ADM SS Comment on above: Interpretive Data: I nterpretive Values Based on Total 25(OH) Vitamin D: Deficient <20 ng/mL Insufficient 20 - <30 ng/mL Sufficient 30-100 ng/mL Albumin BCP dye [Mass/Vol] 3.6 G/dL Normal 3.5 - 5.0 G/dL AO ADM SS Albumin/Globulin [Mass ratio] 1.1 {ratio} Normal 1.1 - 2.5 ratio AO ADM SS ALP [Catalytic activity/Vol] 88 U/L Normal 40 - 135 U/L AO ADM SS ALT With P-5'-P [Catalytic activity/Vol] 27 U/L Normal 16 - 63 U/L AO ADM SS AST With P-5'-P [Catalytic activity/Vol] 16 U/L Normal 10 - 40 U/L AO ADM SS Basophil, Absolute 0.0 103/mcL Normal 0.0 - 0.2 10^3/mcL AO Workflow SS Basophils/100 WBC (Bld) 0.6 % Normal 0.0 - 2.5 % AO Workflow SS Bilirubin [Mass/Vol] 0.8 mg/dL Normal 0.2 - 1 .0 mg/dL AO ADM SS Comment on above: Interpretive Data: U se of this assay is not recommended for patients undergoing treatment with eltrombopag due to the potential for falsely elevated results. Calcium [Mass/Vol] 8.6 mg/dL Normal 8.4 - 10. 2 mg/dL AO ADM SS Chloride [Moles/Vol] 109 mmol/L High 98 - 10 7 mmol/L AO ADM SS CO2 [Moles/Vol] 22 mmol/L Normal 22 - 29 mmol/L AO ADM SS Creatinine [Mass/Vol] 1.63 mg/dL High 0.70 - 1.30 mg/dL AO ADM SS Electrolyte Balance 11.0 mEq/L Normal 4.0 - 15 .0 mEq/L AO ADM SS Eosinophil, Absolute 0.1 103/mcL Normal 0.0 - 0 .4 10^3/mcL AO Workflow SS Eosinophils/100 WBC (Bld) 0.8 % Normal 0.0 - 7.0 % AO Workflow SS Erythrocyte distribution width (RBC) [Ratio] 15.0 % High 11.5 - 14.5 % AO Workflow SS GFR/1.73 sq M.predicted among blacks MDRD (S/P/Bld) [Vol rate/Area] 55 ml/min/1.73sqm Invalid Interpretation Code AO Chemistry S Comment on above: Interpretive Data: GFR Population mean for , Non- Americans Ages 20-29 = 116 mL/min/1.73 sq.m. Ages 30-39 = 107 mL/min/1.73 sq.m. Ages 40-49 = 99 mL/min/1.73 sq.m. Ages 50-59 = 93 mL/min/1.73 sq.m. Ages 60-69 = 85 mL/min/1.73 sq.m. Ages 70+ = 75 mL/min/1.73 sq.m. Chronic Kidney Disease: Less than 60 mL/min/1.73 square meters End Stage Renal Disease: Less than 15 mL/min/1.73 square meters GFR/1.73 sq M.predicted among non-blacks MDRD (S/P/Bld) [Vol rate/Area] 45 ml/min/1.73sqm Invalid Interpretation Code AO Chemistry S Comment on above: Interpretive Data: GFR Population mean for , Non- Americans Ages 20-29 = 116 mL/min/1.73 sq.m. Ages 30-39 = 107 mL/min/1.73 sq.m. Ages 40-49 = 99 mL/min/1.73 sq.m. Ages 50-59 = 93 mL/min/1.73 sq.m. Ages 60-69 = 85 mL/min/1.73 sq.m. Ages 70+ = 75 mL/min/1.73 sq.m. Chronic Kidney Disease: Less than 60 mL/min/1.73 square meters End Stage Renal Disease: Less than 15 mL/min/1.73 square meters Globulin 3.2 G/dL Invalid Interpretation Code AO ADM SS Glucose [Mass/Vol] 106 mg/dL High 70 - 105 mg/dL AO ADM SS HbA1c (Bld) [Mass fraction] 5.6 % Normal 4.3 - 6.4 % AO ADM SS Hematocrit (Bld) [Volume fraction] 45.4 % Normal 42.0 - 52.0 % AO Workflow SS Hemoglobin (Bld) [Mass/Vol] 15.8 G/dL Normal 14.0 - 18.0 G/dL AO Workflow SS Iron [Mass/Vol] 166 ug/dL Normal 65 - 175 mcg/dL AO ADM SS Iron binding capacity [Mass/Vol] 426 mcg/dL Normal 250 - 450 mcg/dL AO ADM SS Lymphocyte, Absolute 1.9 103/mcL Normal 0.8 - 3 .9 10^3/mcL AO Workflow SS Lymphocytes/100 WBC (Bld) 29.9 % Normal 10.0 - 50.0 % AO Workflow SS MCH (RBC) [Entitic mass] 30.6 pg Normal 27.0 - 31.2 pg AO Workflow SS MCHC 34.8 G/dL Normal 31.8 - 35.4 G/dL AO Workflow SS MCV (RBC) [Entitic vol] 87.9 fL Normal 80.0 - 94.0 fL AO Workflow SS Monocyte, Absolute 0.4 103/mcL Normal 0.2 - 1.0 10^3/mcL AO Workflow SS Monocytes/100 WBC (Bld) 5.9 % Normal 1.7 - 13.0 % AO Workflow SS Neutrophil, Absolute 4.0 103/mcL Normal 2.9 - 6 .2 10^3/mcL AO Workflow SS Neutrophils/100 WBC (Bld) 62.8 % Normal 37.0 - 80.0 % AO Workflow SS Parathyrin.intact [Mass/Vol] 229.5 pg/mL High 18.5 - 88.0 pg/mL AH ADM SS Platelet mean volume (Bld) [Entitic vol] 7.9 fL Normal 7.4 - 10.4 fL AO Workflow SS Platelets (Bld) [#/Vol] 214 103/mcL Normal 130 - 400 10^3/mcL AO Workflow SS Potassium [Moles/Vol] 4.6 mmol/L Normal 3.5 - 5.1 mmol/L AO ADM SS Prostate specific Ag [Mass/Vol] 0.42 ng/mL Normal 0.00 - 4.00 ng/mL AO ADM SS Protein [Mass/Vol] 6.8 G/dL Normal 6.4 - 8.2 G/dL AO ADM SS RBC (Bld) [#/Vol] 5.17 106/mcL Normal 4.04 - 6.1 3 10^6/mcL AO Workflow SS Sodium [Moles/Vol] 142 mmol/L Normal 136 - 145 mmol/L AO ADM SS Urea nitrogen [Mass/Vol] 24 mg/dL High 7 - 18 mg/dL AO ADM SS Urea nitrogen/Creatinine [Mass ratio] 15 ratio Normal 7 - 27 ratio AO ADM SS WBC (Bld) [#/Vol] 6.3 103/mcL Normal 4.6 - 10.8 10^3/mcL AO Workflow SS LABORATORYOrdered By: Jovi Valdivia on 10-22-2023 Albumin DL <= 20 mg/L (U) [Mass/Vol] [address] mcg/dL Invalid Interpretation Code AO ADM SS Albumin/Creatinine DL <= 20 mg/L (U) [Mass ratio] 175 mcg/mg High 0 - 30 mcg/mg AO ADM SS Cholesterol [Mass/Vol] 151 mg/dL Normal 0 - 2 00 mg/dL AO ADM SS Comment on above: Interpretive Data: C holesterol Reference Interval: Less than 200 Desirable 200-239 Borderline high risk 240 and above High risk Cholesterol in HDL [Mass/Vol] 37 mg/dL Low 40 - 60 mg/dL AO ADM SS Cholesterol in LDL [Mass/Vol] 74 mg/dL Normal 0 - 130 mg/dL AO ADM SS Creatinine (U) [Mass/Vol] 175.1 mg/dL Normal 39.0 - 259.0 mg/dL AO ADM SS Triglyceride [Mass/Vol] 198 mg/dL High 0 - 150 mg/dL AO ADM SS Comment on above: Interpretive Data: T riglyceride Reference Interval: Less than 150 Normal 150-199 Borderline high risk 200-499 High risk 500 or higher Very high risk LIPIDon 10-22-2023 Cholesterol [Mass/Vol] 151 mg/dL Normal 0-200 [facility] ([place] Comment on above: Result Comment: Chol esterol Reference Interval: Less than 200 Desirable 200-239 Borderline high risk 240 and above High risk Performed By: #### T FTEST, BTESTO, PSA, SHBG2 #### [address] [address] #### PROL, LH, E2, FSH #### [address] [address] Cholesterol in HDL [Mass/Vol] 37 mg/dL Low 40-60 [facility] ([place] Comment on above: Performed By: #### T FTEST, BTESTO, PSA, SHBG2 #### [address] [address] #### PROL, LH, E2, FSH #### [address] [address] Cholesterol in LDL [Mass/Vol] 74 mg/dL Normal 0-130 [facility] ([place] Comment on above: Performed By: #### T FTEST, BTESTO, PSA, SHBG2 #### [address] [address] #### PROL, LH, E2, FSH #### [address] [address] Triglyceride [Mass/Vol] 198 mg/dL High 0-150 [facility] ([place] Comment on above: Result Comment: Trig lyceride Reference Interval: Less than 150 Normal 150-199 Borderline high risk 200-499 High risk 500 or higher Very high risk Performed By: #### T FTEST, BTESTO, PSA, SHBG2 #### [place] [address] #### PROL, LH, E2, FSH #### [place] [id number] MALBRon 10-22-2023 U Creatinine 175.1 mg/dL Normal 39.0-259.0 [facility] ([place] Comment on above: Performed By: #### M ALBR #### [address] [address] U Microalb [address] mcg/dL Normal [facility] ([place] Comment on above: Performed By: #### M ALBR #### [place] [address] U Ratio Alb/Cre 175 mcg/mg High 0-30 [facility] ([place] Comment on above: Performed By: #### M ALBR #### [place] [address] PSAon 10-22-2023 Prostate Specific Antigen 0.42 ng/mL Normal 0.00-4.00 [facility] ([place] Comment on above: Performed By: #### T FTEST, BTESTO, PSA, SHBG2 #### [place] [address] #### PROL, LH, E2, FSH #### [address] [address] PTHon 10-22-2023 PTH, Intact 229.5 pg/mL High 18.5-88.0 [facility] ([place] Comment on above: Performed By: #### T FTEST, BTESTO, PSA, SHBG2 #### [place] [address] #### PROL, LH, E2, FSH #### [address] [address] VIDHon 10-22-2023 Vit. D 25-Hydroxy 28.2 ng/mL Normal [facility] ([place] Comment on above: Result Comment: Inte rpretive Values Based on Total 25(OH) Vitamin D: Deficient <20 ng/mL Insufficient 20 - <30 ng/mL Sufficient 30-100 ng/mL Performed By: #### T FTEST, BTESTO, PSA, SHBG2 #### [address] [address] #### PROL, LH, E2, FSH #### [place] [address] TFTESTon 05-12-2023 Free Testosterone 13.8 ng/dL Normal 4.26-16.4 [facility] ([place]) Comment on above: Result Comment: ---- ADDITIONAL INFORMATION This test was developed and its performance characteristics determined by [facility] in a manner consistent with CLIA requirements. This test has not been cleared or approved by the U.S. Food and Drug Administration. Performed By: #### T FTEST, BTESTO, PSA, SHBG2 #### [address] [address] #### PROL, LH, E2, FSH #### [place] [address] Testoster Tot 388 ng/dL Normal 240-950 [facility] ([place]) Comment on above: Result Comment: ---- ADDITIONAL INFORMATION Testing performed by Liquid Chromatography-Tandem Mass Spectrometry (LC-MS/MS). This test was developed and its performance characteristics determined by [facility] in a manner consistent with CLIA requirements. This test has not been cleared or approved by the U.S. Food and Drug Administration. Test Performed by: [facility] [address] [place] [address] Curtain Fitter: Andres Tinajero M.D. Ph.D.; CLIA# [id number] Performed By: #### T FTEST, BTESTO, PSA, SHBG2 #### [address] [address] #### PROL, LH, E2, FSH #### [address] [address] BTESTOon 05-01-2023 Albumin Lvl 4.3 G/dL Normal 3.9-4.9 [facility] ([place]) Comment on above: Result Comment: Perf ormed By: [place] [address] Curtain Fitter: Ke Lozada III, M.D. CLIA#: [id number] Performed By: #### T FTEST, BTESTO, PSA, SHBG2 #### [place] [address] #### PROL, LH, E2, FSH #### [place] [address] Sex Hormone Binding Globulin Panel 24 nmol/L Normal 14-82 [facility] ([place] Comment on above: Result Comment: Perf ormed By: [place] [address] Curtain Fitter: Ke Lozada III, M.D. CLIA#: [id number] Performed By: #### T FTEST, BTESTO, PSA, SHBG2 #### [place] [address] #### PROL, LH, E2, FSH #### [place] [address] Testo Bioavailable 212.5 ng/dL Normal 105.0-324.0 [facility] ([place] Comment on above: Result Comment: Perf ormed By: [place] [address] Curtain Fitter: Ke Lozada III, M.D. CLIA#: [id number] Performed By: #### T FTEST, BTESTO, PSA, SHBG2 #### [address] [address] #### PROL, LH, E2, FSH #### [address] [address] Testo Percent Free 2.2 % Normal 1.1-2.6 [facility] ([place]) Comment on above: Result Comment: Perf ormed By: [place] [id number] Curtain Fitter: Ke Lozada III, M.D. CLIA#: [id number] Performed By: #### T FTEST, BTESTO, PSA, SHBG2 #### [place] [address] #### PROL, LH, E2, FSH #### [address] [address] Testosterone [Mass/Vol] 361 ng/dL Normal 193-824 [facility] ([place]) Comment on above: Result Comment: A te stosterone level in the 193-320 ng/dL range with associated clinical symptoms is considered low and may indicate hypogonadism (from [facility] 2010 363:123-135). Results >320 ng/dL are considered normal. Performed By: [place] [id number] Curtain Fitter: Ke Lozada III, M.D. CLIA#: [id number] Performed By: #### T FTEST, BTESTO, PSA, SHBG2 #### [place] [address] #### PROL, LH, E2, FSH #### [address] [address] Testosterone, Free Calculation 78.8 pg/mL Normal 38.0-120.0 [facility] ([place] Comment on above: Result Comment: Perf ormed By: [place] [id number] Curtain Fitter: Ke Lozada III, M.D. CLIA#: [id number] Performed By: #### T FTEST, BTESTO, PSA, SHBG2 #### [place] [address] #### PROL, LH, E2, FSH #### [place] [address] HYIM6oi 05-01-2023 Sex Hormone Binding Globulin Panel 23 nmol/L Normal 14-82 [facility] ([place] Comment on above: Result Comment: Perf ormed By: [facility] [employer] [address] [place] [address] Curtain Fitter: Courtney Daniel III#: [id number] Performed By: #### T FTEST, BTESTO, PSA, SHBG2 #### [place] [address] #### PROL, LH, E2, FSH #### [place] [address] E2on 04-30-2023 Estradiol Level 28.62 pg/mL Normal 0.00-39.80 [facility] ([place] Comment on above: Result Comment: No te - New Reference Range in effect 20 Adult Female E2 Reference Ranges: Follicular phase 19.5 - 144.2 pg/mL Midcycle 63.9 - 356.7 pg/mL Luteal phase 55.8 - 214.2 pg/mL Post menopausal 0 - 33.2 pg/mL Performed By: #### T FTEST, BTESTO, PSA, SHBG2 #### [place] [address] #### PROL, LH, E2, FSH #### [place] [address] FSHon 04-30-2023 FSH 6.1 mIU/mL Normal 1.4-18.1 [facility] ([place] Comment on above: Result Comment: Adul t Female FSH Reference Ranges (06/05/99): Follicular phase 2.5 - 10.2 mIU/mL Midcycle phase 3.4 - 33.4 mIU/mL Luteal phase 1.5 - 9.1 mIU/mL Post menopausal 23.0 -116.3 mIU/mL Adult Male: 1.4 - 18.1 mIU/mL Performed By: #### T FTEST, BTESTO, PSA, SHBG2 #### [place] [address] [place], [place] [address] #### PROL, LH, E2, FSH #### [address] [address] LABORATORYOrdered By: DAVID FERGUSON CONTRIBUTOR_SYSTEM on 04-30-2023 Albumin Lvl 4.3 G/dL Invalid Interpretation Code AO Sendouts SS Comment on above: Result Comment: Perf ormed By: [place] [address] Curtain Fitter: Ke Lozada III, M.D. CLIA#: [id number] Sex Hormone Binding Globulin Panel 24 nmol/L Invalid Interpretation Code AO Sendouts SS Comment on above: Result Comment: Perf ormed By: [place] [address] Curtain Fitter: Ke Lozada III, M.D. CLIA#: [id number] Sex Hormone Binding Globulin Panel 23 nmol/L Invalid Interpretation Code AO Sendouts Comment on above: Result Comment: Perf ormed By: [place] [address] Curtain Fitter: Ke Lozada III, M.D. CLIA#: [id number] Testo Bioavailable 212.5 ng/dL Invalid Interpretation Code AO Sendouts SS Comment on above: Result Comment: Perf ormed By: [place] [address] Curtain Fitter: Ke Lozada III, M.D. CLIA#: [id number] Testo Percent Free 2.2 1 Invalid Interpretation Code AO Sendouts SS Comment on above: Result Comment: Perf ormed By: [place] [address] Curtain Fitter: Ke Lozada III, M.D. CLIA#: [id number] Testosterone [Mass/Vol] 361 ng/dL Invalid Interpretation Code AO Sendouts SS Comment on above: Result Comment: A te stosterone level in the 193-320 ng/dL range with associated clinical symptoms is considered low and may indicate hypogonadism (from [facility] 2010 363:123-135). Results >320 ng/dL are considered normal. Performed By: [facility] [employer] [address] [employer] [place] [id number] Curtain Fitter: Ke Lozada III, M.D. CLIA#: [id number] Testosterone, Free Calculation 78.8 pg/mL Invalid Interpretation Code [facility] Comment on above: Result Comment: Perf ormed By: [facility] [employer] [address] [employer] [place] [id number] Curtain Fitter: Ke Lozada III, M.D. CLIA#: [id number] LABORATORYOrdered By: SYSTEM SYSTEM on 04-30-2023 E2 [Mass/Vol] 28.62 pg/mL Invalid Interpretation Code 0.00 - 39.80 pg/mL ADM Comment on above: Interpretive Data: * *Note - New Reference Range in effect 20 Adult Female E2 Reference Ranges: Follicular phase 19.5 - 144.2 pg/mL Midcycle 63.9 - 356.7 pg/mL Luteal phase 55.8 - 214.2 pg/mL Post menopausal 0 - 33.2 pg/mL Follitropin Qn 6.1 m[IU]/mL Invalid Interpretation Code 1.4 - 18.1 mIU/mL ADM Comment on above: Interpretive Data: A dult Female FSH Reference Ranges (06/05/99): Follicular phase 2.5 - 10.2 mIU/mL Midcycle phase 3.4 - 33.4 mIU/mL Luteal phase 1.5 - 9.1 mIU/mL Post menopausal 23.0 -116.3 mIU/mL Adult Male: 1.4 - 18.1 mIU/mL Lutropin Qn 10.5 m[IU]/mL Invalid Interpretation Code 1.5 - 9.3 mIU/mL ADM Comment on above: Interpretive Data: * *Note - New Reference Range in effect 20 Adult Female LH Reference Ranges: Follicular phase 1.9 - 12.5 mIU/mL Midcycle phase 8.7 - 76.3 mIU/mL Luteal phase 0.5 - 16.9 mIU/mL Post menopausal 5.0 - 55.2 mIU/mL Prolactin [Mass/Vol] 5.7 ng/mL Invalid Interpretation Code 2.0 - 18.0 ng/mL ADM Prostate specific Ag [Mass/Vol] 0.51 ng/mL Invalid Interpretation Code 0.00 - 4.00 ng/mL AO ADM SS LHon 04-30-2023 LH 10.5 mIU/mL High 1.5-9.3 [facility] ([place] Comment on above: Result Comment: No te - New Reference Range in effect 20 Adult Female LH Reference Ranges: Follicular phase 1.9 - 12.5 mIU/mL Midcycle phase 8.7 - 76.3 mIU/mL Luteal phase 0.5 - 16.9 mIU/mL Post menopausal 5.0 - 55.2 mIU/mL Performed By: #### T FTEST, BTESTO, PSA, SHBG2 #### [place] [address] #### PROL, LH, E2, FSH #### [place] [address] PROLon 04-30-2023 Prolactin 5.7 ng/mL Normal 2.0-18.0 [facility] ([place] Comment on above: Performed By: #### T FTEST, BTESTO, PSA, SHBG2 #### [place] [address] #### PROL, LH, E2, FSH #### [place] [address] PSAon 04-30-2023 Prostate Specific Antigen 0.51 ng/mL Normal 0.00-4.00 [facility] ([place] Comment on above: Performed By: #### T FTEST, BTESTO, PSA, SHBG2 #### [place] [address] #### PROL, LH, E2, FSH #### [place] [address] .Auto Diffon 04-23-2023 Basophil, Absolute 0.0 10 3/mcL Normal 0.0-0.2 [facility] ([place] Comment on above: Performed By: #### T FTEST, BTESTO, PSA, SHBG2 #### [place] [address] #### PROL, LH, E2, FSH #### [address] [address] Basophils/100 WBC (Bld) 0.4 % Normal 0.0-2.5 [facility] ([place]) Comment on above: Performed By: #### T FTEST, BTESTO, PSA, SHBG2 #### [place] [address] #### PROL, LH, E2, FSH #### [address] [address] Eosinophil, Absolute 0.1 10 3/mcL Normal 0.0-0.4 [facility] ([place]) Comment on above: Performed By: #### T FTEST, BTESTO, PSA, SHBG2 #### [place] [address] #### PROL, LH, E2, FSH #### [address] [address] Eosinophils/100 WBC (Bld) 1.0 % Normal 0.0-7.0 [facility] ([place]) Comment on above: Performed By: #### T FTEST, BTESTO, PSA, SHBG2 #### [place] [address] #### PROL, LH, E2, FSH #### [address] [address] Lymphocyte, Absolute 1.8 10 3/mcL Normal 0.8-3.9 [facility] ([place]) Comment on above: Performed By: #### T FTEST, BTESTO, PSA, SHBG2 #### [place] [address] #### PROL, LH, E2, FSH #### [address] [address] Lymphocytes/100 WBC (Bld) 30.4 % Normal 10.0-50.0 [facility] ([place]) Comment on above: Performed By: #### T FTEST, BTESTO, PSA, SHBG2 #### [address] [address] #### PROL, LH, E2, FSH #### [address] [address] Monocyte, Absolute 0.3 10 3/mcL Normal 0.2-1.0 [facility] ([place] Comment on above: Performed By: #### T FTEST, BTESTO, PSA, SHBG2 #### [place] [address] #### PROL, LH, E2, FSH #### [address] [address] Monocytes/100 WBC (Bld) 5.2 % Normal 1.7-13.0 [facility] ([place]) Comment on above: Performed By: #### T FTEST, BTESTO, PSA, SHBG2 #### [place] [address] #### PROL, LH, E2, FSH #### [address] [address] Neutrophils/100 WBC (Bld) 63.0 % Normal 37.0-80.0 [facility] ([place]) Comment on above: Performed By: #### T FTEST, BTESTO, PSA, SHBG2 #### [address] [address] #### PROL, LH, E2, FSH #### [address] [address] .GFRon 04-23-2023 GFR 63 ml/min/1.73sqm Normal [facility] ([place]) Comment on above: Result Comment: GFR Population mean for , Non- Americans Ages 20-29 = 116 mL/min/1.73 sq.m. Ages 30-39 = 107 mL/min/1.73 sq.m. Ages 40-49 = 99 mL/min/1.73 sq.m. Ages 50-59 = 93 mL/min/1.73 sq.m. Ages 60-69 = 85 mL/min/1.73 sq.m. Ages 70+ = 75 mL/min/1.73 sq.m. Chronic Kidney Disease: Less than 60 mL/min/1.73 square meters End Stage Renal Disease: Less than 15 mL/min/1.73 square meters Performed By: #### M ALBR #### [address] [address] GFR Non- 52 ml/min/1.73sqm Normal [facility] ([place]) Comment on above: Result Comment: GFR Population mean for , Non- Americans Ages 20-29 = 116 mL/min/1.73 sq.m. Ages 30-39 = 107 mL/min/1.73 sq.m. Ages 40-49 = 99 mL/min/1.73 sq.m. Ages 50-59 = 93 mL/min/1.73 sq.m. Ages 60-69 = 85 mL/min/1.73 sq.m. Ages 70+ = 75 mL/min/1.73 sq.m. Chronic Kidney Disease: Less than 60 mL/min/1.73 square meters End Stage Renal Disease: Less than 15 mL/min/1.73 square meters Performed By: #### M ALBR #### [address] [address] .NEUABSon 04-23-2023 Neutrophil, Absolute 3.8 10 3/mcL Normal 2.9-6.2 [facility] ([place]) Comment on above: Performed By: #### T FTEST, BTESTO, PSA, SHBG2 #### [address] [address] #### PROL, LH, E2, FSH #### [address] [address] A1Con 04-23-2023 HbA1c (Bld) [Mass fraction] 5.8 % Normal 4.3-6.4 [facility] ([place]) Comment on above: Performed By: #### M ALBR #### [address] [address] CBCon 04-23-2023 Erythrocyte distribution width (RBC) [Ratio] 17.4 % High 11.5-14.5 [facility] ([place] Comment on above: Performed By: #### T FTEST, BTESTO, PSA, SHBG2 #### [place] [address] #### PROL, LH, E2, FSH #### [place] [address] Hematocrit (Bld) [Volume fraction] 40.5 % Low 42.0-52.0 [facility] ([place] Comment on above: Performed By: #### T FTEST, BTESTO, PSA, SHBG2 #### [place] [address] #### PROL, LH, E2, FSH #### [place] [address] Hgb 13.0 G/dL Low 14.0-18.0 [facility] ([place] Comment on above: Performed By: #### T FTEST, BTESTO, PSA, SHBG2 #### [place] [address] #### PROL, LH, E2, FSH #### [place] [address] MCH (RBC) [Entitic mass] 25.2 pg Low 27.0-31.2 [facility] ([place] Comment on above: Performed By: #### T FTEST, BTESTO, PSA, SHBG2 #### [place] [address] #### PROL, LH, E2, FSH #### [place] [address] MCHC 32.1 G/dL Normal 31.8-35.4 [facility] ([place] Comment on above: Performed By: #### T FTEST, BTESTO, PSA, SHBG2 #### [place] [address] #### PROL, LH, E2, FSH #### [place] [address] MCV (RBC) [Entitic vol] 78.5 fL Low 80.0-94.0 [facility] ([place] Comment on above: Performed By: #### T FTEST, BTESTO, PSA, SHBG2 #### [place] [address] #### PROL, LH, E2, FSH #### [place] [address] Platelet 220 10 3/mcL Normal 130-400 [facility] ([place] Comment on above: Performed By: #### T FTEST, BTESTO, PSA, SHBG2 #### [place] [address] #### PROL, LH, E2, FSH #### [place] [address] Platelet mean volume (Bld) [Entitic vol] 8.0 fL Normal 7.4-10.4 [facility] ([place] Comment on above: Performed By: #### T FTEST, BTESTO, PSA, SHBG2 #### [place] [address] #### PROL, LH, E2, FSH #### [place] [address] RBC 5.17 10 6/mcL Normal 4.04-6.13 [facility] ([place] Comment on above: Performed By: #### T FTEST, BTESTO, PSA, SHBG2 #### [place] [address] #### PROL, LH, E2, FSH #### [place] [address] WBC 6.0 10 3/mcL Normal 4.6-10.8 [facility] ([place] Comment on above: Performed By: #### T FTEST, BTESTO, PSA, SHBG2 #### [place] [address] #### PROL, LH, E2, FSH #### [place] [address] CMPon 04-23-2023 Albumin Level 3.8 G/dL Normal 3.5-5.0 [facility] ([place] Comment on above: Performed By: #### M ALBR #### [address] [address] Albumin/Globulin [Mass ratio] 1.1 {ratio} Normal 1.1-2.5 [facility] ([place] Comment on above: Performed By: #### M ALBR #### [address] [address] ALP [Catalytic activity/Vol] 73 U/L Normal 40-135 [facility] ([place] Comment on above: Performed By: #### M ALBR #### [address] [address] ALT [Catalytic activity/Vol] 24 U/L Normal 16-63 [facility] ([place] Comment on above: Performed By: #### M ALBR #### [address] [address] AST [Catalytic activity/Vol] 22 U/L Normal 10-40 [facility] ([place] Comment on above: Performed By: #### M ALBR #### [address] [address] Bili Total 0.5 mg/dL Normal 0.2-1.0 [facility] ([place]) Comment on above: Result Comment: Use of this assay is not recommended for patients undergoing treatment with eltrombopag due to the potential for falsely elevated results. Performed By: #### M ALBR #### [address] [address] BUN/Creatinine Ratio 18 ratio Normal 7-27 [facility] ([place]) Comment on above: Performed By: #### M ALBR #### [address] [address] Calcium [Mass/Vol] 8.4 mg/dL Normal 8.4-10.2 [facility] ([place]) Comment on above: Performed By: #### M ALBR #### [address] [address] Chloride [Moles/Vol] 107 mmol/L Normal 98-107 [facility] ([place] Comment on above: Performed By: #### M ALBR #### [address] [address] CO2 [Moles/Vol] 22 mmol/L Normal 22-29 [facility] ([place] Comment on above: Performed By: #### M ALBR #### [address] [address] Creatinine [Mass/Vol] 1.44 mg/dL High 0.70-1.30 [facility] ([place] Comment on above: Performed By: #### M ALBR #### [address] [address] Electrolyte Balance 9.0 mEq/L Normal 4.0-15.0 [facility] ([place] Comment on above: Performed By: #### M ALBR #### [address] [address] Globulin 3.4 G/dL Normal [facility] ([place] Comment on above: Performed By: #### M ALBR #### [address] [address] Glucose [Mass/Vol] 99 mg/dL Normal 70-105 [facility] ([place] Comment on above: Performed By: #### M ALBR #### [address] [address] Potassium [Moles/Vol] 4.3 mmol/L Normal 3.5-5.1 [facility] ([place] Comment on above: Performed By: #### M ALBR #### [address] [address] Sodium [Moles/Vol] 138 mmol/L Normal 136-145 [facility] ([place] Comment on above: Performed By: #### M ALBR #### [address] [address] Total Protein 7.2 G/dL Normal 6.4-8.2 [facility] ([place] Comment on above: Performed By: #### M ALBR #### [address] [place] [address] [place], [place] [address] Urea nitrogen [Mass/Vol] 26 mg/dL High 7-18 [facility] ([place] Comment on above: Performed By: #### M ALBR #### [address] [place] [address] [place], [place] [address] FEon 04-23-2023 Iron [Mass/Vol] 43 ug/dL Low 65-175 [facility] ([place] Comment on above: Performed By: #### M ALBR #### [place] [place] [address] [place], [place] [address] IBCon 04-23-2023 TIBC 483 mcg/dL High 250-450 [facility] ([place] Comment on above: Performed By: #### M ALBR #### [place] [place] [address] [place], [place] [address] LABORATORYOrdered By: Rabia Gonzalez on 04-23-2023 Albumin DL <= 20 mg/L (U) [Mass/Vol] [address] mcg/dL Invalid Interpretation Code AO ADM SS Albumin/Creatinine DL <= 20 mg/L (U) [Mass ratio] 78 mcg/mg Invalid Interpretation Code 0 - 30 mcg/mg AO ADM SS Creatinine (U) [Mass/Vol] 179.8 mg/dL Invalid Interpretation Code 39.0 - 259.0 mg/dL AO ADM SS LABORATORYOrdered By: SYSTEM SYSTEM on 04-23-2023 Basophil, Absolute 0.0 103/mcL Invalid Interpretation Code 0.0 - 0.2 10^3/mcL AO Workflow SS Basophils/100 WBC (Bld) 0.4 % Invalid Interpretation Code 0.0 - 2.5 % AO Workflow SS Eosinophil, Absolute 0.1 103/mcL Invalid Interpretation Code 0.0 - 0.4 10^3/mcL AO Workflow SS Eosinophils/100 WBC (Bld) 1.0 % Invalid Interpretation Code 0.0 - 7.0 % AO Workflow SS Erythrocyte distribution width (RBC) [Ratio] 17.4 % Invalid Interpretation Code 11.5 - 14.5 % AO Workflow SS Hematocrit (Bld) [Volume fraction] 40.5 % Invalid Interpretation Code 42.0 - 52.0 % AO Workflow SS Hemoglobin (Bld) [Mass/Vol] 13.0 G/dL Invalid Interpretation Code 14.0 - 18.0 G/dL AO Workflow SS Lymphocyte, Absolute 1.8 103/mcL Invalid Interpretation Code 0.8 - 3.9 10^3/mcL AO Workflow SS Lymphocytes/100 WBC (Bld) 30.4 % Invalid Interpretation Code 10.0 - 50.0 % AO Workflow SS MCH (RBC) [Entitic mass] 25.2 pg Invalid Interpretation Code 27.0 - 31.2 pg AO Workflow SS MCHC 32.1 G/dL Invalid Interpretation Code 31.8 - 35.4 G/dL AO Workflow SS MCV (RBC) [Entitic vol] 78.5 fL Invalid Interpretation Code 80.0 - 94.0 fL AO Workflow SS Monocyte, Absolute 0.3 103/mcL Invalid Interpretation Code 0.2 - 1.0 10^3/mcL AO Workflow SS Monocytes/100 WBC (Bld) 5.2 % Invalid Interpretation Code 1.7 - 13.0 % AO Workflow SS Neutrophil, Absolute 3.8 103/mcL Invalid Interpretation Code 2.9 - 6.2 10^3/mcL AO Workflow SS Neutrophils/100 WBC (Bld) 63.0 % Invalid Interpretation Code 37.0 - 80.0 % AO Workflow SS Platelet mean volume (Bld) [Entitic vol] 8.0 fL Invalid Interpretation Code 7.4 - 10.4 fL AO Workflow SS Platelets (Bld) [#/Vol] 220 103/mcL Invalid Interpretation Code 130 - 400 10^3/mcL AO Workflow SS RBC (Bld) [#/Vol] 5.17 106/mcL Invalid Interpretation Code 4.04 - 6.13 10^6/mcL AO Workflow SS WBC (Bld) [#/Vol] 6.0 103/mcL Invalid Interpretation Code 4.6 - 10.8 10^3/mcL AO Workflow SS 25-hydroxyvitamin D3 [Mass/Vol] 34.8 ng/mL Invalid Interpretation Code AO ADM SS Comment on above: Interpretive Data: I nterpretive Values Based on Total 25(OH) Vitamin D: Deficient <20 ng/mL Insufficient 20 - <30 ng/mL Sufficient 30-100 ng/mL Albumin BCP dye [Mass/Vol] 3.8 G/dL Invalid Interpretation Code 3.5 - 5.0 G/dL AO ADM SS Albumin/Globulin [Mass ratio] 1.1 {ratio} Invalid Interpretation Code 1.1 - 2.5 ratio AO ADM SS ALP [Catalytic activity/Vol] 73 U/L Invalid Interpretation Code 40 - 135 U/L AO ADM SS ALT With P-5'-P [Catalytic activity/Vol] 24 U/L Invalid Interpretation Code 16 - 63 U/L AO ADM SS AST With P-5'-P [Catalytic activity/Vol] 22 U/L Invalid Interpretation Code 10 - 40 U/L AO ADM SS Bilirubin [Mass/Vol] 0.5 mg/dL Invalid Interpretation Code 0.2 - 1.0 mg/dL AO ADM SS Comment on above: Interpretive Data: U se of this assay is not recommended for patients undergoing treatment with eltrombopag due to the potential for falsely elevated results. Calcium [Mass/Vol] 8.4 mg/dL Invalid Interpretation Code 8.4 - 10.2 mg/dL AO ADM SS Chloride [Moles/Vol] 107 mmol/L Invalid Interpretation Code 98 - 107 mmol/L AO ADM SS CO2 [Moles/Vol] 22 mmol/L Invalid Interpretation Code 22 - 29 mmol/L AO ADM SS Creatinine [Mass/Vol] 1.44 mg/dL Invalid Interpretation Code 0.70 - 1.30 mg/dL AO ADM SS Electrolyte Balance 9.0 mEq/L Invalid Interpretation Code 4.0 - 15.0 mEq/L AO ADM SS GFR/1.73 sq M.predicted among blacks MDRD (S/P/Bld) [Vol rate/Area] 63 ml/min/1.73sqm Invalid Interpretation Code AO Chemistry S Comment on above: Interpretive Data: GFR Population mean for , Non- Americans Ages 20-29 = 116 mL/min/1.73 sq.m. Ages 30-39 = 107 mL/min/1.73 sq.m. Ages 40-49 = 99 mL/min/1.73 sq.m. Ages 50-59 = 93 mL/min/1.73 sq.m. Ages 60-69 = 85 mL/min/1.73 sq.m. Ages 70+ = 75 mL/min/1.73 sq.m. Chronic Kidney Disease: Less than 60 mL/min/1.73 square meters End Stage Renal Disease: Less than 15 mL/min/1.73 square meters GFR/1.73 sq M.predicted among non-blacks MDRD (S/P/Bld) [Vol rate/Area] 52 ml/min/1.73sqm Invalid Interpretation Code AO Chemistry S Comment on above: Interpretive Data: GFR Population mean for , Non- Americans Ages 20-29 = 116 mL/min/1.73 sq.m. Ages 30-39 = 107 mL/min/1.73 sq.m. Ages 40-49 = 99 mL/min/1.73 sq.m. Ages 50-59 = 93 mL/min/1.73 sq.m. Ages 60-69 = 85 mL/min/1.73 sq.m. Ages 70+ = 75 mL/min/1.73 sq.m. Chronic Kidney Disease: Less than 60 mL/min/1.73 square meters End Stage Renal Disease: Less than 15 mL/min/1.73 square meters Globulin 3.4 G/dL Invalid Interpretation Code AO ADM SS Glucose [Mass/Vol] 99 mg/dL Invalid Interpretation Code 70 - 105 mg/dL AO ADM SS HbA1c (Bld) [Mass fraction] 5.8 % Invalid Interpretation Code 4.3 - 6.4 % AO ADM SS Iron [Mass/Vol] 43 ug/dL Invalid Interpretation Code 65 - 175 mcg/dL AO ADM SS Iron binding capacity [Mass/Vol] 483 mcg/dL Invalid Interpretation Code 250 - 450 mcg/dL AO ADM SS Potassium [Moles/Vol] 4.3 mmol/L Invalid Interpretation Code 3.5 - 5.1 mmol/L AO ADM SS Protein [Mass/Vol] 7.2 G/dL Invalid Interpretation Code 6.4 - 8.2 G/dL AO ADM SS Sodium [Moles/Vol] 138 mmol/L Invalid Interpretation Code 136 - 145 mmol/L AO ADM SS Urea nitrogen [Mass/Vol] 26 mg/dL Invalid Interpretation Code 7 - 18 mg/dL AO ADM SS Urea nitrogen/Creatinine [Mass ratio] 18 ratio Invalid Interpretation Code 7 - 27 ratio AO ADM SS Uric Acid Lvl 4.1 mg/dL Invalid Interpretation Code 3.5 - 7.2 mg/dL AO ADM SS MALBRon 04-23-2023 U Creatinine 179.8 mg/dL Normal 39.0-259.0 [facility] ([place]) Comment on above: Performed By: #### M ALBR #### [address] [place] [address] [place], [place] [address] U Microalb [address] mcg/dL Normal [facility] ([place]) Comment on above: Performed By: #### M ALBR #### [place] [place] [address] [place], [place] [address] U Ratio Alb/Cre 78 mcg/mg High 0-30 [facility] ([place]) Comment on above: Performed By: #### M ALBR #### [address] [address] URICon 04-23-2023 Uric Acid Lvl 4.1 mg/dL Normal 3.5-7.2 [facility] ([place]) Comment on above: Performed By: #### M ALBR #### [address] [address] VIDHon 04-23-2023 Vit. D 25-Hydroxy 34.8 ng/mL Normal [facility] ([place]) Comment on above: Result Comment: Inte rpretive Values Based on Total 25(OH) Vitamin D: Deficient <20 ng/mL Insufficient 20 - <30 ng/mL Sufficient 30-100 ng/mL Performed By: #### M ALBR #### [address] [address] Basophil percentageOrdered B y: Richy Heredia on 01-16-2023 Cholesterol [Mass/Vol] 123 mg/dL <200 [facility] Comment on above: <200 mg/dL Desirable 200-240 mg/dL Borderline >240 mg/dL High Risk Triglyceride [Mass/Vol] 125 mg/dL <199 [facility] Comment on above: The drugs N-Acetylcy steine and Metamizole may falsely depress this assay.Serum Triglycerides Reference Interval Normal <150 mg/dL Borderline high 150 - 199 mg/dL High 200 - 499 mg/dL Very High > or = 500 mg/dL WBC (Bld) [#/Vol] 6.9 10*3/uL 4.4-11.0 [facility] Blood erythrocytes count (nu mber/volume)Ordered By: Ricyh Heredia on 01-16-2023 RBC (Bld) [#/Vol] 5.32 10*6/uL 4.6-6.2 [facility] Blood hemoglobin measurement (mass/volume)Ordered By: Richy Heredia on 01-16-2023 Hemoglobin (Bld) [Mass/Vol] 13.0 g/dL 13.0-16.5 [facility] Blood platelet mean volumeOr dered By: Richy Heredia on 01-16-2023 Platelet mean volume (Bld) [Entitic vol] 9.3 fL 6.2-12.0 [facility] Determination of erythrocyte mean corpuscular volume (MCV)Ordered By: Richy Heredia on 01-16-2023 MCV (RBC) [Entitic vol] 79.5 fL 80-94 [facility] Hematocrit Auto (Bld) [Volum e fraction]Ordered By: Richy Heredia on 01-16-2023 Hematocrit (Bld) [Volume fraction] 42.3 % 40-54 [facility] Iron measurement (mass/mass) Ordered By: Richy Heredia on 01-16-2023 Iron (Unsp spec) [Mass/Mass] 34 ug/dL 65-175 [facility] Laboratory - Chemistry and C hemistry - challengeOrdered By: Richy Heredia on 01-16-2023 Free T4 [Mass/Vol] 0.93 ng/dL 0.76-1.46 [facility] - Hematology and Cell countsOrdered By: Richy Heredia on 01-16-2023 Erythrocyte distribution width (RBC) [Entitic vol] 43.2 fL 35.1-43.9 [facility] Erythrocyte distribution width (RBC) [Ratio] 15.1 % 11.6-14.6 [facility] MCH (RBC) [Entitic mass] 24.4 pg 27.0-32.0 [facility] MCHC Auto (RBC) [Mass/Vol]Or dered By: Richy Heredia on 01-16-2023 MCHC (RBC) [Mass/Vol] 30.7 g/dL 32-36 [facility] No Panel InformationOrdered By: Richy Heredia on 01-16-2023 Thyroid Stimulating Hormone (TSH) 1.26 uIU/mL 0.358-3.74 [facility] Vitamin D 25-Hydroxy 30.9 ng/mL [facility] Comment on above: Vitamin D 25(OH) Sta tus Range Deficiency <20 ng/mL (50nmol/L) Insufficiency 20 - 30 ng/mL (50 - 75 nmol/L) Sufficiency 30 - 100 ng/mL (75 - 250 nmol/L) Toxicity >100 ng/mL (>250 nmol/L) Platelets bldOrdered By: Fran Heredia on 01-16-2023 Platelets (Bld) [#/Vol] 236 10*3/uL 150-450 [facility] Serum or plasma cholesterol in HDL measurement (mass/volume)Ordered By: Richy Heredia on 01-16-2023 Cholesterol in HDL [Mass/Vol] 31 mg/dL >40 [facility] Comment on above: The drugs N-Acetylcy steine and Metamizole may falsely depress this assay. Reference Range HDL <40 mg/dL Low HDL Cholesterol HDL >or= 60 mg/dL High HDL Cholesterol Serum or plasma cholesterol in VLDL measurement (mass/volume)Ordered By: Richy Heredia on 01-16-2023 Cholesterol in VLDL [Mass/Vol] 25 mg/dL 5-40 [facility] Serum or plasma low density lipoprotein (LDL) cholesterol measurement (mass/volume)Ordered By: Richy Heredia on 01-16-2023 Cholesterol in LDL [Mass/Vol] 67 mg/dL 0-130 [facility] Thin prep Papanicolaou smear with manual screeningOrdered By: Richy Heredia on 01-16-2023 Thin prep Papanicolaou smear with manual screening 158.0 mg/L NO RANGE EST. [facility] LABORATORYOrdered By: SYSTEM SYSTEM on 10-23-2022 Albumin BCP dye [Mass/Vol] 3.7 G/dL Invalid Interpretation Code 3.5 - 5.0 G/dL AO ADM SS Albumin/Globulin [Mass ratio] 1.2 {ratio} Invalid Interpretation Code 1.1 - 2.5 ratio AO ADM SS ALP [Catalytic activity/Vol] 88 U/L Invalid Interpretation Code 40 - 135 U/L AO ADM SS ALT With P-5'-P [Catalytic activity/Vol] 18 U/L Invalid Interpretation Code 16 - 63 U/L AO ADM SS AST With P-5'-P [Catalytic activity/Vol] 17 U/L Invalid Interpretation Code 10 - 40 U/L AO ADM SS Bilirubin [Mass/Vol] 0.4 mg/dL Invalid Interpretation Code 0.2 - 1.0 mg/dL AO ADM SS Calcium [Mass/Vol] 8.7 mg/dL Invalid Interpretation Code 8.4 - 10.2 mg/dL AO ADM SS Chloride [Moles/Vol] 107 mmol/L Invalid Interpretation Code 98 - 107 mmol/L AO ADM SS CO2 [Moles/Vol] 22 mmol/L Invalid Interpretation Code 22 - 29 mmol/L AO ADM SS Creatinine [Mass/Vol] 1.35 mg/dL Invalid Interpretation Code 0.70 - 1.30 mg/dL AO ADM SS Electrolyte Balance 12.0 mEq/L Invalid Interpretation Code 4.0 - 15.0 mEq/L AO ADM SS GFR/1.73 sq M.predicted among blacks MDRD (S/P/Bld) [Vol rate/Area] 68 ml/min/1.73sqm Invalid Interpretation Code AO Chemistry S GFR/1.73 sq M.predicted among non-blacks MDRD (S/P/Bld) [Vol rate/Area] 56 ml/min/1.73sqm Invalid Interpretation Code AO Chemistry S Globulin 3.0 G/dL Invalid Interpretation Code AO ADM SS Glucose [Mass/Vol] 102 mg/dL Invalid Interpretation Code 70 - 105 mg/dL AO ADM SS HbA1c (Bld) [Mass fraction] 6.0 % Invalid Interpretation Code 4.3 - 6.4 % AO ADM SS Iron [Mass/Vol] 41 ug/dL Invalid Interpretation Code 65 - 175 mcg/dL AO ADM SS Parathyrin.intact [Mass/Vol] 174.4 pg/mL Invalid Interpretation Code 18.5 - 88.0 pg/mL AH ADM SS Potassium [Moles/Vol] 4.5 mmol/L Invalid Interpretation Code 3.5 - 5.1 mmol/L AO ADM SS Protein [Mass/Vol] 6.7 G/dL Invalid Interpretation Code 6.4 - 8.2 G/dL AO ADM SS Sodium [Moles/Vol] 141 mmol/L Invalid Interpretation Code 136 - 145 mmol/L AO ADM SS Urea nitrogen [Mass/Vol] 22 mg/dL Invalid Interpretation Code 7 - 18 mg/dL AO ADM SS Urea nitrogen/Creatinine [Mass ratio] 16 ratio Invalid Interpretation Code 7 - 27 ratio AO ADM SS Uric Acid Lvl 4.7 mg/dL Invalid Interpretation Code 3.5 - 7.2 mg/dL AO ADM SS LABORATORYOrdered By: Odalis Malhotra on 10-23-2022 Basophil, Absolute 0.0 103/mcL Invalid Interpretation Code 0.0 - 0.2 10^3/mcL AO Workflow SS Basophils/100 WBC (Bld) 0.3 % Invalid Interpretation Code 0.0 - 2.5 % AO Workflow SS Eosinophil, Absolute 0.1 103/mcL Invalid Interpretation Code 0.0 - 0.4 10^3/mcL AO Workflow SS Eosinophils/100 WBC (Bld) 1.2 % Invalid Interpretation Code 0.0 - 7.0 % AO Workflow SS Erythrocyte distribution width (RBC) [Ratio] 15.4 % Invalid Interpretation Code 11.5 - 14.5 % AO Workflow SS Hematocrit (Bld) [Volume fraction] 40.8 % Invalid Interpretation Code 42.0 - 52.0 % AO Workflow SS Hemoglobin (Bld) [Mass/Vol] 13.1 G/dL Invalid Interpretation Code 14.0 - 18.0 G/dL AO Workflow SS Lymphocyte, Absolute 1.8 103/mcL Invalid Interpretation Code 0.8 - 3.9 10^3/mcL AO Workflow SS Lymphocytes/100 WBC (Bld) 33.5 % Invalid Interpretation Code 10.0 - 50.0 % AO Workflow SS MCH (RBC) [Entitic mass] 24.8 pg Invalid Interpretation Code 27.0 - 31.2 pg AO Workflow SS MCHC 32.1 G/dL Invalid Interpretation Code 31.8 - 35.4 G/dL AO Workflow SS MCV (RBC) [Entitic vol] 77.2 fL Invalid Interpretation Code 80.0 - 94.0 fL AO Workflow SS Monocyte, Absolute 0.3 103/mcL Invalid Interpretation Code 0.2 - 1.0 10^3/mcL AO Workflow SS Monocytes/100 WBC (Bld) 5.0 % Invalid Interpretation Code 1.7 - 13.0 % AO Workflow SS Neutrophil, Absolute 3.2 103/mcL Invalid Interpretation Code 2.9 - 6.2 10^3/mcL AO Workflow SS Neutrophils/100 WBC (Bld) 60.0 % Invalid Interpretation Code 37.0 - 80.0 % AO Workflow SS Platelet mean volume (Bld) [Entitic vol] 7.9 fL Invalid Interpretation Code 7.4 - 10.4 fL AO Workflow SS Platelets (Bld) [#/Vol] 239 103/mcL Invalid Interpretation Code 130 - 400 10^3/mcL AO Workflow SS RBC (Bld) [#/Vol] 5.29 106/mcL Invalid Interpretation Code 4.04 - 6.13 10^6/mcL AO Workflow SS WBC (Bld) [#/Vol] 5.3 103/mcL Invalid Interpretation Code 4.6 - 10.8 10^3/mcL AO Workflow SS LABORATORYOrdered By: Rabia Gonzalez on 10-23-2022 Cholesterol [Mass/Vol] 165 mg/dL Invalid Interpretation Code 0 - 200 mg/dL AO ADM SS Cholesterol in HDL [Mass/Vol] 39 mg/dL Invalid Interpretation Code 40 - 60 mg/dL AO ADM SS Cholesterol in LDL [Mass/Vol] 98 mg/dL Invalid Interpretation Code 0 - 130 mg/dL AO ADM SS Triglyceride [Mass/Vol] 141 mg/dL Invalid Interpretation Code 0 - 150 mg/dL AO ADM SS LABORATORYOrdered By: DAVID PHYLLIS CONTRIBUTOR_SYSTEM on 10-23-2022 Direct Renin 11.8 pg/mL Invalid Interpretation Code 3.6-81.6pg/m L AO Sendouts SS Comment on above: Result Comment: A ra tito of aldosterone in ng/dL to direct renin in pg/mL greater than or equal to 3.8 is a positive screening test result for primary aldosteronism, when aldosterone is greater than or equal to 15 ng/dL. The reference interval for direct renin is based on an upright position. The supine reference intervals are: Age <41 years: 3.2-33.2 pg/mL Age >=41 years: 2.5-45.1 pg/mL Performed By: [facility] [place] [address] Curtain Fitter: Ke Lozada III, M.D. CLIA#: [id number] Patient Upright or Supine Unknown Invalid Interpretation Code AO Sendouts SS Comment on above: Result Comment: Perf ormed By: [facility] [place] [id number] Curtain Fitter: Ke Lozada III, M.D. CLIA#: [id number] Influenza virus A and B RNA and SARS-CoV-2 (COVID-19) N gene panel YANET+probe (Resp)on 07-09-2022 FLUAV RNA YANET+probe Ql (Unsp spec) Positive Abnormal Negative for Influenza A by RT-PCR [facility] FLUBV RNA YANET+probe Ql (Unsp spec) Negative Negative for Influenza B by RT-PCR [facility] SARS-CoV-2 (COVID-19) RNA YANET+probe Ql (Resp) SARS-CoV-2 (Agent of COVID-19) Not Detected by RT-PCR or equivalent method. Not Detected [facility] XR CHEST 2V FRONTAL/LATon [facility] XR Chest PA and Lateralon IMPRESSION: No acute radiographic abnormality. Ballpoint Pens Assembler: PSCB Transcribe Date/Time: Jul 09 2022 10:07A Dictated by : CHIN VOGEL MD This examination was interpreted and the report reviewed and electronically signed by: CHIN VOGEL MD on Jul 09 2022 10:10AM [facility] * * *Final Report* * * DATE OF EXAM: Jul 09 2022 9:57AM WOX [id number] - XR CHEST 2V FRONTAL/LAT / PROCEDURE REASON: Acute cough * * * * Physician Interpretation * * * * EXAMINATION: CHEST RADIOGRAPH (2 VIEW FRONTAL & LATERAL) CLINICAL HISTORY: Acute cough MQ: [id number] EXAM DATE/TIME: 07/09/2022 9:57 AM COMPARISON: Chest x-ray on 01/06/2022 RESULT: Lines, tubes, and devices: None. Lungs and pleura: Small lung volume due to inadequate inspiration. No consolidation. No lung mass. No pleural effusion. No pneumothorax. Cardiomediastinal silhouette: Stable cardiac silhouette. The left hilum appears somewhat prominent however unchanged. Bones and soft tissues: Unremarkable. DIVISION OF RADIOLOGY Provider, [facility] - 07/09/2022 * * *Final Report* * * DATE OF EXAM: Jul 09 2022 9:57AM WOX [id number] - XR CHEST 2V FRONTAL/LAT / PROCEDURE REASON: Acute cough * * * * Physician Interpretation * * * * EXAMINATION: CHEST RADIOGRAPH (2 VIEW FRONTAL & LATERAL) CLINICAL HISTORY: Acute cough MQ: XC2_6 EXAM DATE/TIME: 07/09/2022 9:57 AM COMPARISON: Chest x-ray on 01/06/2022 RESULT: Lines, tubes, and devices: None. Lungs and pleura: Small lung volume due to inadequate inspiration. No consolidation. No lung mass. No pleural effusion. No pneumothorax. Cardiomediastinal silhouette: Stable cardiac silhouette. The left hilum appears somewhat prominent however unchanged. Bones and soft tissues: Unremarkable. IMPRESSION IMPRESSION: No acute radiographic abnormality. Ballpoint Pens Assembler: YOLANDA Transcribe Date/Time: Jul 09 2022 10:07A Dictated by : CHIN VOGEL MD This examination was interpreted and the report reviewed and electronically signed by: CHIN VOGEL MD on Jul 09 2022 10:10AM EST [facility] Radiology Study observation (narrative) [facility] XR Chest PA and LateralOrder ed By: Ccbaltazar Provider on 07-09-2022 [facility] LABORATORYOrdered By: Jovi Valdivia on 04-10-2022 Albumin BCP dye [Mass/Vol] 4.0 G/dL Invalid Interpretation Code 3.5 - 5.0 G/dL AO ADM SS Albumin/Globulin [Mass ratio] 1.3 {ratio} Invalid Interpretation Code 1.1 - 2.5 ratio AO ADM SS ALP [Catalytic activity/Vol] 80 U/L Invalid Interpretation Code 40 - 135 U/L AO ADM SS ALT With P-5'-P [Catalytic activity/Vol] 24 U/L Invalid Interpretation Code 16 - 63 U/L AO ADM SS AST With P-5'-P [Catalytic activity/Vol] 18 U/L Invalid Interpretation Code 10 - 40 U/L AO ADM SS Basophil, Absolute 0.0 103/mcL Invalid Interpretation Code 0.0 - 0.2 10^3/mcL AO Workflow SS Basophils/100 WBC (Bld) 0.3 % Invalid Interpretation Code 0.0 - 2.5 % AO Workflow SS Bilirubin [Mass/Vol] 0.4 mg/dL Invalid Interpretation Code 0.2 - 1.0 mg/dL AO ADM SS Calcium [Mass/Vol] 8.7 mg/dL Invalid Interpretation Code 8.4 - 10.2 mg/dL AO ADM SS Chloride [Moles/Vol] 107 mmol/L Invalid Interpretation Code 98 - 107 mmol/L AO ADM SS Cholesterol [Mass/Vol] 151 mg/dL Invalid Interpretation Code 0 - 200 mg/dL AO ADM SS Cholesterol in HDL [Mass/Vol] 38 mg/dL Invalid Interpretation Code 40 - 60 mg/dL AO ADM SS Cholesterol in LDL [Mass/Vol] 86 mg/dL Invalid Interpretation Code 0 - 130 mg/dL AO ADM SS CO2 [Moles/Vol] 24 mmol/L Invalid Interpretation Code 22 - 29 mmol/L AO ADM SS Creatinine [Mass/Vol] 1.41 mg/dL Invalid Interpretation Code 0.70 - 1.30 mg/dL AO ADM SS Electrolyte Balance 10.0 mEq/L Invalid Interpretation Code 4.0 - 15.0 mEq/L AO ADM SS Eosinophil, Absolute 0.0 103/mcL Invalid Interpretation Code 0.0 - 0.4 10^3/mcL AO Workflow SS Eosinophils/100 WBC (Bld) 0.8 % Invalid Interpretation Code 0.0 - 7.0 % AO Workflow SS Erythrocyte distribution width (RBC) [Ratio] 14.8 % Invalid Interpretation Code 11.5 - 14.5 % AO Workflow SS Globulin 3.1 G/dL Invalid Interpretation Code AO ADM SS Glucose [Mass/Vol] 79 mg/dL Invalid Interpretation Code 70 - 105 mg/dL AO ADM SS HbA1c (Bld) [Mass fraction] 5.9 % Invalid Interpretation Code 4.3 - 6.4 % AO ADM SS Hematocrit (Bld) [Volume fraction] 41.5 % Invalid Interpretation Code 42.0 - 52.0 % AO Workflow SS Hemoglobin (Bld) [Mass/Vol] 13.6 G/dL Invalid Interpretation Code 14.0 - 18.0 G/dL AO Workflow SS Lymphocyte, Absolute 1.8 103/mcL Invalid Interpretation Code 0.8 - 3.9 10^3/mcL AO Workflow SS Lymphocytes/100 WBC (Bld) 32.1 % Invalid Interpretation Code 10.0 - 50.0 % AO Workflow SS MCH (RBC) [Entitic mass] 26.4 pg Invalid Interpretation Code 27.0 - 31.2 pg AO Workflow SS MCHC 32.7 G/dL Invalid Interpretation Code 31.8 - 35.4 G/dL AO Workflow SS MCV (RBC) [Entitic vol] 80.9 fL Invalid Interpretation Code 80.0 - 94.0 fL AO Workflow SS Monocyte, Absolute 0.3 103/mcL Invalid Interpretation Code 0.2 - 1.0 10^3/mcL AO Workflow SS Monocytes/100 WBC (Bld) 6.2 % Invalid Interpretation Code 1.7 - 13.0 % AO Workflow SS Neutrophil, Absolute 3.4 103/mcL Invalid Interpretation Code 2.9 - 6.2 10^3/mcL AO Workflow SS Neutrophils/100 WBC (Bld) 60.6 % Invalid Interpretation Code 37.0 - 80.0 % AO Workflow SS Platelet mean volume (Bld) [Entitic vol] 7.9 fL Invalid Interpretation Code 7.4 - 10.4 fL AO Workflow SS Platelets (Bld) [#/Vol] 207 103/mcL Invalid Interpretation Code 130 - 400 10^3/mcL AO Workflow SS Potassium [Moles/Vol] 4.7 mmol/L Invalid Interpretation Code 3.5 - 5.1 mmol/L AO ADM SS Protein [Mass/Vol] 7.1 G/dL Invalid Interpretation Code 6.4 - 8.2 G/dL AO ADM SS RBC (Bld) [#/Vol] 5.13 106/mcL Invalid Interpretation Code 4.04 - 6.13 10^6/mcL AO Workflow SS Sodium [Moles/Vol] 141 mmol/L Invalid Interpretation Code 136 - 145 mmol/L AO ADM SS Triglyceride [Mass/Vol] 135 mg/dL Invalid Interpretation Code 0 - 150 mg/dL AO ADM SS Urea nitrogen [Mass/Vol] 29 mg/dL Invalid Interpretation Code 7 - 18 mg/dL AO ADM SS Urea nitrogen/Creatinine [Mass ratio] 21 ratio Invalid Interpretation Code 7 - 27 ratio AO ADM SS Uric Acid Lvl 4.1 mg/dL Invalid Interpretation Code 3.5 - 7.2 mg/dL AO ADM SS Vit. D 25-Hydroxy 27.4 ng/mL Invalid Interpretation Code AO ADM SS WBC (Bld) [#/Vol] 5.5 103/mcL Invalid Interpretation Code 4.6 - 10.8 10^3/mcL AO Workflow SS LABORATORYOrdered By: DAVID FERGUSON CONTRIBUTOR_SYSTEM on 04-10-2022 Direct Renin 9.0 pg/mL Invalid Interpretation Code 3.6-81.6pg/m L AO Sendouts SS Comment on above: Result Comment: A ra tito of aldosterone in ng/dL to direct renin in pg/mL greater than or equal to 3.8 is a positive screening test result for primary aldosteronism, when aldosterone is greater than or equal to 15 ng/dL. The reference interval for direct renin is based on an upright position. The supine reference intervals are: Age <41 years: 3.2-33.2 pg/mL Age >=41 years: 2.5-45.1 pg/mL Performed By: [facility] [address] [place] [id number] Curtain Fitter: Ke Lozada III, M.D. CLIA#: [id number] Patient Upright or Supine Upright Invalid Interpretation Code AO Sendouts SS Comment on above: Result Comment: Perf ormed By: [facility] [employer] [address] [place] [id number] Curtain Fitter: Ke Lozada III, M.D. CLIA#: [id number] LABORATORYOrdered By: SYSTEM SYSTEM on 04-10-2022 GFR 65 ml/min/1.73sqm Invalid Interpretation Code AO Chemistry S GFR Non- 54 ml/min/1.73sqm Invalid Interpretation Code AO Chemistry S Parathyrin.intact [Mass/Vol] 152.6 pg/mL Invalid Interpretation Code 18.5 - 88.0 pg/mL AH ADM SS XR Chest PA and Lateralon IMPRESSION: Low lung volumes. No acute radiographic abnormality. [facility]point Pens [facility] Transcribe Date/Time: Jan 06 2022 3:59P Dictated by : ROBBI MONTES DE OCA MD This examination was interpreted and the report reviewed and electronically signed by: ROBBI MONTES DE OCA MD on Jan 06 2022 4:01PM EST [email or web address] E_DIVISION OF RADIOLOGY * * *Final Report* * * DATE OF EXAM: Jan 06 2022 3:57PM WOX 5291 - XR CHEST 2V FRONTAL/LAT / PROCEDURE REASON: Acute cough * * * * Physician Interpretation * * * * EXAMINATION: CHEST RADIOGRAPH (2 VIEW FRONTAL & LATERAL) CLINICAL HISTORY: Acute cough MQ: XC2_6 EXAM DATE/TIME: 01/06/2022 3:57 PM COMPARISON: 10/14/2008 RESULT: Lines, tubes, and devices: None. Lungs and pleura: Low lung volumes. No focal airspace consolidation, pleural effusion or pneumothorax. Mild coarse interstitial markings, presumably exaggerated secondary to low lung volumes. Cardiomediastinal silhouette: Normal cardiomediastinal silhouette. Bones and soft tissues: No acute osseous abnormality. [email or web address] E_DIVISION OF RADIOLOGY Provider, Fredrick Zee - 01/06/2022 * * *Final Report* * * DATE OF EXAM: Jan 06 2022 3:57PM WOX 5291 - XR CHEST 2V FRONTAL/LAT / PROCEDURE REASON: Acute cough * * * * Physician Interpretation * * * * EXAMINATION: CHEST RADIOGRAPH (2 VIEW FRONTAL & LATERAL) CLINICAL HISTORY: Acute cough MQ: XC2_6 EXAM DATE/TIME: 01/06/2022 3:57 PM COMPARISON: 10/14/2008 RESULT: Lines, tubes, and devices: None. Lungs and pleura: Low lung volumes. No focal airspace consolidation, pleural effusion or pneumothorax. Mild coarse interstitial markings, presumably exaggerated secondary to low lung volumes. Cardiomediastinal silhouette: Normal cardiomediastinal silhouette. Bones and soft tissues: No acute osseous abnormality. IMPRESSION IMPRESSION: Low lung volumes. No acute radiographic abnormality. Ballpoint Pens Assembler: YOLANDA Transcribe Date/Time: Jan 06 2022 3:59P Dictated by : ROBBI MONTES DE OCA MD This examination was interpreted and the report reviewed and electronically signed by: ROBBI MONTES DE OCA MD on Jan 06 2022 4:01PM EST [facility] Radiology Study observation (narrative) [facility] XR Chest PA and LateralOrder ed By: Fredrick Provider on 01-06-2022 [facility] LABORATORYOrdered By: Kirsten Black on 10-02-2021 Albumin BCP dye [Mass/Vol] 4.1 G/dL Invalid Interpretation Code 3.5 - 5.0 G/dL AO ADM SS Albumin/Globulin [Mass ratio] 1.2 {ratio} Invalid Interpretation Code 1.1 - 2.5 ratio AO ADM SS ALP [Catalytic activity/Vol] 95 U/L Invalid Interpretation Code 40 - 135 U/L AO ADM SS ALT With P-5'-P [Catalytic activity/Vol] 48 U/L Invalid Interpretation Code 16 - 63 U/L AO ADM SS AST With P-5'-P [Catalytic activity/Vol] 26 U/L Invalid Interpretation Code 10 - 40 U/L AO ADM SS Bilirubin [Mass/Vol] 0.4 mg/dL Invalid Interpretation Code 0.2 - 1.0 mg/dL AO ADM SS Calcium [Mass/Vol] 9.2 mg/dL Invalid Interpretation Code 8.4 - 10.2 mg/dL AO ADM SS Chloride [Moles/Vol] 108 mmol/L Invalid Interpretation Code 98 - 107 mmol/L AO ADM SS Cholesterol [Mass/Vol] 163 mg/dL Invalid Interpretation Code 0 - 200 mg/dL AO ADM SS Cholesterol in HDL [Mass/Vol] 30 mg/dL Invalid Interpretation Code 40 - 60 mg/dL AO ADM SS Cholesterol in LDL [Mass/Vol] 114 mg/dL Invalid Interpretation Code 0 - 130 mg/dL AO ADM SS CO2 [Moles/Vol] 24 mmol/L Invalid Interpretation Code 22 - 29 mmol/L AO ADM SS Creatinine [Mass/Vol] 1.48 mg/dL Invalid Interpretation Code 0.70 - 1.30 mg/dL AO ADM SS Electrolyte Balance 11.0 mEq/L Invalid Interpretation Code 4.0 - 15.0 mEq/L AO ADM SS Globulin 3.4 G/dL Invalid Interpretation Code AO ADM SS Glucose [Mass/Vol] 90 mg/dL Invalid Interpretation Code 70 - 105 mg/dL AO ADM SS HbA1c (Bld) [Mass fraction] 6.3 % Invalid Interpretation Code 4.3 - 6.4 % AO ADM SS Potassium [Moles/Vol] 5.4 mmol/L Invalid Interpretation Code 3.5 - 5.1 mmol/L AO ADM SS Protein [Mass/Vol] 7.5 G/dL Invalid Interpretation Code 6.4 - 8.2 G/dL AO ADM SS Sodium [Moles/Vol] 143 mmol/L Invalid Interpretation Code 136 - 145 mmol/L AO ADM SS Triglyceride [Mass/Vol] 96 mg/dL Invalid Interpretation Code 0 - 150 mg/dL AO ADM SS Urea nitrogen [Mass/Vol] 34 mg/dL Invalid Interpretation Code 7 - 18 mg/dL AO ADM SS Urea nitrogen/Creatinine [Mass ratio] 23 ratio Invalid Interpretation Code 7 - 27 ratio AO ADM SS LABORATORYOrdered By: Ck Machado on 10-02-2021 Basophil, Absolute 0.00 103/mcL Invalid Interpretation Code 0.00 - 0.19 10^3/mcL AO Auto Heme SS Basophils/100 WBC (Bld) 0.4 % Invalid Interpretation Code 0.0 - 2.5 % AO Auto Heme SS Eosinophil, Absolute 0.10 103/mcL Invalid Interpretation Code 0.00 - 0.40 10^3/mcL AO Auto Heme SS Eosinophils/100 WBC (Bld) 1.0 % Invalid Interpretation Code 0.0 - 7.0 % AO Auto Heme SS Erythrocyte distribution width (RBC) [Ratio] 15.3 % Invalid Interpretation Code 11.5 - 14.5 % AO Auto Heme SS Hematocrit (Bld) [Volume fraction] 41.6 % Invalid Interpretation Code 42.0 - 52.0 % AO Auto Heme SS Hemoglobin (Bld) [Mass/Vol] 13.7 G/dL Invalid Interpretation Code 14.0 - 18.0 G/dL AO Auto Heme SS Lymphocyte, Absolute 1.70 103/mcL Invalid Interpretation Code 0.77 - 3.85 10^3/mcL AO Auto Heme SS Lymphocytes/100 WBC (Bld) 32.3 % Invalid Interpretation Code 10.0 - 50.0 % AO Auto Heme SS MCH (RBC) [Entitic mass] 26.2 pg Invalid Interpretation Code 27.0 - 31.2 pg AO Auto Heme SS MCHC (RBC) [Mass/Vol] 33.0 G/dL Invalid Interpretation Code 31.8 - 35.4 G/dL AO Auto Heme SS MCV (RBC) [Entitic vol] 79.2 fL Invalid Interpretation Code 80.0 - 94.0 fL AO Auto Heme SS Monocyte, Absolute 0.30 103/mcL Invalid Interpretation Code 0.15 - 1.00 10^3/mcL AO Auto Heme SS Monocytes/100 WBC (Bld) 6.1 % Invalid Interpretation Code 1.7 - 13.0 % AO Auto Heme SS Neutrophil, Absolute 3.20 103/mcL Invalid Interpretation Code 2.85 - 6.16 10^3/mcL AO Auto Heme SS Neutrophils/100 WBC (Bld) 60.2 % Invalid Interpretation Code 37.0 - 80.0 % AO Auto Heme SS Platelet mean volume (Bld) [Entitic vol] 8.3 fL Invalid Interpretation Code 7.4 - 10.4 fL AO Auto Heme SS Platelets (Bld) [#/Vol] 262 103/mcL Invalid Interpretation Code 130 - 400 10^3/mcL AO Auto Heme SS RBC (Bld) [#/Vol] 5.25 106/mcL Invalid Interpretation Code 4.04 - 6.13 10^6/mcL AO Auto Heme SS WBC (Bld) [#/Vol] 5.40 103/mcL Invalid Interpretation Code 4.60 - 10.80 10^3/mcL AO Auto Heme SS LABORATORYOrdered By: SYSTEM SYSTEM on 10-02-2021 GFR 61 ml/min/1.73sqm Invalid Interpretation Code AO Chemistry S GFR Non- 51 ml/min/1.73sqm Invalid Interpretation Code AO Chemistry S Vital Signs Date Time Vital Sign Value Performing Clinician Facility 11-13-2024 11:19-0400 Body mass index (BMI) [Ratio] 37.33 kg/m2 Ashlyn Moomaw MANAGER [employer].DIRECTOR OF ANESTHESIA SERVICES Work Phone: [facility] 11-13-2024 11:19-0400 Body temperature 98.71 [degF] Ashlyn Moomaw MANAGER [employer].DIRECTOR OF ANESTHESIA SERVICES Work Phone: [facility] 11-13-2024 11:19-0400 Body weight 113 kg Ashlyn Moomaw MANAGER [employer].DIRECTOR OF ANESTHESIA SERVICES Work Phone: [facility] 11-13-2024 11:19-0400 Diastolic blood pressure 91 mm[Hg] Ashlyn Moomaw MANAGER [employer].DIRECTOR OF ANESTHESIA SERVICES Work Phone: [facility] 11-13-2024 11:19-0400 Heart rate 73 /min Ashlyn Moomaw MANAGER [employer].DIRECTOR OF ANESTHESIA SERVICES Work Phone: [facility] 11-13-2024 11:19-0400 Respiratory rate 20 /min Ashlyn Moomaw MANAGER [employer].DIRECTOR OF ANESTHESIA SERVICES Work Phone: [facility] 11-13-2024 11:19-0400 SaO2% (BldA) [Mass fraction] 96 % Ashlyn Moomaw MANAGER [employer].DIRECTOR OF ANESTHESIA SERVICES Work Phone: [facility] 11-13-2024 11:19-0400 Systolic blood pressure 141 mm[Hg] Ashlyn Moomaw MANAGER [employer].DIRECTOR OF ANESTHESIA SERVICES Work Phone: [facility] 07-09-2022 09:31-0500 Body temperature 100.29 [degF] Delores Cueva MANAGER [employer].DIRECTOR OF ANESTHESIA SERVICES Work Phone: [facility] 07-09-2022 09:31-0500 Body weight 110.04 kg Delores Cueva MANAGER [employer].DIRECTOR OF ANESTHESIA SERVICES Work Phone: [facility] 07-09-2022 09:31-0500 Diastolic blood pressure 84 mm[Hg] Delores Cueva MANAGER [employer].DIRECTOR OF ANESTHESIA SERVICES Work Phone: [facility] 07-09-2022 09:31-0500 Heart rate 96 /min Delores Cueva MANAGER [employer].DIRECTOR OF ANESTHESIA SERVICES Work Phone: [facility] 07-09-2022 09:31-0500 Respiratory rate 18 /min Delores Cueva MANAGER [employer].DIRECTOR OF ANESTHESIA SERVICES Work Phone: [facility] 07-09-2022 09:31-0500 SaO2% (BldA) [Mass fraction] 97 % Delores Cueva MANAGER [employer].DIRECTOR OF ANESTHESIA SERVICES Work Phone: [facility] 07-09-2022 09:31-0500 Systolic blood pressure 132 mm[Hg] Delores Cueva MANAGER [employer].DIRECTOR OF ANESTHESIA SERVICES Work Phone: [facility] 01-05-2022 11:47-0400 Body temperature 99.5 [degF] Natalee Praisler-Wood MANAGER [employer].DIRECTOR OF ANESTHESIA SERVICES Work Phone: [facility] 01-05-2022 11:47-0400 Body weight 109.77 kg Natalee Praisler-Wood MANAGER [employer].DIRECTOR OF ANESTHESIA SERVICES Work Phone: [facility] 01-05-2022 11:47-0400 Diastolic blood pressure 84 mm[Hg] Natalee Praisler-Wood MANAGER [employer].DIRECTOR OF ANESTHESIA SERVICES Work Phone: [facility] 01-05-2022 11:47-0400 Heart rate 73 /min Natalee Praisler-Wood MANAGER [employer].DIRECTOR OF ANESTHESIA SERVICES Work Phone: [facility] 01-05-2022 11:47-0400 Respiratory rate 16 /min Natalee Praisler-Wood MANAGER [employer].DIRECTOR OF ANESTHESIA SERVICES Work Phone: [facility] 01-05-2022 11:47-0400 SaO2% (BldA) [Mass fraction] 96 % Natalee Praisler-Wood MANAGER [employer].DIRECTOR OF ANESTHESIA SERVICES Work Phone: [facility] 01-05-2022 11:47-0400 Systolic blood pressure 128 mm[Hg] Natalee Praisler-Wood MANAGER [employer].DIRECTOR OF ANESTHESIA SERVICES Work Phone: [facility] Encounters Encounter Date Encounter Type Care Provider Facility Start: 04-27-2025 ambulatory Richy Heredia BRANDS EDITOR Facility:[facility] Start: 11-13-2024 End: 11-13-2024 Patient encounter procedure Ashlyn Lassiter MANAGER [employer].DIRECTOR OF ANESTHESIA SERVICES Work Phone: [facility] Comment on above: Lower resp. tract in fection (Primary Dx) Start: 11-13-2024 End: 11-13-2024 ambulatory RICHY HEREDIA Facility:[facility] Start: 10-27-2024 End: 10-31-2024 ambulatory RICHY HEREDIA [employer]NAGER [employer] - DIRECTOR OF ANESTHESIA SERVICES Facility:[facility] Start: 07-08-2024 ambulatory RICHY PETERSON [employer]NAGER [employer] - DIRECTOR OF ANESTHESIA SERVICES Facility:[facility] Start: 06-28-2024 ambulatory RICHY PETERSON [employer]NAGER [employer] - DIRECTOR OF ANESTHESIA SERVICES Facility:[facility] Start: 06-16-2024 End: 06-16-2024 ambulatory RICHY HEREDIA [employer]NAGER [employer] - DIRECTOR OF ANESTHESIA SERVICES Facility:[facility] Start: 06-16-2024 End: 06-16-2024 Patient encounter procedure RICHY HEREDIA MANAGER [employer] - DIRECTOR OF ANESTHESIA SERVICES [facility] Start: 05-13-2024 End: 05-13-2024 ambulatory Richy Heredia BRANDS EDITOR Facility:[facility] Start: 04-28-2024 End: 05-02-2024 ambulatory RICHY HEREDIA [employer]NAGER [employer] - DIRECTOR OF ANESTHESIA SERVICES Facility:[facility] Start: 04-28-2024 End: 05-02-2024 Outreach Lab RICHY HEREDIA MANAGER [employer] - DIRECTOR OF ANESTHESIA SERVICES [facility] Start: 10-22-2023 End: 10-27-2023 ambulatory RICHY HEREDIA [employer]NAGER [employer] - DIRECTOR OF ANESTHESIA SERVICES Facility:[facility] Start: 10-22-2023 End: 10-26-2023 Outreach Lab RICHY HEREDIA MANAGER [employer] - DIRECTOR OF ANESTHESIA SERVICES [facility] Start: 04-30-2023 End: 05-05-2023 ambulatory RICHY HEREDIA [employer]NAGER [employer] - DIRECTOR OF ANESTHESIA SERVICES Facility:[facility] Start: 04-30-2023 End: 05-04-2023 Outreach Lab RICHY Jain YAN [employer]NAGER [employer] - DIRECTOR OF ANESTHESIA SERVICES [facility] Start: 04-23-2023 End: 04-28-2023 ambulatory RICHY Susy YAN MANAGER [employer] - DIRECTOR OF ANESTHESIA SERVICES Facility:[facility] Start: 04-23-2023 End: 04-27-2023 Outreach Lab RICHY Jain YAN [employer]NAGER [employer] - DIRECTOR OF ANESTHESIA SERVICES [facility] Start: 01-16-2023 End: 01-16-2023 ambulatory [facility] Work Phone: Start: 01-16-2023 End: 01-16-2023 Patient encounter procedure [facility] Work Phone: Start: 12-11-2022 End: 12-11-2022 ambulatory [facility] Work Phone: Start: 12-11-2022 End: 12-11-2022 Patient encounter procedure [facility] Start: 11-17-2022 End: 11-17-2022 ambulatory [facility] Work Phone: Start: 11-17-2022 End: 11-17-2022 Patient encounter procedure [facility] Start: 10-23-2022 End: 10-27-2022 Outreach Lab RICHY Jain YAN MANAGER [employer] - DIRECTOR OF ANESTHESIA SERVICES [facility] Start: 07-09-2022 End: 07-09-2022 Subsequent hospital visit by physician Xr [facility] Work Phone: Radiology Comment on above: Acute cough [R05.1] Start: 07-09-2022 End: 07-09-2022 Patient encounter procedure Delores Cueva MANAGER [employer].DIRECTOR OF ANESTHESIA SERVICES Work Phone: [facility] Comment on above: Acute cough (Primary Dx); URI, acute Start: 04-10-2022 End: 04-14-2022 Outreach Lab RICHY HEREDIA MANAGER [employer] - DIRECTOR OF ANESTHESIA SERVICES [facility] Start: 04-10-2022 End: 04-14-2022 Outreach Lab RICHY HEREDIA APRN - DIRECTOR OF ANESTHESIA SERVICES [facility] Start: 01-06-2022 End: 01-06-2022 Subsequent hospital visit by physician Xr [facility] [place] Work Phone: Radiology Comment on above: Acute cough [R05.1] Start: 01-05-2022 End: 01-05-2022 Patient encounter procedure Natalee Yost APRN.DIRECTOR OF ANESTHESIA SERVICES [facility] Comment on above: Viral bronchitis (Pr imary Dx); Acute bronchitis, unspecified organism; Wheezing; Acute cough Start: 10-02-2021 End: 10-02-2021 Patient encounter procedure RICHY HEREDIA APRN - DIRECTOR OF ANESTHESIA SERVICES [facility] Procedures Date Procedure Procedure Detail Performing Clinician Start: 07-09-2022 COVID WITH FLUA+B, ROUTINE Delores Cueva MANAGER [employer] Work Phone: Start: 07-09-2022 Radiologic exam ches t 2 views Delores Cueva MANAGER [employer].DIRECTOR OF ANESTHESIA SERVICES Work Phone: Start: 01-06-2022 Radiologic exam ches t 2 views Natalee Yost MANAGER [employer].DIRECTOR OF ANESTHESIA SERVICES Work Phone: Start: 02-02-2015 Colonoscopy Natalee Olmos MANAGER [employer].DIRECTOR OF ANESTHESIA SERVICES Work Phone: Plan of Treatment Date Care Activity Detail Author Start: 03-13-2025 Influenza vaccination Influenz a Vaccine (Season Ended) [facility] Start: 02-02-2025 Colonoscopy COLONOSCOPY [facility] Start: 02-02-2025 COLORECTAL CANCER SCREENING COLORECTAL CANCER SCREENING [facility] Start: 02-02-2025 Screening for malign ant neoplasm of colon [facility] Start: 03-13-2024 Covid-19 Vaccine ( season) Covid-19 Vaccine ( season) [facility] Start: 03-13-2024 Influenza vaccination Influenza Vacc ine (#1) [facility] Start: 2023 Shingrix Vaccine (1 of 2) Shingrix Vaccine (1 of 2) [facility] Start: 07-13-2022 DEPRESSION ASSESSMENT DEPRESSION ASS ESSMENT [facility] Start: 03-13-2022 Influenza vaccination C [facility] Start: 01-05-2022 End: 01-19-2022 Influenza virus A and B RNA and SARS-CoV-2 (COVID-19) N gene panel - Respiratory specimen by YANET with probe detection COVID WITH FLUA+B, ROUTINE Microbiology Routine Viral bronchitis Expected: 01/05/2022, Expires: 01/19/2022 [facility] Work Phone: Comment on above: Expected: 01/05/2022 , Expires: 01/19/2022 Start: 2018 COLOGUARD (FIT-DNA) COLOGUARD (FIT-D NA) [facility] Start: [address] COLONOGRAPHY [facility] Start: 2018 FECAL OCCULT BLOOD FECAL OCCULT BLOO D [facility] Start: 2018 Screening for malign ant neoplasm of colon [facility] Start: 2018 SIGMOIDOSCOPY SIGMOIDOSCOPY [facility] Start: 08-10-2009 Hepatitis B screening URINE ALBUMIN:CREATININE RATIO [facility] Start: 08-10-2009 Hepatitis B surface antibody level LDL CHOLESTEROL [facility] Start: 11-08-2008 Hemoglobin A1c measurement HbA1C [facility] Start: 11-08-2008 Hemoglobin A1c/Hemoglobin.total in Blood HBA1C [facility] Start: 1992 HEPATITIS B (1 of 3 - Risk 3-dose series) HEPATITIS B (1 of 3 - Risk 3-dose series) [facility] Start: 1992 Hepatitis B Vaccine (1 of 3 - 19+ 3-dose series) Hepatitis B Vaccine (1 of 3 - 19+ 3-dose series) [facility] Start: 1992 Pneumococcal Vaccine : 50+ (1 of 2 - PCV) Pneumococcal Vaccine: 50+ (1 of 2 - PCV) [facility] Start: 1992 Urine microalbumin profile [facility] Start: 1991 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 Start: 1991 HIV SCREENING HIV SCREENING [facility] Start: 1991 HIV screening HIV Screening [facility] Start: 1985 Adult depression screening assessment DEPRESSION SCREENING [facility] Start: 1983 3 comp foot exam completed DIABETIC FOOT EXAM [facility] Start: 1983 Diabetic foot examination Diabetic Foot Exam [facility] Start: 1983 Glaucoma screening Dilated Retinal E xam [facility] Start: 1983 Hepatitis B screening Urine Albumin:Creatinine Ratio [facility] Start: 1983 Hepatitis C antibody , confirmatory test DILATED RETINAL EXAM [facility] Start: 1979 PNEUMOCOCCAL (1 - PCV) PNEUMOCOCCAL (1 - PCV) [facility] Start: 1979 Pneumococcal vaccination Pneum ococcal Vaccine (1 of 2 - PCV) [facility] Start: 1978 COVID-19 VACCINE (#1) COVID-19 VACCI NE (#1) [facility] Start: 1973 COVID-19 VACCINE (#1) COVID-19 VACCI NE (#1) [facility] Start: 1973 HEPATITIS B (1 of 3 - 3-dose series) HEPATITIS B (1 of 3 - 3-dose series) [facility] End: 02-04-2023 Radiologic exam chest 2 views XR CHEST 2V FRONTAL/LAT Radiology STAT Acute cough 1 Occurrences starting 01/05/2022 until 02/04/2023 [facility] Work Phone: Comment on above: 1 Occurrences starti ng 01/05/2022 until 02/04/2023 Payers Date Payer Category Payer Self-pay [id number] 2021 Medicaid MEDICAID [facility] MEDICAID [id number] 2021-Present [phone] [address] [place] [address] Medicaid [id number] 2021 Medicaid [id number] 2014 Unknown [id number] 1973 Unknown [id number] 1973 Unknown [id number] 1973 Unknown [id number] 1973 Unknown [id number] 1973 Unknown [id number] 1973 Unknown [id number] 1973 Unknown [id number] 1973 Unknown [id number] Unknown SCOTTY [id number] Unknown [id number] Unknown [id number] Social History Date Type Detail Facility Start: 03-29-2019 End: 11-13-2024 Ex-smoker (finding) [facility] Comment on above: No smoke exposure Start: 1975 Sex Assigned At Male A [facility] Start: 08-13-1993 End: 08-13-2007 History of tobacco use Current smoker [facility] Start: 08-13-1993 End: 08-13-2007 History of tobacco use Cigarette Smoker [facility] Start: 01-05-2022 End: 11-13-2024 Alcohol intake Current drinker of alcohol (finding) [facility] Start: 01-08-2015 History SDOH Alcohol Comment maybe 1 drink/month [facility] Start: 1975 Sex Assigned At Not on file [facility] Start: 12-26-2021 End: 01-05-2022 Exposure to SARS-CoV-2 (event) Not sure [facility] Start: 06-17-2020 End: 07-09-2022 Cigarettes smoked current (pack per day) - Reported 0.5 [facility] Start: 07-09-2022 End: 11-13-2024 Tobacco use and exposure Smokeless tobacco non-user [facility] Start: 09-11-2020 [facility] Start: 04-02-2021 Occasional [facility] Start: 10-21-2014 None [facility] Start: 10-21-2014 Non-smoker [facility] Start: 06-17-2020 End: 07-09-2022 Tobacco use panel [facility] National Score (1-10 0), lower number is lower risk Not on file [facility] Functional Status Date Assessment Result Facility 02-09-2015 Are you deaf, or do you have serious difficulty hearing No 02/09/2015 8:21 AM Caterina Crawley MA No [facility] 02-09-2015 Are you blind, or do you have serious difficulty seeing, even when wearing glasses No 02/09/2015 8:21 AM Caterina Crawley MA No [facility] 02-09-2015 Do you have serious difficulty walking or climbing stairs No 02/09/2015 8:21 AM EDT Caterina Gonzalez MA No [facility] 02-09-2015 Do you have difficul ty dressing or bathing No 02/09/2015 8:21 AM EDT Carlos, CaterinaERICA sharif No [facility] 02-09-2015 Because of a physica l, mental, or emotional condition, do you have difficulty doing errands alone such as visiting a physician's office or shopping No 02/09/2015 8:21 AM EDT Jennifer Gonzalezanda ERICA No [facility] Mental Status Date Assessment Result Facility 02-09-2015 Because of a physica l, mental, or emotional condition, do you have serious difficulty concentrating, remembering, or making decisions No 02/09/2015 8:21 AM EDT Caterina Gonzalez ERICA No [facility] Clinical Notes 01-05-2022 to 11-13-2024 Ashlyn Lassiter APRN.DIRECTOR OF ANESTHESIA SERVICES - 11/13/2024 11:22 AM EDTAddendum Note - Delores Cueva APRN.DIRECTOR OF ANESTHESIA SERVICES - 07/09/2022 11:16 AM Renetta Brewer RT(Iris) - 07/09/2022 10:00 AM ESTPatient InstructionsLaboratory Note Date & Type Note Facility 11-13-2024 Note HNO ID: [id number] Author: ASHLYN LASSITER APRN.DIRECTOR OF ANESTHESIA SERVICES Service: ? Author Type: Nurse Practitioner Type: Progress Notes Filed: 11/13/2024 11:30 Note Text: This note was created using NoteWriter. Subjective Richy Bob is a 49 year old male. HPI Patient presents today complaining of 2 days of cough, chest tightness, sore throat, and headache. Denies any known fever. Denies any specific sick contacts. Review of Systems As above Objective BP 141/91 Pulse 73 Temp 37.1 ?C (98.7 ?F) Resp 20 Wt 113 kg (249 lb 1.9 oz) SpO2 96% BMI 37.33 kg/m? Physical Exam Vitals and nursing note reviewed. Constitutional: General: He is not in acute distress. Appearance: Normal appearance. He is not ill-appearing. HENT: Head: Normocephalic. Mouth/Throat: Mouth: Mucous membranes are moist. Eyes: Conjunctiva/sclera: Conjunctivae normal. Cardiovascular: Rate and Rhythm: Normal rate and regular rhythm. Pulmonary: Effort: Pulmonary effort is normal. Breath sounds: Wheezing and rhonchi present. Musculoskeletal: General: Normal range of motion. Cervical back: Normal range of motion. Skin: General: Skin is warm and dry. Neurological: General: No focal deficit present. Mental Status: He is alert. Psychiatric: Mood and Affect: Mood normal. Behavior: Behavior normal. Assessment and Plan ASSESSMENT/PLAN: 1. Lower resp. tract infection - ICD9: 519.8, ICD10: J22 Discussed with patient that with 2 days of symptoms it was hard to differentiate viral versus bacterial infection. Discussed possible viral testing which patient declines at this time. Discussed returning tomorrow for chest x-ray which patient also declines. As patient does note cough with coarse lung sounds throughout he will be started on doxycycline as noted below however patient was notified that symptoms may be viral in origin and would resolve either way. - DOXYCYCLINE MONOHYDRATE 100 MG CAPSULE - BENZONATATE 100 MG CAPSULE Ashlyn Lassiter APRN.[facility] 11-13-2024 History of Presen t illness Narrative This note was created using GroupSwimter. Subjective Richy Bob is a 49 year old male. HPI Patient presents today complaining of 2 days of cough, chest tightness, sore throat, and headache. Denies any known fever. Denies any specific sick contacts. Review of Systems As above Objective BP 141/91 Pulse 73 Temp 37.1 C (98.7 F) Resp 20 Wt 113 kg (249 lb 1.9 oz) SpO2 96% BMI 37.33 kg/m Physical Exam Vitals and nursing note reviewed. Constitutional: General: He is not in acute distress. Appearance: Normal appearance. He is not ill-appearing. HENT: Head: Normocephalic. Mouth/Throat: Mouth: Mucous membranes are moist. Eyes: Conjunctiva/sclera: Conjunctivae normal. Cardiovascular: Rate and Rhythm: Normal rate and regular rhythm. Pulmonary: Effort: Pulmonary effort is normal. Breath sounds: Wheezing and rhonchi present. Musculoskeletal: General: Normal range of motion. Cervical back: Normal range of motion. Skin: General: Skin is warm and dry. Neurological: General: No focal deficit present. Mental Status: He is alert. Psychiatric: Mood and Affect: Mood normal. Behavior: Behavior normal. Assessment and Plan ASSESSMENT/PLAN: 1. Lower resp. tract infection - ICD9: 519.8, ICD10: J22 Discussed with patient that with 2 days of symptoms it was hard to differentiate viral versus bacterial infection. Discussed possible viral testing which patient declines at this time. Discussed returning tomorrow for chest x-ray which patient also declines. As patient does note cough with coarse lung sounds throughout he will be started on doxycycline as noted below however patient was notified that symptoms may be viral in origin and would resolve either way. - DOXYCYCLINE MONOHYDRATE 100 MG CAPSULE - BENZONATATE 100 MG CAPSULE Ashlyn Lassiter APRN.[facility] documented in this encounter [facility] 07-09-2022 Miscellaneous Notes Addended by: DELORES CUEVA on: 07/09/2022 11:16 AM Modules accepted: Orders documented in this encounter [facility] 07-09-2022 History of Presen t illness Narrative Radiology Service Progress Note PATIENT NAME: Richy Bob DATE OF SERVICE: July 09, 2022 TIME: 9:53 AM PATIENT IDENTITY VERIFICATION COMPLETED USING TWO (2) IDENTIFIERS: Name and Date of confirmed by patient verbally. FALL SCREENING: Has the patient had 2 falls in the last year or 1 fall with injury or currently using an Ambulatory Assistive Device (Walker, Cane, Wheelchair, Crutches, etc.)? No PATIENT GENDER DATA: Male PATIENT RELEVANT IMPLANT DATA REVIEWED: Not Applicable RADIOLOGY DEPARTMENT: General X-ray: Exam(s) Completed: Chest X-Ray PERIPHERAL IV DATA: Not applicable SIGNED BY: RT Michelle(R) July 09, 2022 9:53 AM documented in this encounter [facility] 07-09-2022 History of Presen t illness Narrative This note was created using Letsdeccoriter. Subjective Richy Bob is a 47 year old male. 47 year old male with PMH HTN, DM and sleep apnea presents for illness. Acute onset 07/06/22 +cough harsh and intermittent between dry and productive. +congestion +chills +headache +diarrhea +fever 100.3 Denies N/V Denies tobacco usage. Has used Mucinex Robitussin and Delsym They had left over bLife that seemed to help. They are scheduled to leave to go out of town tomorrow. The history is provided by the patient. No staple laster was used. Cough This is a new problem. The current episode started more than 2 days ago. The problem occurs constantly. The problem has been gradually worsening. Cough characteristics: productive and non productive. The maximum temperature recorded prior to his arrival was 100 to 100.9 F. Associated symptoms include chills, sweats, headaches, rhinorrhea, myalgias and shortness of breath. Pertinent negatives include no chest pain, no weight loss, no ear congestion, no ear pain, no sore throat, no wheezing and no eye redness. Treatments tried: see HPI. The treatment provided no relief. He is not a smoker. His past medical history does not include bronchitis, pneumonia, bronchiectasis, COPD, emphysema or asthma. PAST MEDICAL HISTORY Diagnosis Date Anxiety state, unspecified Asthma childhood and now seasonal Esophageal reflux Gout, unspecified Incisional hernia 02/11/2010 Lumbago Morbid obesity (HCC) Other and unspecified hyperlipidemia Pain in joint, multiple sites Personal history of tobacco use, presenting hazards to health Quit Jul 2008 Snoring Type II or unspecified type diabetes mellitus without mention of complication, not stated as uncontrolled Unspecified essential hypertension Unspecified sleep apnea On CPAP since 2004 PAST SURGICAL HISTORY Procedure Laterality Date COLONOSCOPY FLX DX W/COLLJ SPEC WHEN PFRMD 02/02/15 normal colonoscopy - 10 year follow up PAST SURGICAL HISTORY OF 2003 rt indec finger repair PAST SURGICAL HISTORY OF 2001 lumbar surgery PAST SURGICAL HISTORY OF 2004 RT ANKLE PAST SURGICAL HISTORY OF 10/11/08 Gastric bypass - return to OR for bleeding - 2L blood loss, mesenteric bleed controlled with suture. REPAIR FIRST ABDOMINAL WALL HERNIA 02/11/2010 TONSILLECTOMY & ADENOIDECTOMY AGE 10/> 1987 ALLERGIES Ibuprofen MEDICATIONS colchicine 0.6 mg tablet Take 0.6 mg by mouth. glimepiride (AMARYL) 2 mg tablet Take 2 mg by mouth once daily. metFORMIN ER (GLUCOPHAGE XR) 500 mg 24 hr tablet Take 500 mg by mouth once daily. buPROPion XL (WELLBUTRIN XL) 300 mg 24 hr tablet Take 300 mg by mouth once daily. ALLOPURINOL ORAL Take by mouth. albuterol HFA (PROVENTIL HFA, VENTOLIN HFA) 90 mcg/actuation inhaler Inhale 2 Puffs as instructed every 4 hours as needed. methylPREDNISolone (MEDROL, FELICIA,) 4 mg Dose-Pack Follow dosing instructions, take with food. benzonatate (TESSALON PERLES) 100 mg capsule Take 1 capsule by mouth three times daily as needed for cough. albuterol (PROVENTIL) 5 mg/mL nebu Inhale 0.5 mL as instructed one time only for 1 dose. 1 DOSE NOW - BACK OFFICE. PLACE 0.5 ML PER DROPPER AND 2.5 ML OF NORMAL SALINE INTO RESERVOIR. FAMILY HISTORY Problem Relation Age of Onset Ischemic Heart Disease Maternal Uncle Social History Tobacco Use Smoking status: Former Packs/day: 0.50 Years: 14.00 Pack years: 7.00 Types: Cigarettes Quit date: 08/13/2007 Years since quittin.9 Smokeless tobacco: Never Substance Use Topics Alcohol use: Yes Comment: maybe 1 drink/month Drug use: No Review of Systems Constitutional: Positive for chills, fatigue and fever. Negative for weight loss. HENT: Positive for congestion and rhinorrhea. Negative for ear pain, postnasal drip, sinus pressure, sinus pain and sore throat. Eyes: Negative for pain, discharge, redness and itching. Respiratory: Positive for cough and shortness of breath. Negative for apnea, choking, chest tightness and wheezing. Cardiovascular: Negative for chest pain, palpitations and leg swelling. Gastrointestinal: Negative for abdominal pain, diarrhea, nausea and vomiting. Musculoskeletal: Positive for myalgias. Negative for arthralgias and back pain. Skin: Negative for color change, pallor, rash and wound. Allergic/Immunologic: Negative for environmental allergies, food allergies and immunocompromised state. Neurological: Positive for headaches. Negative for dizziness and facial asymmetry. Hematological: Negative for adenopathy. Does not bruise/bleed easily. Psychiatric/Behavioral: Negative for agitation and behavioral problems. Objective BP 132/84 Pulse 96 Temp 37.9 C (100.3 F) (Tympanic) Resp 18 Wt 110 kg (242 lb 9.6 oz) SpO2 97% BMI 36.35 kg/m Physical Exam Vitals and nursing note reviewed. Constitutional: General: He is not in acute distress. Appearance: Normal appearance. He is obese. He is not ill-appearing, toxic-appearing or diaphoretic. HENT: Head: Normocephalic and atraumatic. Right Ear: External ear normal. Left Ear: External ear normal. Nose: Nose normal. No congestion or rhinorrhea. Mouth/Throat: Mouth: Mucous membranes are moist. Pharynx: Oropharynx is clear. No oropharyngeal exudate or posterior oropharyngeal erythema. Eyes: General: Right eye: No discharge. Left eye: No discharge. Extraocular Movements: Extraocular movements intact. Conjunctiva/sclera: Conjunctivae normal. Pupils: Pupils are equal, round, and reactive to light. Cardiovascular: Rate and Rhythm: Normal rate and regular rhythm. Pulses: Normal pulses. Heart sounds: Normal heart sounds. No murmur heard. No friction rub. No gallop. Pulmonary: Effort: Pulmonary effort is normal. No respiratory distress. Breath sounds: Normal breath sounds. No stridor. No wheezing, rhonchi or rales. Comments: Harsh coughing with deep inspiriation Chest: Chest wall: No tenderness. Abdominal: General: Abdomen is flat. There is no distension. Palpations: Abdomen is soft. There is no mass. Tenderness: There is no abdominal tenderness. There is no guarding or rebound. Hernia: No hernia is present. Musculoskeletal: General: No swelling, tenderness, deformity or signs of injury. Normal range of motion. Cervical back: Normal range of motion and neck supple. No rigidity or tenderness. Right lower leg: No edema. Left lower leg: No edema. Lymphadenopathy: Cervical: No cervical adenopathy. Skin: General: Skin is warm and dry. Capillary Refill: Capillary refill takes less than 2 seconds. Coloration: Skin is not jaundiced or pale. Findings: No bruising, lesion or rash. Neurological: General: No focal deficit present. Mental Status: He is alert and oriented to person, place, and time. Cranial Nerves: No cranial nerve deficit. Sensory: No sensory deficit. Motor: No weakness. Coordination: Coordination normal. Gait: Gait normal. Deep Tendon Reflexes: Reflexes normal. Psychiatric: Mood and Affect: Mood normal. Behavior: Behavior normal. Thought Content: Thought content normal. Assessment and Plan ASSESSMENT/PLAN: 1. Acute cough - ICD9: 786.2, ICD10: R05.1 (primary diagnosis) X 3 days Lungs CTA Mildly febrile, otherwise hemodynamically stable. - XR CHEST 2V FRONTAL/LAT-negative 2. URI, acute - ICD9: 465.9, ICD10: J06.9 - Discussed viral etiology and rationale for treatment. - Symptomatic treatment with prn analgesia - Supportive care with fluids and rest - The patient may also use OTC cough and cold meds as needed, warm salt water gargles, throat lozenges and/or OTC throat spray as needed, nasal saline gtts and suction prn, and RX Tessalon Perles and Medrol Dose Pack . - Follow up in 3-5 days if symptoms persist or sooner if worsening of symptoms Delores Cueva APRN.DIRECTOR OF ANESTHESIA SERVICES documented in this encounter [facility] 01-05-2022 History of Presen t illness Narrative Subjective HPI Richy Bob is a 46 year old male who presents with a cough, present for the past 5 days. He has been using cough drops and taking Mucinex at home. He has felt like he has a hard time taking a deep breath because he develops a tickle in his throat that makes him cough. He has not had a fever. He recently returned from vacation. Review of Systems Constitutional: Negative for chills and fever. HENT: Negative for congestion, ear pain and sore throat. Respiratory: Positive for cough, shortness of breath and wheezing. Negative for sputum production. Cardiovascular: Negative for chest pain. Musculoskeletal: Negative for myalgias. BP 128/84 Pulse 73 Temp 37.5 C (99.5 F) (Tympanic) Resp 16 Wt 109.8 kg (242 lb) SpO2 96% BMI 36.26 kg/m PAST MEDICAL HISTORY Diagnosis Date Anxiety state, unspecified Asthma childhood and now seasonal Esophageal reflux Gout, unspecified Incisional hernia 02/11/2010 Lumbago Morbid obesity (HCC) Other and unspecified hyperlipidemia Pain in joint, multiple sites Personal history of tobacco use, presenting hazards to health Quit Jul 2008 Snoring Type II or unspecified type diabetes mellitus without mention of complication, not stated as uncontrolled Unspecified essential hypertension Unspecified sleep apnea On CPAP since 2004 PAST SURGICAL HISTORY Procedure Laterality Date COLONOSCOPY FLX DX W/COLLJ SPEC WHEN PFRMD 02/02/15 normal colonoscopy - 10 year follow up PAST SURGICAL HISTORY OF 2003 rt indec finger repair PAST SURGICAL HISTORY OF 2001 lumbar surgery PAST SURGICAL HISTORY OF 2004 RT ANKLE PAST SURGICAL HISTORY OF 10/11/08 Gastric bypass - return to OR for bleeding - 2L blood loss, mesenteric bleed controlled with suture. REPAIR FIRST ABDOMINAL WALL HERNIA 02/11/2010 TONSILLECTOMY & ADENOIDECTOMY AGE 10/> 1987 ALLERGIES Ibuprofen MEDICATIONS albuterol HFA (PROVENTIL HFA, VENTOLIN HFA) 90 mcg/actuation inhaler Inhale 2 Puffs as instructed every 4 hours as needed. predniSONE (DELTASONE) 20 mg tablet Take 2 tablets by mouth once daily for 4 days. Take daily with food. benzonatate (TESSALON PERLE) 100 mg capsule Take 2 capsules by mouth three times daily as needed for cough for up to 10 days. albuterol (PROVENTIL) 5 mg/mL nebu Inhale 0.5 mL as instructed one time only for 1 dose. 1 DOSE NOW - BACK OFFICE. PLACE 0.5 ML PER DROPPER AND 2.5 ML OF NORMAL SALINE INTO RESERVOIR. allopurinol (ZYLOPRIM) 300 mg tablet Take 1 tablet by mouth once daily. FAMILY HISTORY Problem Relation Age of Onset Ischemic Heart Disease Maternal Uncle Social History Tobacco Use Smoking status: Former Smoker Packs/day: 0.50 Years: 14.00 Pack years: 7.00 Types: Cigarettes Quit date: 08/13/2007 Years since quittin.4 Smokeless tobacco: Never Used Substance Use Topics Alcohol use: Yes Comment: maybe 1 drink/month Drug use: No Objective Physical Exam Vitals and nursing note reviewed. Constitutional: Appearance: He is obese. HENT: Right Ear: Tympanic membrane, ear canal and external ear normal. Left Ear: Tympanic membrane, ear canal and external ear normal. Mouth/Throat: Pharynx: Uvula midline. Cardiovascular: Rate and Rhythm: Normal rate and regular rhythm. Heart sounds: Normal heart sounds. Pulmonary: Effort: Pulmonary effort is normal. No respiratory distress. Breath sounds: Examination of the right-upper field reveals wheezing. Examination of the left-upper field reveals wheezing. Examination of the right-lower field reveals wheezing. Examination of the left-lower field reveals wheezing. Wheezing present. No rales. Musculoskeletal: Cervical back: Neck supple. Lymphadenopathy: Cervical: No cervical adenopathy. Skin: General: Skin is warm and dry. Findings: No erythema or rash. Neurological: Mental Status: He is alert. ASSESSMENT/PLAN: 1. Viral bronchitis - ICD9: 466.0, ICD10: J20.8 (primary diagnosis) - PREDNISONE 20 MG TABLET 2. Acute bronchitis, unspecified organism - ICD9: 466.0, ICD10: J20.9 - ALBUTEROL SULFATE HFA 90 MCG/ACTUATION AEROSOL INHALER - BENZONATATE 100 MG CAPSULE 3. Wheezing - ICD9: 786.07, ICD10: R06.2 - ALBUTEROL SULFATE HFA 90 MCG/ACTUATION AEROSOL INHALER 4. Acute cough - ICD9: 786.2, ICD10: R05.1 - XR CHEST 2V FRONTAL/LAT- to be completed tomorrow. Will prescribe antibiotics if xray shows sign of infection. - continue Mucinex and cough drops. - COVID/influenza test collected today - Follow-up with your PCP in 3-5 days if symptoms have not improved or sooner if symptoms worsen - Discussed red flags and need for immediate medical evaluation if any occur. - Discussed supportive care treatment with fluids, rest and analgesia. - Discussed expected course of illness Natalee Yost APRN.[facility] documented in this encounter [facility] 01-05-2022 Instructions Natalee Yost APRN.[facility] - 01/05/2022 12:03 PM EDT ASSESSMENT/PLAN: 1. Viral bronchitis - ICD9: 466.0, ICD10: J20.8 (primary diagnosis) - PREDNISONE 20 MG TABLET 2. Acute bronchitis, unspecified organism - ICD9: 466.0, ICD10: J20.9 - ALBUTEROL SULFATE HFA 90 MCG/ACTUATION AEROSOL INHALER - BENZONATATE 100 MG CAPSULE 3. Wheezing - ICD9: 786.07, ICD10: R06.2 - ALBUTEROL SULFATE HFA 90 MCG/ACTUATION AEROSOL INHALER 4. Acute cough - ICD9: 786.2, ICD10: R05.1 - XR CHEST 2V FRONTAL/LAT- to be completed tomorrow. Will prescribe antibiotics if xray shows sign of infection. - continue Mucinex and cough drops. - Follow-up with your PCP in 3-5 days if symptoms have not improved or sooner if symptoms worsen - Discussed red flags and need for immediate medical evaluation if any occur. - Discussed supportive care treatment with fluids, rest and analgesia. - Discussed expected course of illness Natalee Yost APRN.CNP ACUTE BRONCHITIS: You have acute bronchitis. This means the airway passages in your lungs are inflamed. Bronchitis may be caused by viruses or bacteria. Inhaling cigarette smoke will always make it worse. Exposure to irritating chemicals or second hand smoke as well as allergies can contribute to bronchitis. Repeat episodes of bronchitis may cause lifelong lung problems. Acute bronchitis is usually treated with rest, fluids, cough medicine, and possibly antibiotics or inhaled medicine to open up the small airways. It is very important that you avoid smoke and drink increased amounts of fluids. A cool air vaporizer can help thin bronchial secretions. This makes it easier to cough and clear your chest. If you are a cigarette smoker, consider using nicotine gum or skin patches to help you withdraw. Recovery from bronchitis is often slow, but you should start feeling better after 2-3 days of treatment. Please call your doctor or return here if you have any of the following symptoms: Increased fever, chills, or chest pain. Severe shortness of breath or bloody sputum. Do not improve after 3 days of proper treatment. documented in this encounter [facility] Evaluation + Plan note Future Appointments Appointment Date:10/03/2021 09:00:00 AM Scheduled Provider:RICHY HEREDIA APRN, CNP Location:[facility] [place] Appointment Type:PC OV Follow Up [facility] Evaluation + Plan note Future Appointments Appointment Date:04/24/2022 03:00:00 PM Scheduled Provider:RICHY HEREDIA APRN, CNP Location:[facility] [place] Appointment Type:PC OV Follow Up Future Scheduled TestsMicroalbumin Level Urine 04/05/22 [facility] Evaluation + Plan note Future Appointments Appointment Date:10/30/2022 10:40:00 AM Scheduled Provider:RICHY HEREDIA APRN, CNP Location:[facility] [place] Appointment Type:PC OV Follow Up Future Scheduled TestsMicroalbumin Level Urine 04/05/22Microalbumin Level Urine 10/23/22 [facility] Evaluation + Plan note Future Appointments Appointment Date:04/30/2023 09:15:00 AM Scheduled Provider: Location:[facility] [place] Appointment Type:PC Nurse Lab Appointment Date:04/30/2023 09:20:00 AM Scheduled Provider:RICHY HEREDIA APRN, CNP Location:[facility] [place] Appointment Type:PC OV Follow Up Future Scheduled TestsSex Hormone Binding Glb 04/27/23Bioavailable Testotserone SHBG 04/27/23Estradiol Level 12/29/22Luteinizing Hormone 12/29/22Prolactin Level 12/29/22Prostate Specific Antigen 12/29/22Follicle Stimulating Hormone Level 12/29/22Microalbumin Level Urine 04/05/22Testosterone, Free and Total 04/27/23 [facility] Evaluation + Plan note Future Appointments Appointment Date:10/22/2023 09:00:00 AM Scheduled Provider: Location:[facility] [place] Appointment Type:PC Nurse Lab Appointment Date:11/05/2023 09:00:00 AM Scheduled Provider:RICHY HEREDIA APRN, CNP Location:[facility] [place] Appointment Type:PC OV Follow Up Diagnostic Tests PendingTestosterone, Free and Total 04/30/23 Future Scheduled TestsRenin, Plasma 10/30/23Iron Level 10/30/23Prostate Specific Antigen 10/30/23A1C Hemoglobin 10/30/23Complete Blood Count 10/30/23Lipid Profile 10/30/23Albumin/Creatinine Ratio, Random Urine 10/30/23PTH, Intact 10/30/23Vitamin D Level 10/30/23Complete Metabolic Panel 10/30/23TIBC 10/30/23 [facility] Evaluation + Plan note Future Appointments Appointment Date:11/05/2023 09:00:00 AM Scheduled Provider:RICHY HEREDIA APRN, CNP Location:[facility] [place] Appointment Type:PC OV Follow Up Diagnostic Tests PendingRenin Activity, Plasma 10/22/23 [facility] Evaluation + Plan note Future Appointments Appointment Date:05/05/2024 08:40:00 AM Scheduled Provider:RICHY HEREDIA APRN, CNP Location:[facility] [place] Appointment Type:PC OV Diagnostic Tests PendingRenin Activity, Plasma 04/28/24 Future Scheduled TestsThyroid Stimulating Hormone 03/04/24Free T4 04/04/24Albumin/Creatinine Ratio, Random Urine 05/06/24US Thyroid 06/04/24 [facility] Evaluation + Plan note Future Appointments Appointment Date:10/27/2024 08:30:00 AM Scheduled Provider: Location:[facility] [place] Appointment Type:PC Nurse Lab Appointment Date:11/03/2024 08:20:00 AM Scheduled Provider:RICHY HEREDIA APRN, CNP Location:[facility] [place] Appointment Type:PC OV Follow Up Future Scheduled TestsProstate Specific Antigen 11/03/24yroid Stimulating Hormone 03/04/24Thyroid Stimulating Hormone 11/03/24Free T4 04/04/24Free T4 11/03/24Uric Acid 11/03/24A1C Hemoglobin 11/03/24Complete Blood Count 11/03/24Lipid Profile 11/03/24Albumin/Creatinine Ratio, Random Urine 11/03/24Albumin/Creatinine Ratio, Random Urine 05/06/24PTH, Intact 11/03/24Vitamin D Level 11/03/24Complete Metabolic Panel 11/03/24XR Elbow Minimum 3 Views Right 05/05/24 [facility] Evaluation note Diagnosis Viral bronchitis- Primary Acute bronchitis Acute bronchitis, unspecified organism Wheezing Acute cough [facility] Acute cough- Primary URI, acute Acute upper respiratory infections of unspecified site documented in this encounter [facility] noteNo assessment information availableWClermont [facility] Work Phone: Evaluation note* Diagnosis Acute cough documented in this encounter [facility] note* Diagnosis Acute cough documented in this encounter [facility] note* Diagnosis Lower resp. tract infection- Primary Other diseases of respiratory system, not elsewhere classified documented in this encounter [facility] course Narrative No data available for this section [facility] Hospital Discharge instructions No data available for this section [facility] Progress note No data available for this section [facility] Health Concerns Infection Onset Date Last Indicated Resolved Time COVID-19 Rule-Out 01/05/2022 01/05/2022 Infection Onset Date Last Indicated Resolved Time COVID-19 Rule-Out 07/09/2022 07/09/2022 07/09/2022 8:51 PM EST Chief Complaint and Reason for Visit Chief Complaint HYPERSOMNIA Chief Complaint HYPERSOMNIA DOMITILA Family History No Family History Records Found Relationship Condition Age at Onset Recorded Date/T shani Unknown Family History?No pertinent history Unkno wn October 21, 2014 7:06pm Family History?No pertinent history Unkno wn September 11, 2020 2:10pm Advance Directives No Advanced Directives Records Found Advance Directive Response Recorded Date/ Time Advance Directives No September 11 2:10pm Living Will No September 11, 2020 2:10pm Power of Mentally Retarded Teacher No September 11 2:10pm Summary Purpose Additional Source Comments Source Comments (unrecognize d section and content) In the event this informatio n is protected by the Federal Confidentiality of Alcohol and Drug Abuse Patient Records regulations: The Federal rules restrict any use of the information to criminally investigate or prosecute any alcohol or drug abuse patient.[facility] the event this information is protected by the Federal Confidentiality of Alcohol and Drug Abuse Patient Records regulations: The Federal rules restrict any use of the information to criminally investigate or prosecute any alcohol or drug abuse patient.[facility]In the event this information is protected by the Federal Confidentiality of Alcohol and Drug Abuse Patient Records regulations: The Federal rules restrict any use of the information to criminally investigate or prosecute any alcohol or drug abuse patient.[facility] the event this information is protected by the Federal Confidentiality of Alcohol and Drug Abuse Patient Records regulations: The Federal rules restrict any use of the information to criminally investigate or prosecute any alcohol or drug abuse patient.[facility] the event this information is protected by the Federal Confidentiality of Alcohol and Drug Abuse Patient Records regulations: The Federal rules restrict any use of the information to criminally investigate or prosecute any alcohol or drug abuse patient.[facility] Reason for Visit (unrecogniz ed section and content) Reason Comments Cough cough, hard to breat h and wheezing x 4 days Reason Comments Cough Cough, congestion, c hills, BROWN x 3 days Reason Comments Cough Chest congestion, ti ghtness in chest, increasing x 2 daysStates SOB with deep breathing Care Teams (unrecognized sec tion and content) Competitive Intelligence Analyst Relationship Specialty Start Date End Date Richy Heredia CNP PCP - General Family Practice 09/02/17 Competitive Intelligence Analyst Relationship Specialty Start Date End Date Richy Heredia CNP PCP - General Family Medicine 09/02/17 Team Status: Active Member Role Status Dates Richy Heredia BRANDS EDITOR, BRANDS EDITOR-C Family Provider Activ e Richy Heredia BRANDS EDITOR, BRANDS EDITOR-C Primary Care Provider Active Team Status: Inactive Member Role Status Dates Richy Heredia BRANDS EDITOR, BRANDS EDITOR-C Primary Care Provider, Attending Provider Active Team Status: Inactive Member Role Status Dates Richy Heredia BRANDS EDITOR, BRANDS EDITOR-C Primary Care Provider, Attending Provider, Referring Provider Active Competitive Intelligence Analyst Relationship Specialty Start Date End Date Richy Heredia CNP PCP - General Family Medicine 09/02/17 Competitive Intelligence Analyst Relationship Specialty Start Date End Date Richy Heredia CNP PCP - General Family Medicine 09/02/17 Competitive Intelligence Analyst Relationship Specialty Start Date End Date Richy Heredia CNP PCP - General Family Medicine 09/02/17 Care Team (unrecognized sect ion and content) Care Team Personnel Name: RICHY HEREDIA [employer] - DIRECTOR OF ANESTHESIA SERVICES Position: P4 Advanced Practice Nurse Med Service: Employed Provider Member Role: Primary Care Physician Address: Address: [address] [place] [phone] [place] Care Team Related Persons Name: ERICH BOB Address: Home [address] [place] [phone] Address: Temporary [address] [place] [phone] Care Team Personnel Name: RICHY HEREDIA [employer] - DIRECTOR OF ANESTHESIA SERVICES Position: P4 Advanced Practice Nurse Med Service: Employed Provider Member Role: Primary Care Physician Address: Address: [address] [place] [phone] [place] Care Team Related Persons Name: ERICH BOB Address: Home [address] [place], [place] [id number] Address: Temporary [address] [place] [phone] Goals (unrecognized section and content) Goals may be documented in a n alternate section (unrecognized sect ion and content) No Status Records FoundNo Status Records FoundNo Status Records FoundNo Status Records Found INFORMATION SOURCE (unrecogn ized section and content) DATE CREATED AUTHOR 10/30/2023 [facility] DATE CREATED AUTHOR AUTHOR'S ORGANIZ ATION 11/01/2024 [facility] DATE CREATED AUTHOR AUTHOR'S ORGANIZ ATION 11/17/2024 [facility] DATE CREATED AUTHOR AUTHOR'S ORGANIZ ATION 04/29/2025 [facility] FOR RECORDS PERTAINING TO PATIENTS WHO ARE OR HAVE BEEN ENROLLED IN A CHEMICAL DEPENDENCY/SUBSTANCEABUSE PROGRAM, SOME INFORMATION MAY BE OMITTED. This clinical summary was aggregated from multiple sources. Caution should be exercised in using it in the provision of clinical care. This summary normalizes information from multiple sources, and as a consequence, information in this document may materially change the coding, format and clinical context of patient data. In addition, data may be omitted in some cases. CLINICAL DECISIONS SHOULD BE BASED ON THE PRIMARY CLINICAL RECORDS. [facility] [employer] [facility]. provides no warranty or guarantee of the accuracy or completeness of information in this document.
--- OUTSIDE RECORDS SUMMARY | 2025-05-01 10:21 | XMS RPT_ITS | CCD ---
Author Organization [facility] Care Team Providers Care Research And Evaluation Manager Name Role Phone YAN SALES TRAINING REPRESENTATIVE - YOLIS, RICHY Jain Primary Care Phys ician Yanradha LAGOS, Richy Jain Primary Care Provider Cidraradha LAGOS, Richy Jain Primary Care Provider YAN SALES TRAINING REPRESENTATIVE - [employer], RICHY Jain Attending U navailable YAN SALES TRAINING REPRESENTATIVE - LAB[employer]ER [employer], RICHY Jain Primary Care U navailable YAN SALES TRAINING REPRESENTATIVE - LAB[employer], RICHY Jain Attending U navailable YAN SALES TRAINING REPRESENTATIVE - LAB[employer], RICHY Jain Primary Care U navailable YAN SALES TRAINING REPRESENTATIVE - [employer], RICHY Jain Primary Care U navailable YAN SALES TRAINING REPRESENTATIVE - [employer], RICHY Jain Attending U navailable Yan YOLIS, Richy Jain Primary Care Provider 1( [phone] YAN SALES TRAINING REPRESENTATIVE - [employer], RICHY Jain Attending U navailable YAN SALES TRAINING REPRESENTATIVE - LAB[employer]ER [employer], RICHY Jain Primary Care U navailable YAN SALES TRAINING REPRESENTATIVE - LAB[employer], RICHY Jain Attending U navailable YAN SALES TRAINING REPRESENTATIVE - [employer], RICHY Jain Primary Care U navailable YAN SALES TRAINING REPRESENTATIVE - [employer], RICHY Jain Attending U navailable YAN SALES TRAINING REPRESENTATIVE - [employer], RICHY Jain Primary Care U navailable YAN SALES TRAINING REPRESENTATIVE - [employer], RICHY Jain Attending U navailable YAN SALES TRAINING REPRESENTATIVE - [employer], RICHY Jain Primary Care U navailable YAN SALES TRAINING REPRESENTATIVE - [employer], RICHY Jain Attending U navailable YAN SALES TRAINING REPRESENTATIVE - [employer], RICHY Jain Primary Care U navailable YAN, RICHY Jain Primary Care Unavailable ASHLYN LASSITER Attending Unavailable Yan CLEARANCE COORDINATOR, Richy Charles Referring Unav ailable Cidra CLEARANCE COORDINATOR, Richy Charles Attending Unav ailable Cidra CLEARANCE COORDINATOR, Richy Charles Primary Care Unav ailable Yan CLEARANCE COORDINATOR, Richy Charles Attending Unav ailable Yan CLEARANCE COORDINATOR, Richy Charles Primary Care Unav ailable Allergies Allergy Classification Reported Allergen(s) Allergy Type Date of Onset Reaction(s) Facility (15 sources) Ibuprofen; Translations: [ibuprofen] Drug Allergy 01-05-2022 Intolerance [facility] Medications Current Medications Medication Drug Class(es) Dates Sig (Normalized) Sig (Original) [id number] 200 actuat albuterol 0.09 mg/actuat metered dose [...] qDay, # 90 tab(s), 1 Refill(s), Pharmacy: [facility], Gout, 172, cm, 05/05/24 8:52:00 EDT, Height, kg, 05/05/24 8:52:00 EDT, Dosing Weight Start Date: 05/05/24 Status: Ordered Start: 11-05-2023 allopurinol 10 0 mg oral tablet Dose : 100 mg = 1 tab(s), Oral, qDay, # 90 tab(s), 1 Refill(s), Pharmacy: [facility], Gout, 172, cm, 11/05/23 9:05:00 EDT, Height, kg, 11/05/23 9:05:00 EDT, Dosing Weight Start Date: 11/05/23 Status: Ordered Start: 04-30-2023 End: 10-27-2023 allopurinol 300 mg oral tabl et Dose : 300 mg = 1 tab(s), Oral, qDay, # 90 tab(s), 1 Refill(s), Pharmacy: [facility], Gout, 172, cm, 04/30/23 9:23:00 EDT, Height, kg, 04/30/23 9:23:00 EDT, Dosing Weight Start Date: 04/30/23 Stop Date: 10/27/23 Status: Ordered Start: 10-30-2022 End: 04-28-2023 allopurinol 300 mg oral tabl et Dose : 300 mg = 1 tab(s), Oral, qDay, # 90 tab(s), 1 Refill(s), Pharmacy: [facility], Gout, 172, cm, 10/30/22 10:44:00 EDT, Height, kg, 10/30/22 10:44:00 EDT, Dosing Weight Start Date: 10/30/22 Stop Date: 04/28/23 Status: Ordered Start: 01-08-2015 End: 10-21-2022 allopurinol 300 mg oral tabl et Dose : 300 mg = 1 tab(s), Oral, qDay, # 90 tab(s), 1 Refill(s), Pharmacy: [facility], Gout, 172, cm, 04/24/22 14:54:00 EDT, Height, kg, 04/24/22 14:54:00 EDT, Dosing Weight Start Date: 04/24/22 Stop Date: 10/21/22 Status: Ordered ALLOPURINOL ORAL Take by mouth. Active ALLOPURINOL ORAL Take by mouth. 0 Active Comment on above: Take 1 tablet by [facility] once daily. Take by mouth. amoxicillin [...] qDay, # 90 tab(s), 1 Refill(s), Pharmacy: [facility], RENATO (generalized anxiety disorder), 172, cm, 05/05/24 8:52:00 EDT, Height, kg, 05/05/24 8:52:00 EDT, Dosing Weight Start Date: 05/05/24 Status: Ordered Start: 11-05-2023 Abilify 2 mg o ral tablet Dose : 2 mg = 1 tab(s), Oral, qDay, # 90 tab(s), 1 Refill(s), Pharmacy: [facility], RENATO (generalized anxiety disorder), 172, cm, 11/05/23 9:05:00 EDT, Height, kg, 11/05/23 9:05:00 EDT, Dosing Weight Start Date: 11/05/23 Status: Ordered Start: 03-27-2023 End: 07-29-2023 Abilify 2 mg oral tablet Dos e : 2 mg = 1 tab(s), Oral, qDay, # 90 tab(s), 1 Refill(s), Pharmacy: [facility], RENATO (generalized anxiety disorder), 172, cm, 04/30/23 9:23:00 EDT, Height, kg, 04/30/23 9:23:00 EDT, Dosing Weight Start Date: 04/30/23 Stop Date: 07/29/23 Status: Ordered Start: 09-01-2022 End: 10-31-2022 Abilify 5 mg oral tablet Dos e : 5 mg = 1 tab(s), Oral, qDay, # 30 tab(s), 1 Refill(s), Pharmacy: [facility], 172, cm, 09/01/22 10:13:00 EST, Height [...] week, # 7 cap(s), 1 Refill(s), Pharmacy: [facility], Vitamin D deficiency, 172, cm, 05/05/24 8:52:00 EDT, Height, kg, 05/05/24 8:52:00 EDT, Dosing Weight Start Date: 05/05/24 Stop Date: 11/01/24 Status: Ordered Start: 11-05-2023 End: 05-03-2024 cholecalciferol 1250 mcg (50 ,000 intl units) oral capsule Dose : 50,000 International_Unit = 1 cap(s), Oral, every other week, # 7 cap(s), 1 Refill(s), Pharmacy: [facility], Vitamin D deficiency, 172, cm, 11/05/23 9:05:00 EDT, Height, kg, 11/05/23 9:05:00 EDT, Dosing Weight Start Date: 11/05/23 Stop Date: 05/03/24 Status: Ordered Start: 04-30-2023 End: 10-27-2023 cholecalciferol 1250 mcg (50 ,000 intl units) oral capsule Dose : 50,000 International_Unit = 1 cap(s), Oral, qmonth, # 4 cap(s), 1 Refill(s), Pharmacy: [facility], Vitamin D deficiency, 172, cm, 04/30/23 9:23:00 EDT, Height, kg, 04/30/23 9:23:00 EDT, Dosing Weight Start Date: 04/30/23 Stop Date: 10/27/23 Status: Ordered Start: 02-02-2023 End: 10-27-2023 cholecalciferol 1250 mcg (50 ,000 intl units) oral capsule Dose : 50,000 International_Unit = 1 cap(s), Oral, qmonth, # 4 cap(s), 1 Refill(s), Pharmacy: [facility], Vitamin D deficiency, 172, cm, 04/30/23 9:23:00 EDT, Height, kg, 04/30/23 9:23:00 EDT, Dosing Weight Start Date: 04/30/23 Stop Date: 10/27/23 Status: Ordered citalopram 40 mg oral tablet (3 sources) Serotonin Reuptake Inhibitor Start: 04-04-2021 End: 06-30-2022 citalopram 40 mg oral tablet Dose : 40 mg = 1 tab(s), Oral, qDay, # 90 tab(s), 2 Refill(s), Pharmacy: [facility], RENATO, 172, cm, 10/03/21 9:02:00 EDT, [...] qDay, # 90 tab(s), 0 Refill(s), Pharmacy: [facility], RENATO (generalized anxiety disorder), 172, cm, 05/05/24 8:52:00 EDT, Height, kg, 05/05/24 8:52:00 EDT, Dosing Weight Start Date: 05/05/24 Status: Ordered Start: 02-23-2024 Lexapro 20 mg oral tablet Dose : 20 mg = 1 tab(s), Oral, qDay, # 90 tab(s), 0 Refill(s), Pharmacy: [facility], RENATO (generalized anxiety disorder), 172, cm, 12/03/23 8:52:00 EDT, Height, kg, 12/03/23 8:52:00 EDT, Dosing Weight Start Date: 02/23/24 Status: Ordered Start: 08-28-2023 End: 11-26-2023 Lexapro 20 mg oral tablet Do se : 20 mg = 1 tab(s), Oral, qDay, # 90 tab(s), 0 Refill(s), Pharmacy: [facility], RENATO (generalized anxiety disorder), 172, cm, 04/30/23 9:23:00 EDT, Height, kg, 04/30/23 9:23:00 EDT, Dosing Weight Start Date: 08/28/23 Stop Date: 11/26/23 Status: Ordered Start: 03-27-2023 End: 07-29-2023 Lexapro 20 mg oral tablet Do se : 20 mg = 1 tab(s), Oral, qDay, # 30 tab(s), 2 Refill(s), Pharmacy: [facility], RENATO (generalized anxiety disorder), 172, cm, 04/30/23 9:23:00 EDT, Height, kg, 04/30/23 9:23:00 EDT, Dosing Weight Start Date: 04/30/23 Stop Date: 07/29/23 Status: Ordered Start: 09-01-2022 End: 10-31-2022 Lexapro 20 mg oral tablet Do se : 20 mg = 1 tab(s), Oral, qDay, D/c Wellbutrin, # 30 tab(s), 1 Refill(s), Pharmacy: [facility], RENATO (generalized anxiety disorder), 172, cm, [...] qDay, # 90 tab(s), 1 Refill(s), Pharmacy: [facility], Iron deficiency anemia, 172, cm, 11/05/23 9:05:00 EDT, Height, kg, 11/05/23 9:05:00 EDT, Dosing Weight Start Date: 11/05/23 Stop Date: 05/03/24 Status: Ordered Start: 02-02-2023 End: 10-27-2023 ferrous sulfate 325 mg (65 m g elemental iron) oral delayed release tablet Dose : 325 mg = 1 tab(s), Oral, qDay, # 90 tab(s), 1 Refill(s), Pharmacy: [facility], Iron deficiency anemia, 172, cm, 04/30/23 9:23:00 EDT, Height, kg, 04/30/23 9:23:00 EDT, Dosing Weight Start Date: 04/30/23 Stop Date: 10/27/23 Status: Ordered glimepiride 2 mg oral tablet (12 sources) Sulfonylurea Start: 05-05-2024 End: 11-01-2024 glimepiride 2 mg oral tablet Dose : 2 mg = 1 tab(s), Oral, qDay, # 90 tab(s), 1 Refill(s), Pharmacy: [facility], DM type 2, goal HbA1c Start Date: 05/05/24 Stop Date: 11/01/24 Status: Ordered Start: 11-05-2023 End: 05-03-2024 glimepiride 2 mg oral tablet Dose : 2 mg = 1 tab(s), Oral, qDay, # 90 tab(s), 1 Refill(s), Pharmacy: [facility], DM type 2, goal HbA1c Start Date: 11/05/23 Stop Date: 05/03/24 Status: Ordered Start: 04-04-2021 End: 10-27-2023 glimepiride 2 mg oral tablet Dose : 2 mg = 1 tab(s), Oral, qDay, # 90 tab(s), 1 Refill(s), Pharmacy: [facility], DM type 2, goal HbA1c Start [...] day(s), # 7.5 mL, 1 Refill(s), Pharmacy: [facility], Seasonal allergies, 172, cm, 05/05/24 8:52:00 EDT, Height, kg, 05/05/24 8:52:00 EDT, Dosing Weight Start Date: 05/05/24 Stop Date: 07/04/24 Status: Ordered metFORMIN hydrochloride 500 mg oral tablet (12 sources) Biguanide Start: MetFORMIN (Eqv-Glucophage XR) 500 mg oral tablet, EXTENDED RELEASE Dose : 500 mg = 1 tab(s), Oral, qDay, # 90 tab(s), 1 Refill(s), Pharmacy: [facility], 172, cm, 05/05/24 8:52:00 EDT, Height, kg, 05/05/24 8:52:00 EDT, Dosing Weight Start Date: 05/05/24 Status: Ordered Start: 11-05-2023 MetFORMIN (Eqv -Glucophage XR) 500 mg oral tablet, EXTENDED RELEASE Dose : 500 mg = 1 tab(s), Oral, qDay, # 90 tab(s), 1 Refill(s), Pharmacy: [facility], 172, cm, 11/05/23 9:05:00 EDT, Height, kg, 11/05/23 9:05:00 EDT, Dosing Weight Start Date: 11/05/23 Status: Ordered Start: 04-30-2023 MetFORMIN (Eqv -Glucophage XR) 500 mg oral tablet, EXTENDED RELEASE Dose : 500 mg = 1 tab(s), Oral, qDay, # 90 tab(s), 1 Refill(s), Pharmacy: [facility], 172, cm, 04/30/23 9:23:00 EDT, Height, kg, 04/30/23 9:23:00 EDT, Dosing Weight Start Date: 04/30/23 Status: Ordered Start: 10-30-2022 MetFORMIN (Eqv -Glucophage XR) 500 mg oral tablet, EXTENDED RELEASE Dose : 500 mg = 1 tab(s), Oral, qDay, # 90 tab(s), 1 Refill(s), Pharmacy: [facility], 172, cm, 10/30/22 10:44:00 EDT, Height, kg, 04/20/23 10:44:00 EDT, Dosing Weight Start Date: 10/30/22 Status: Ordered Start: 04-24-2022 MetFORMIN (Eqv -Glucophage XR) 500 mg oral tablet, EXTENDED RELEASE Dose : 500 mg = 1 tab(s), Oral, qDay, # 90 tab(s), 1 Refill(s), Pharmacy: [facility], 172, cm, 04/24/22 14:54:00 EDT, Height, [...] qDay, # 30 tab(s), 6 Refill(s), Pharmacy: [facility], 172, cm, 10/03/21 9:02:00 EDT, Height, [...] Comment on above: Take 2 tablets by [facility] once daily for 4 days. Take daily with food. Vitamin C 500 mg oral tablet (4 sources) Start: 04-30-20 Vitamin C 500 mg oral tablet Dose : 500 mg = 1 tab(s), Oral, qDay, # 90 tab(s), 1 Refill(s), Pharmacy: [facility], Iron deficiency anemia, 172, cm, 04/30/23 9:23:00 EDT, Height, kg, 04/30/23 9:23:00 EDT, Dosing Weight Start Date: 04/30/23 Status: Ordered Start: 02-02-2023 End: 03-04-2023 Vitamin C 500 mg oral tablet Dose : 500 mg = 1 tab(s), Oral, qDay, # 90 tab(s), 1 Refill(s), Pharmacy: [facility], Iron deficiency anemia, 172, cm, 02/02/23 [...] BID, # 180 tab(s), 1 Refill(s), Pharmacy: [facility], 172, cm, 11/05/23 9:05:00 EDT, Height, [...] Test Name Value Interpretation Reference Range Facility [facility] 11-13-2024 CNOV Office Visit (UCWSTR ) RICHY BOB ([id number]) 1975 M Date Time Provider Department 11/13/24 11:15 AM ASHLYN LASSITER [facility] During your visit today, we recorded the following information about you: Temperature Pulse Respiration Blood pressure 98.7 degrees 73/minute 20/minute 141/91 Weight 113 kg Ashlyn Lassiter, SALES TRAINING REPRESENTATIVE.[employer] 11/13/2024 11:30 AM Signed This note was created using [employer]. Subjective Richy Bob is a 49 year [...] Date Reviewed: 11/13/2024 Reviewed by: Ashlyn Lassiter APRN.[employer] - Fully Assessed Reason for Visit: Cough [...] Medications D (more content not included)... Normal [facility] .Auto Diffon 10-27-2024 Basophil, Absolute 0.0 10 3/mcL Normal 0.0-0.3 [facility] Comment on above: Performed By: #### T SH, PSA, CBC, ANEU, URIC, CMP, LIPID, FT4, VIDH, A1C, GFR, ADIFF #### [address] [address] #### PTH #### [facility] [address] [place] [id number] Basophils/100 WBC (Bld) 0.4 % Normal 0.0-2.5 [facility] Comment on above: Performed By: #### T SH, PSA, CBC, ANEU, URIC, CMP, LIPID, FT4, VIDH, A1C, GFR, ADIFF #### Natasha Catarina[address] [address] #### PTH #### [address] [address] Eosinophil, Absolute 0.1 10 3/mcL Normal 0.0-0.7 [facility] Comment on above: Performed By: #### T SH, PSA, CBC, ANEU, URIC, CMP, LIPID, FT4, VIDH, A1C, GFR, ADIFF #### [address] [address] #### PTH #### [address] [address] Eosinophils/100 WBC (Bld) 0.9 % Normal 0.0-6.0 [facility] Comment on above: Performed By: #### T SH, PSA, CBC, ANEU, URIC, CMP, LIPID, FT4, VIDH, A1C, GFR, ADIFF #### [address] [address] #### PTH #### [address] [address] Lymphocyte, Absolute 2.0 10 3/mcL Normal 0.9-4.3 [facility] Comment on above: Performed By: #### T SH, PSA, CBC, ANEU, URIC, CMP, LIPID, FT4, VIDH, A1C, GFR, ADIFF #### [address] [address] #### PTH #### [address] [address] Lymphocytes/100 WBC (Bld) 30.5 % Normal 20.0-40.0 [facility] Comment on above: Performed By: #### T SH, PSA, CBC, ANEU, URIC, CMP, LIPID, FT4, VIDH, A1C, GFR, ADIFF #### [address] [address] #### PTH #### [address] [address] Monocyte, Absolute 0.3 10 3/mcL Normal 0.1-1.4 [facility] Comment on above: Performed By: #### T SH, PSA, CBC, ANEU, URIC, CMP, LIPID, FT4, VIDH, A1C, GFR, ADIFF #### [address] [address] #### PTH #### [address] [address] Monocytes/100 WBC (Bld) 4.6 % Normal 2.0-13.0 [facility] Comment on above: Performed By: #### T SH, PSA, CBC, ANEU, URIC, CMP, LIPID, FT4, VIDH, A1C, GFR, ADIFF #### [address] [address] #### PTH #### [address] [address] Neutrophils/100 WBC (Bld) 63.6 % Normal 50.0-75.0 [facility] Comment on above: Performed By: #### T SH, PSA, CBC, ANEU, URIC, CMP, LIPID, FT4, VIDH, A1C, GFR, ADIFF #### [address] [address] #### PTH #### [address] [address] .GFRon 10-27-2024 Estimated Glomerular Filtration Rate 53 ml/min/1.73sqm Normal [facility] Comment on above: Result Comment: Stages of [...] LIPID, FT4, VIDH, A1C, GFR, ADIFF #### [address] [address] #### PTH #### [address] [address] .NEUABSon 10-27-2024 Neutrophil, Absolute 4.1 10 3/mcL Normal 2.3-8.1 [facility] Comment on above: Performed By: #### T SH, PSA, CBC, ANEU, URIC, CMP, LIPID, FT4, VIDH, A1C, GFR, ADIFF #### [address] [address] #### PTH #### [address] [address] A1Con 10-27-2024 Glucose [Mass/Vol] 114 mg/dL Normal [facility] Comment on above: Result Comment: Lucero mated Average Glucose calculated by equation ((28.7xA1C)-46.7) Estimated average glucose (eAG) is a calculated value from Hemoglobin A1C and is benefits representative of the average blood glucose level in the last 2-3 month period. Normal range: less than 114 mg/dL Performed By: #### T SH, PSA, CBC, ANEU, URIC, CMP, LIPID, FT4, VIDH, A1C, GFR, ADIFF #### [address] [address] #### PTH #### [place] [address] HbA1c (Bld) [Mass fraction] 5.6 % Normal 4.3-6.4 [facility] Comment on above: Performed By: #### T SH, PSA, CBC, ANEU, URIC, CMP, LIPID, FT4, VIDH, A1C, GFR, ADIFF #### [address] [address] #### PTH #### [place] [address] CBCon 10-27-2024 Erythrocyte distribution width (RBC) [Ratio] 13.3 % Normal 11.5-15.5 [facility] Comment on above: Performed By: #### T SH, PSA, CBC, ANEU, URIC, CMP, LIPID, FT4, VIDH, A1C, GFR, ADIFF #### [place] [address] #### PTH #### [place] [address] Hematocrit (Bld) [Volume fraction] 46.7 % Normal 40.0-52.0 [facility] Comment on above: Performed By: #### T SH, PSA, CBC, ANEU, URIC, CMP, LIPID, FT4, VIDH, A1C, GFR, ADIFF #### [place] [address] #### PTH #### [place] [address] Hgb 16.2 G/dL Normal 13.0-17.5 [facility] Comment on above: Performed By: #### T SH, PSA, CBC, ANEU, URIC, CMP, LIPID, FT4, VIDH, A1C, GFR, ADIFF #### [place] [address] #### PTH #### [place] [address] MCH (RBC) [Entitic mass] 31.4 pg Normal 27.0-33.0 [facility] Comment on above: Performed By: #### T SH, PSA, CBC, ANEU, URIC, CMP, LIPID, FT4, VIDH, A1C, GFR, ADIFF #### [place] [address] #### PTH #### [place] [address] MCHC 34.7 G/dL Normal 32.0-36.0 [facility] Comment on above: Performed By: #### T SH, PSA, CBC, ANEU, URIC, CMP, LIPID, FT4, VIDH, A1C, GFR, ADIFF #### [place] [address] #### PTH #### [place] [address] MCV (RBC) [Entitic vol] 90.3 fL Normal 81.0-100.0 [facility] Comment on above: Performed By: #### T SH, PSA, CBC, ANEU, URIC, CMP, LIPID, FT4, VIDH, A1C, GFR, ADIFF #### [place] [address] #### PTH #### [place] [address] Platelet 196 10 3/mcL Normal 150-450 [facility] Comment on above: Performed By: #### T SH, PSA, CBC, ANEU, URIC, CMP, LIPID, FT4, VIDH, A1C, GFR, ADIFF #### [place] [address] #### PTH #### [place] [address] Platelet mean volume (Bld) [Entitic vol] 7.6 fL Normal 6.4-10.5 [facility] Comment on above: Performed By: #### T SH, PSA, CBC, ANEU, URIC, CMP, LIPID, FT4, VIDH, A1C, GFR, ADIFF #### [place] [address] #### PTH #### [place] [address] RBC 5.17 10 6/mcL Normal 4.50-6.00 [facility] Comment on above: Performed By: #### T SH, PSA, CBC, ANEU, URIC, CMP, LIPID, FT4, VIDH, A1C, GFR, ADIFF #### [place] [address] #### PTH #### [place] [address] WBC 6.5 10 3/mcL Normal 4.5-10.8 [facility] Comment on above: Performed By: #### T SH, PSA, CBC, ANEU, URIC, CMP, LIPID, FT4, VIDH, A1C, GFR, ADIFF #### [place] [address] #### PTH #### [address] [address] CMPon 10-27-2024 Albumin Level 3.9 G/dL Normal 3.5-5.0 [facility] Comment on above: Performed By: #### T SH, PSA, CBC, ANEU, URIC, CMP, LIPID, FT4, VIDH, A1C, GFR, ADIFF #### [place] [address] #### PTH #### [place] [address] Albumin/Globulin [Mass ratio] 1.2 {ratio} Normal 1.1-2.5 [facility] Comment on above: Performed By: #### T SH, PSA, CBC, ANEU, URIC, CMP, LIPID, FT4, VIDH, A1C, GFR, ADIFF #### [place] [address] #### PTH #### [place] [address] ALP [Catalytic activity/Vol] 91 U/L Normal 40-135 [facility] Comment on above: Performed By: #### T SH, PSA, CBC, ANEU, URIC, CMP, LIPID, FT4, VIDH, A1C, GFR, ADIFF #### [address] [address] #### PTH #### [place] [address] ALT [Catalytic activity/Vol] 20 U/L Normal 16-63 [facility] Comment on above: Performed By: #### T SH, PSA, CBC, ANEU, URIC, CMP, LIPID, FT4, VIDH, A1C, GFR, ADIFF #### [place] [address] #### PTH #### [place] [address] AST [Catalytic activity/Vol] 23 U/L Normal 10-40 [facility] Comment on above: Performed By: #### T SH, PSA, CBC, ANEU, URIC, CMP, LIPID, FT4, VIDH, A1C, GFR, ADIFF #### [place] [address] #### PTH #### [address] [address] Bili Total 0.6 mg/dL Normal 0.2-1.0 [facility] Comment on above: Result Comment: Use of this assay is not recommended for patients undergoing treatment with eltrombopag due to the potential for falsely elevated results. Performed By: #### T SH, PSA, CBC, ANEU, URIC, CMP, LIPID, FT4, VIDH, A1C, GFR, ADIFF #### [place] [address] #### PTH #### [place] [id number] BUN/Creatinine Ratio 20 ratio Normal 7-27 [facility] Comment on above: Performed By: #### T SH, PSA, CBC, ANEU, URIC, CMP, LIPID, FT4, VIDH, A1C, GFR, ADIFF #### [place] [address] #### PTH #### [place] [id number] Calcium [Mass/Vol] 8.9 mg/dL Normal 8.4-10.2 [facility] Comment on above: Performed By: #### T SH, PSA, CBC, ANEU, URIC, CMP, LIPID, FT4, VIDH, A1C, GFR, ADIFF #### [place] [address] #### PTH #### [place] [id number] Chloride [Moles/Vol] 107 mmol/L Normal 98-107 [facility] Comment on above: Performed By: #### T SH, PSA, CBC, ANEU, URIC, CMP, LIPID, FT4, VIDH, A1C, GFR, ADIFF #### [place] [address] #### PTH #### [address] [address] CO2 [Moles/Vol] 22 mmol/L Normal 22-29 [facility] Comment on above: Performed By: #### T SH, PSA, CBC, ANEU, URIC, CMP, LIPID, FT4, VIDH, A1C, GFR, ADIFF #### [address] [address] #### PTH #### [place] [address] Creatinine [Mass/Vol] 1.58 mg/dL High 0.70-1.30 [facility] Comment on above: Result Comment: Test ing performed on Siemens Dimension EXL analyzer using a modified kinetic Robert technique. Performed By: #### T SH, PSA, CBC, ANEU, URIC, CMP, LIPID, FT4, VIDH, A1C, GFR, ADIFF #### [address] [address] #### PTH #### [place] [address] Electrolyte Balance 12.0 mEq/L Normal 4.0-15.0 [facility] Comment on above: Performed By: #### T SH, PSA, CBC, ANEU, URIC, CMP, LIPID, FT4, VIDH, A1C, GFR, ADIFF #### [address] [address] #### PTH #### [place] [address] Globulin 3.3 G/dL Normal 1.5-3.8 [facility] Comment on above: Performed By: #### T SH, PSA, CBC, ANEU, URIC, CMP, LIPID, FT4, VIDH, A1C, GFR, ADIFF #### [address] [address] #### PTH #### [address] [address] Glucose [Mass/Vol] 83 mg/dL Normal 70-105 [facility] Comment on above: Performed By: #### T SH, PSA, CBC, ANEU, URIC, CMP, LIPID, FT4, VIDH, A1C, GFR, ADIFF #### [address] [address] #### PTH #### [address] [address] Potassium [Moles/Vol] 4.0 mmol/L Normal 3.5-5.1 [facility] Comment on above: Performed By: #### T SH, PSA, CBC, ANEU, URIC, CMP, LIPID, FT4, VIDH, A1C, GFR, ADIFF #### [address] [address] #### PTH #### [address] [address] Sodium [Moles/Vol] 141 mmol/L Normal 136-145 [facility] Comment on above: Performed By: #### T SH, PSA, CBC, ANEU, URIC, CMP, LIPID, FT4, VIDH, A1C, GFR, ADIFF #### [place] [address] #### PTH #### [place] [address] Total Protein 7.2 G/dL Normal 6.4-8.2 [facility] Comment on above: Performed By: #### T SH, PSA, CBC, ANEU, URIC, CMP, LIPID, FT4, VIDH, A1C, GFR, ADIFF #### [place] [address] #### PTH #### [place] [address] Urea nitrogen [Mass/Vol] 31 mg/dL High 7-18 [facility] Comment on above: Performed By: #### T SH, PSA, CBC, ANEU, URIC, CMP, LIPID, FT4, VIDH, A1C, GFR, ADIFF #### [place] [address] #### PTH #### [address] [address] FT4on 10-27-2024 Free T4 [Mass/Vol] 0.79 ng/dL Normal 0.76-1.46 [facility] Comment on above: Performed By: #### T SH, PSA, CBC, ANEU, URIC, CMP, LIPID, FT4, VIDH, A1C, GFR, ADIFF #### [address] [address] #### PTH #### [address] [address] LIPIDon 10-27-2024 Cholesterol [Mass/Vol] 165 mg/dL Normal 0-200 [facility] Comment on above: Result Comment: Chol esterol Reference Interval: Less than 200 Desirable 200-239 Borderline high risk 240 and above High risk Performed By: #### T SH, PSA, CBC, ANEU, URIC, CMP, LIPID, FT4, VIDH, A1C, GFR, ADIFF #### [address] [address] #### PTH #### [place] [address] Cholesterol in HDL [Mass/Vol] 49 mg/dL Normal 40-60 [facility] Comment on above: Performed By: #### T SH, PSA, CBC, ANEU, URIC, CMP, LIPID, FT4, VIDH, A1C, GFR, ADIFF #### [address] [address] #### PTH #### [address] [address] Cholesterol in LDL [Mass/Vol] 73 mg/dL Normal 0-130 [facility] Comment on above: Performed By: #### T SH, PSA, CBC, ANEU, URIC, CMP, LIPID, FT4, VIDH, A1C, GFR, ADIFF #### [address] [address] #### PTH #### [address] [address] Triglyceride [Mass/Vol] 214 mg/dL High 0-150 [facility] Comment on above: Result Comment: Trig lyceride Reference Interval: Less than 150 Normal 150-199 Borderline high risk 200-499 High risk 500 or higher Very high risk Performed By: #### T SH, PSA, CBC, ANEU, URIC, CMP, LIPID, FT4, VIDH, A1C, GFR, ADIFF #### [address] [address] #### PTH #### [address] [address] MALBRon 10-27-2024 U Creatinine 318.4 mg/dL Normal [facility] Comment on above: Performed By: #### T SH, PSA, CBC, ANEU, URIC, CMP, LIPID, FT4, VIDH, A1C, GFR, ADIFF #### [address] [address] #### PTH #### [address] [address] U Microalb 516.2 mg/L Normal [facility] Comment on above: Performed By: #### T SH, PSA, CBC, ANEU, URIC, CMP, LIPID, FT4, VIDH, A1C, GFR, ADIFF #### [address] [address] #### PTH #### [place] [address] U Ratio Alb/Cre 162 mg/G High 0-30 [facility] Comment on above: Performed By: #### T SH, PSA, CBC, ANEU, URIC, CMP, LIPID, FT4, VIDH, A1C, GFR, ADIFF #### [address] [address] #### PTH #### [address] [address] PSAon 10-27-2024 Prostate Specific Antigen 0.48 ng/mL Normal 0.00-4.00 [facility] Comment on above: Performed By: #### T SH, PSA, CBC, ANEU, URIC, CMP, LIPID, FT4, VIDH, A1C, GFR, ADIFF #### [address] [address] #### PTH #### [address] [address] PTHon 10-27-2024 PTH, Intact 227.0 pg/mL High 18.5-88.0 [facility] Comment on above: Performed By: #### T SH, PSA, CBC, ANEU, URIC, CMP, LIPID, FT4, VIDH, A1C, GFR, ADIFF #### [address] [address] #### PTH #### [place] [address] TSHon 10-27-2024 TSH Qn 1.72 m[IU]/L Normal 0.36-3.74 [facility] Comment on above: Performed By: #### T SH, PSA, CBC, ANEU, URIC, CMP, LIPID, FT4, VIDH, A1C, GFR, ADIFF #### [address] [address] #### PTH #### [place] [address] URICon 10-27-2024 Uric Acid Lvl 7.6 mg/dL High 3.5-7.2 [facility] Comment on above: Performed By: #### T SH, PSA, CBC, ANEU, URIC, CMP, LIPID, FT4, VIDH, A1C, GFR, ADIFF #### [address] [address] #### PTH #### [place] [address] VIDHon 10-27-2024 Vit. D 25-Hydroxy 26.4 ng/mL Normal [facility] Comment on above: Result Comment: Inte rpretive Values Based on Total 25(OH) Vitamin D: Deficient <20 ng/mL Insufficient 20 - <30 ng/mL Sufficient 30-100 ng/mL Performed By: #### T SH, PSA, CBC, ANEU, URIC, CMP, LIPID, FT4, VIDH, A1C, GFR, ADIFF #### [address] [address] #### PTH #### [place] [address] US THYROIDon 06-20-2024 US THYROID ORIGINAL EXAMINATION: ULTRASOUND OF THE THYROID WITH COLOR DOPPLER FLOW [id number] 10:03 am Ultrasound Thyroid COMPARISON: Thyroid ultrasound [...] 06/20/2024 9:50:34 AM Ordering Provider: RICHY HEREDIA [facility] Elbow min 3 Viewson 05-13-20 24 Elbow min 3 Views [facility] Imaging Services [address] [place] [address] Elbow min 3 Views MR#: [id number] Acct: [id number] Name: RICHY BOB Rep #: [id number] : 1975 M 49 From: Grayson Jolly MD PCP: KENA Campo Status: REG CLI Study: Elbow min 3 Views Date of Exam: 05/13/24 Exam# [id number] Ordering Dr: Richy Heredia NP CLEARANCE COORDINATOR-C [id number] STUDY: X-RAY - RIGHT ELBOW REASON FOR [...] at 15:44 EDT , CC: KENA Heredia Dam Operator: Signed Normal [facility] RENINon 05-03-2024 Renin Activity 0.768 ng/mL/hr Normal 0.167-5.380 [facility] Comment on above: Result Comment: This test was developed and its performance characteristics determined by [facility]. It has not been cleared or approved by the Food and Drug Administration. Performed At: [address] [id number] Felipe Pickens MD Ph:[phone] Performed By: #### T SH, PSA, CBC, ANEU, URIC, CMP, LIPID, FT4, VIDH, A1C, GFR, ADIFF #### [facility] [address] [place] [address] #### PTH #### [address] [address] .Auto Diffon 04-28-2024 Basophil, Absolute 0.0 10 3/mcL Normal 0.0-0.2 [facility] Comment on above: Performed By: #### T SH, PSA, CBC, ANEU, URIC, CMP, LIPID, FT4, VIDH, A1C, GFR, ADIFF #### [address] [address] #### PTH #### [address] [address] Basophils/100 WBC (Bld) 0.4 % Normal 0.0-2.5 [facility] Comment on above: Performed By: #### T SH, PSA, CBC, ANEU, URIC, CMP, LIPID, FT4, VIDH, A1C, GFR, ADIFF #### [address] [address] #### PTH #### [address] [address] Eosinophil, Absolute 0.1 10 3/mcL Normal 0.0-0.7 [facility] Comment on above: Performed By: #### T SH, PSA, CBC, ANEU, URIC, CMP, LIPID, FT4, VIDH, A1C, GFR, ADIFF #### [address] [address] #### PTH #### [address] [address] Eosinophils/100 WBC (Bld) 1.1 % Normal 0.0-7.0 [facility] Comment on above: Performed By: #### T SH, PSA, CBC, ANEU, URIC, CMP, LIPID, FT4, VIDH, A1C, GFR, ADIFF #### [address] [address] #### PTH #### [address] [address] Lymphocyte, Absolute 2.1 10 3/mcL Normal 0.9-4.3 [facility] Comment on above: Performed By: #### T SH, PSA, CBC, ANEU, URIC, CMP, LIPID, FT4, VIDH, A1C, GFR, ADIFF #### [address] [address] #### PTH #### [address] [address] Lymphocytes/100 WBC (Bld) 32.0 % Normal 20.0-40.0 [facility] Comment on above: Performed By: #### T SH, PSA, CBC, ANEU, URIC, CMP, LIPID, FT4, VIDH, A1C, GFR, ADIFF #### [address] [address] #### PTH #### [address] [address] Monocyte, Absolute 0.3 10 3/mcL Normal 0.1-1.4 [facility] Comment on above: Performed By: #### T SH, PSA, CBC, ANEU, URIC, CMP, LIPID, FT4, VIDH, A1C, GFR, ADIFF #### [place] [address] #### PTH #### [address] [address] Monocytes/100 WBC (Bld) 4.8 % Normal 2.0-13.0 [facility] Comment on above: Performed By: #### T SH, PSA, CBC, ANEU, URIC, CMP, LIPID, FT4, VIDH, A1C, GFR, ADIFF #### [address] [address] #### PTH #### [address] [address] Neutrophils/100 WBC (Bld) 61.7 % Normal 50.0-75.0 [facility] Comment on above: Performed By: #### T SH, PSA, CBC, ANEU, URIC, CMP, LIPID, FT4, VIDH, A1C, GFR, ADIFF #### [address] [address] #### PTH #### [address] [address] .GFRon 04-28-2024 GFR 60 ml/min/1.73sqm Normal [facility] Comment on above: Result Comment: GFR Population [...] LIPID, FT4, VIDH, A1C, GFR, ADIFF #### [address] [address] #### PTH #### [place] [address] GFR Non- 50 ml/min/1.73sqm Normal [facility] Comment on above: Result Comment: GFR Population [...] LIPID, FT4, VIDH, A1C, GFR, ADIFF #### [address] [address] #### PTH #### [address] [address] .NEUABSon 04-28-2024 Neutrophil, Absolute 4.0 10 3/mcL Normal 2.3-8.1 [facility] Comment on above: Performed By: #### T SH, PSA, CBC, ANEU, URIC, CMP, LIPID, FT4, VIDH, A1C, GFR, ADIFF #### [address] [address] #### PTH #### [address] [address] A1Con 04-28-2024 Glucose [Mass/Vol] 111 mg/dL Normal [facility] Comment on above: Result Comment: Lucero mated Average Glucose calculated by equation ((28.7xA1C)-46.7) Estimated average glucose (eAG) is a calculated value from Hemoglobin A1C and is benefits representative of the average blood glucose level in the last 2-3 month period. Normal range: less than 114 mg/dL Performed By: #### T SH, PSA, CBC, ANEU, URIC, CMP, LIPID, FT4, VIDH, A1C, GFR, ADIFF #### [place] [address] #### PTH #### [address] [address] HbA1c (Bld) [Mass fraction] 5.5 % Normal 4.3-6.4 [facility] Comment on above: Performed By: #### T SH, PSA, CBC, ANEU, URIC, CMP, LIPID, FT4, VIDH, A1C, GFR, ADIFF #### [address] [address] #### PTH #### [address] [address] CBCon 04-28-2024 Erythrocyte distribution width (RBC) [Ratio] 13.7 % Normal 11.5-15.5 [facility] Comment on above: Performed By: #### T SH, PSA, CBC, ANEU, URIC, CMP, LIPID, FT4, VIDH, A1C, GFR, ADIFF #### [place] [id number] #### PTH #### [place] [address] Hematocrit (Bld) [Volume fraction] 46.0 % Normal 40.0-52.0 [facility] Comment on above: Performed By: #### T SH, PSA, CBC, ANEU, URIC, CMP, LIPID, FT4, VIDH, A1C, GFR, ADIFF #### [place] [address] #### PTH #### [place] [address] Hgb 15.8 G/dL Normal 13.0-17.5 [facility] Comment on above: Performed By: #### T SH, PSA, CBC, ANEU, URIC, CMP, LIPID, FT4, VIDH, A1C, GFR, ADIFF #### [place] [address] #### PTH #### [place] [address] MCH (RBC) [Entitic mass] 31.5 pg Normal 27.0-33.0 [facility] Comment on above: Performed By: #### T SH, PSA, CBC, ANEU, URIC, CMP, LIPID, FT4, VIDH, A1C, GFR, ADIFF #### [place] [address] #### PTH #### [place] [address] MCHC 34.4 G/dL Normal 32.0-36.0 [facility] Comment on above: Performed By: #### T SH, PSA, CBC, ANEU, URIC, CMP, LIPID, FT4, VIDH, A1C, GFR, ADIFF #### [place] [address] #### PTH #### [place] [address] MCV (RBC) [Entitic vol] 91.7 fL Normal 81.0-100.0 [facility] Comment on above: Performed By: #### T SH, PSA, CBC, ANEU, URIC, CMP, LIPID, FT4, VIDH, A1C, GFR, ADIFF #### [place] [address] #### PTH #### [place] [address] Platelet 201 10 3/mcL Normal 150-450 [facility] Comment on above: Performed By: #### T SH, PSA, CBC, ANEU, URIC, CMP, LIPID, FT4, VIDH, A1C, GFR, ADIFF #### [place] [address] #### PTH #### [place] [address] Platelet mean volume (Bld) [Entitic vol] 7.7 fL Normal 6.4-10.5 [facility] Comment on above: Performed By: #### T SH, PSA, CBC, ANEU, URIC, CMP, LIPID, FT4, VIDH, A1C, GFR, ADIFF #### [place] [address] #### PTH #### [place] [address] RBC 5.02 10 6/mcL Normal 4.50-6.00 [facility] Comment on above: Performed By: #### T SH, PSA, CBC, ANEU, URIC, CMP, LIPID, FT4, VIDH, A1C, GFR, ADIFF #### [place] [address] #### PTH #### [place] [address] WBC 6.4 10 3/mcL Normal 4.5-10.8 [facility] Comment on above: Performed By: #### T SH, PSA, CBC, ANEU, URIC, CMP, LIPID, FT4, VIDH, A1C, GFR, ADIFF #### [place] [address] #### PTH #### [place] [address] CMPon 04-28-2024 Albumin Level 3.6 G/dL Normal 3.5-5.0 [facility] Comment on above: Performed By: #### T SH, PSA, CBC, ANEU, URIC, CMP, LIPID, FT4, VIDH, A1C, GFR, ADIFF #### [address] [address] #### PTH #### [address] [address] Albumin/Globulin [Mass ratio] 1.2 {ratio} Normal 1.1-2.5 [facility] Comment on above: Performed By: #### T SH, PSA, CBC, ANEU, URIC, CMP, LIPID, FT4, VIDH, A1C, GFR, ADIFF #### [address] [address] #### PTH #### [address] [address] ALP [Catalytic activity/Vol] 86 U/L Normal 40-135 [facility] Comment on above: Performed By: #### T SH, PSA, CBC, ANEU, URIC, CMP, LIPID, FT4, VIDH, A1C, GFR, ADIFF #### [address] [address] #### PTH #### [address] [address] ALT [Catalytic activity/Vol] 23 U/L Normal 16-63 [facility] Comment on above: Performed By: #### T SH, PSA, CBC, ANEU, URIC, CMP, LIPID, FT4, VIDH, A1C, GFR, ADIFF #### [address] [address] #### PTH #### [address] [address] AST [Catalytic activity/Vol] 18 U/L Normal 10-40 [facility] Comment on above: Performed By: #### T SH, PSA, CBC, ANEU, URIC, CMP, LIPID, FT4, VIDH, A1C, GFR, ADIFF #### [address] [address] #### PTH #### [address] [address] Bili Total 0.6 mg/dL Normal 0.2-1.0 [facility] Comment on above: Result Comment: Use of this assay is not recommended for patients undergoing treatment with eltrombopag due to the potential for falsely elevated results. Performed By: #### T SH, PSA, CBC, ANEU, URIC, CMP, LIPID, FT4, VIDH, A1C, GFR, ADIFF #### [place] [address] #### PTH #### [place] [address] BUN/Creatinine Ratio 17 ratio Normal 7-27 [facility] Comment on above: Performed By: #### T SH, PSA, CBC, ANEU, URIC, CMP, LIPID, FT4, VIDH, A1C, GFR, ADIFF #### [place] [address] #### PTH #### [place] [address] Calcium [Mass/Vol] 8.7 mg/dL Normal 8.4-10.2 [facility] Comment on above: Performed By: #### T SH, PSA, CBC, ANEU, URIC, CMP, LIPID, FT4, VIDH, A1C, GFR, ADIFF #### [place] [address] #### PTH #### [place] [address] Chloride [Moles/Vol] 106 mmol/L Normal 98-107 [facility] Comment on above: Performed By: #### T SH, PSA, CBC, ANEU, URIC, CMP, LIPID, FT4, VIDH, A1C, GFR, ADIFF #### [place] [address] #### PTH #### [place] [id number] CO2 [Moles/Vol] 25 mmol/L Normal 22-29 [facility] Comment on above: Performed By: #### T SH, PSA, CBC, ANEU, URIC, CMP, LIPID, FT4, VIDH, A1C, GFR, ADIFF #### [place] [address] #### PTH #### [place] [address] Creatinine [Mass/Vol] 1.50 mg/dL High 0.70-1.30 [facility] Comment on above: Result Comment: Test ing performed on [employer] EXL analyzer using a modified kinetic Robert technique. Performed By: #### T SH, PSA, CBC, ANEU, URIC, CMP, LIPID, FT4, VIDH, A1C, GFR, ADIFF #### [place] [address] #### PTH #### [place] [address] Electrolyte Balance 7.0 mEq/L Normal 4.0-15.0 [facility] Comment on above: Performed By: #### T SH, PSA, CBC, ANEU, URIC, CMP, LIPID, FT4, VIDH, A1C, GFR, ADIFF #### [place] [address] #### PTH #### [place] [address] Globulin 3.0 G/dL Normal [facility] Comment on above: Performed By: #### T SH, PSA, CBC, ANEU, URIC, CMP, LIPID, FT4, VIDH, A1C, GFR, ADIFF #### [place] [address] #### PTH #### [place] [address] Glucose [Mass/Vol] 105 mg/dL Normal 70-105 [facility] Comment on above: Performed By: #### T SH, PSA, CBC, ANEU, URIC, CMP, LIPID, FT4, VIDH, A1C, GFR, ADIFF #### [place] [address] #### PTH #### [place] [address] Potassium [Moles/Vol] 3.9 mmol/L Normal 3.5-5.1 [facility] Comment on above: Performed By: #### T SH, PSA, CBC, ANEU, URIC, CMP, LIPID, FT4, VIDH, A1C, GFR, ADIFF #### [address] [address] #### PTH #### [place] [address] Sodium [Moles/Vol] 138 mmol/L Normal 136-145 [facility] Comment on above: Performed By: #### T SH, PSA, CBC, ANEU, URIC, CMP, LIPID, FT4, VIDH, A1C, GFR, ADIFF #### [address] [address] #### PTH #### [place] [address] Total Protein 6.6 G/dL Normal 6.4-8.2 [facility] Comment on above: Performed By: #### T SH, PSA, CBC, ANEU, URIC, CMP, LIPID, FT4, VIDH, A1C, GFR, ADIFF #### [place] [address] #### PTH #### [place] [address] Urea nitrogen [Mass/Vol] 26 mg/dL High 7-18 [facility] Comment on above: Performed By: #### T SH, PSA, CBC, ANEU, URIC, CMP, LIPID, FT4, VIDH, A1C, GFR, ADIFF #### [place] [address] #### PTH #### [place] [address] LABORATORYOrdered By: SYSTEM SYSTEM on 04-28-2024 25-hydroxyvitamin [...] calculated value from Hemoglobin A1C and is benefits representative of the average blood glucose level [...] 04-28-2024 Cholesterol [Mass/Vol] 152 mg/dL Normal 0-200 [facility] Comment on above: Result Comment: Chol esterol Reference Interval: Less than 200 Desirable 200-239 Borderline high risk 240 and above High risk Performed By: #### T SH, PSA, CBC, ANEU, URIC, CMP, LIPID, FT4, VIDH, A1C, GFR, ADIFF #### [address] [address] #### PTH #### [place] [address] Cholesterol in HDL [Mass/Vol] 42 mg/dL Normal 40-60 [facility] Comment on above: Performed By: #### T SH, PSA, CBC, ANEU, URIC, CMP, LIPID, FT4, VIDH, A1C, GFR, ADIFF #### [address] [address] #### PTH #### [place] [address] Cholesterol in LDL [Mass/Vol] 66 mg/dL Normal 0-130 [facility] Comment on above: Performed By: #### T SH, PSA, CBC, ANEU, URIC, CMP, LIPID, FT4, VIDH, A1C, GFR, ADIFF #### [place] [address] #### PTH #### [place] [address] Triglyceride [Mass/Vol] 219 mg/dL High 0-150 [facility] Comment on above: Result Comment: Trig lyceride Reference Interval: Less than 150 Normal 150-199 Borderline high risk 200-499 High risk 500 or higher Very high risk Performed By: #### T SH, PSA, CBC, ANEU, URIC, CMP, LIPID, FT4, VIDH, A1C, GFR, ADIFF #### [place] [address] #### PTH #### [place] [address] PTHon 04-28-2024 PTH, Intact 252.7 pg/mL High 18.5-88.0 [facility] Comment on above: Performed By: #### T SH, PSA, CBC, ANEU, URIC, CMP, LIPID, FT4, VIDH, A1C, GFR, ADIFF #### [place] [address] #### PTH #### [place] [address] TSHon 04-28-2024 TSH Qn 1.89 m[IU]/L Normal 0.36-3.74 [facility] Comment on above: Performed By: #### T SH, PSA, CBC, ANEU, URIC, CMP, LIPID, FT4, VIDH, A1C, GFR, ADIFF #### [place] [address] #### PTH #### [place] [address] URICon 04-28-2024 Uric Acid Lvl 7.5 mg/dL High 3.5-7.2 [facility] Comment on above: Performed By: #### T SH, PSA, CBC, ANEU, URIC, CMP, LIPID, FT4, VIDH, A1C, GFR, ADIFF #### [address] [address] #### PTH #### [address] [address] VIDHon 04-28-2024 Vit. D 25-Hydroxy 34.5 ng/mL Normal [facility] Comment on above: Result Comment: Inte rpretive Values Based on Total 25(OH) Vitamin D: Deficient <20 ng/mL Insufficient 20 - <30 ng/mL Sufficient 30-100 ng/mL Performed By: #### T SH, PSA, CBC, ANEU, URIC, CMP, LIPID, FT4, VIDH, A1C, GFR, ADIFF #### [address] [address] #### PTH #### [address] [address] RENINon 10-28-2023 Renin Activity 1.724 ng/mL/hr Normal 0.167-5.380 [facility] ([place]) Comment on above: Result Comment: This test was developed and its performance characteristics determined by [facility]. It has not been cleared or approved by the Food and Drug Administration. Performed At: [address] [id number] Felipe Pickens MD Ph:[phone] Performed By: #### [id number] #### [address] [address] .Auto Diffon 10-22-2023 Basophil, Absolute 0.0 10 3/mcL Normal 0.0-0.2 [facility] ([place]) Comment on above: Performed By: #### M ALBR #### [address] [address] Basophils/100 WBC (Bld) 0.6 % Normal 0.0-2.5 [facility] ([place]) Comment on above: Performed By: #### M ALBR #### [address] [address] Eosinophil, Absolute 0.1 10 3/mcL Normal 0.0-0.4 [facility] ([place]) Comment on above: Performed By: #### M ALBR #### [address] [address] Eosinophils/100 WBC (Bld) 0.8 % Normal 0.0-7.0 [facility] ([place] Comment on above: Performed By: #### M ALBR #### [address] [address] Lymphocyte, Absolute 1.9 10 3/mcL Normal 0.8-3.9 [facility] ([place]) Comment on above: Performed By: #### M ALBR #### [address] [address] Lymphocytes/100 WBC (Bld) 29.9 % Normal 10.0-50.0 [facility] ([place]) Comment on above: Performed By: #### M ALBR #### [address] [address] Monocyte, Absolute 0.4 10 3/mcL Normal 0.2-1.0 [facility] ([place]) Comment on above: Performed By: #### M ALBR #### [address] [address] Monocytes/100 WBC (Bld) 5.9 % Normal 1.7-13.0 [facility] ([place]) Comment on above: Performed By: #### M ALBR #### [address] [address] Neutrophils/100 WBC (Bld) 62.8 % Normal 37.0-80.0 [facility] ([place]) Comment on above: Performed By: #### M ALBR #### [address] [address] .GFRon 10-22-2023 GFR Non- 45 ml/min/1.73sqm Normal [facility] ([place]) Comment on above: Result Comment: GFR Population [...] #### T FTEST, BTESTO, PSA, SHBG2 #### [address] [address] #### PROL, LH, E2, FSH #### [address] [address] GFR 55 ml/min/1.73sqm Normal [facility] ([place]) Comment on above: Result Comment: GFR Population [...] #### T FTEST, BTESTO, PSA, SHBG2 #### [address] [address] #### PROL, LH, E2, FSH #### [address] [address] .NEUABSon 10-22-2023 Neutrophil, Absolute 4.0 10 3/mcL Normal 2.9-6.2 [facility] ([place]) Comment on above: Performed By: #### T FTEST, BTESTO, PSA, SHBG2 #### [address] [address] #### PROL, LH, E2, FSH #### [address] [address] A1C 10-22-2023 HbA1c (Bld) [Mass fraction] 5.6 % Normal 4.3-6.4 [facility] ([place]) Comment on above: Performed By: #### T FTEST, BTESTO, PSA, SHBG2 #### [address] [address] #### PROL, LH, E2, FSH #### [address] [address] CBC 10-22-2023 Erythrocyte distribution width (RBC) [Ratio] 15.0 % High 11.5-14.5 [facility] ([place]) Comment on above: Performed By: #### M ALBR #### [address] [address] Hematocrit (Bld) [Volume fraction] 45.4 % Normal 42.0-52.0 [facility] ([place]) Comment on above: Performed By: #### M ALBR #### [address] [address] Hgb 15.8 G/dL Normal 14.0-18.0 [facility] ([place]) Comment on above: Performed By: #### M ALBR #### [address] [address] MCH (RBC) [Entitic mass] 30.6 pg Normal 27.0-31.2 [facility] ([place]) Comment on above: Performed By: #### M ALBR #### [address] [address] MCHC 34.8 G/dL Normal 31.8-35.4 [facility] ([place]) Comment on above: Performed By: #### M ALBR #### [place] [id number] MCV (RBC) [Entitic vol] 87.9 fL Normal 80.0-94.0 [facility] ([place] Comment on above: Performed By: #### M ALBR #### [address] [address] Platelet 214 10 3/mcL Normal 130-400 [facility] ([place]) Comment on above: Performed By: #### M ALBR #### [address] [address] Platelet mean volume (Bld) [Entitic vol] 7.9 fL Normal 7.4-10.4 [facility] ([place]) Comment on above: Performed By: #### M ALBR #### [address] [address] RBC 5.17 10 6/mcL Normal 4.04-6.13 [facility] ([place] Comment on above: Performed By: #### M ALBR #### [address] [address] WBC 6.3 10 3/mcL Normal 4.6-10.8 [facility] ([place] Comment on above: Performed By: #### M ALBR #### [address] [address] [facility] Albumin Level 3.6 G/dL Normal 3.5-5.0 [facility] ([place] Comment on above: Performed By: #### T FTEST, BTESTO, PSA, SHBG2 #### [address] [address] #### PROL, LH, E2, FSH #### [address] [address] Albumin/Globulin [Mass ratio] 1.1 {ratio} Normal 1.1-2.5 [facility] ([place] Comment on above: Performed By: #### T FTEST, BTESTO, PSA, SHBG2 #### [address] [address] #### PROL, LH, E2, FSH #### [address] [address] ALP [Catalytic activity/Vol] 88 U/L Normal 40-135 [facility] ([place] Comment on above: Performed By: #### T FTEST, BTESTO, PSA, SHBG2 #### [address] [address] #### PROL, LH, E2, FSH #### [address] [address] ALT [Catalytic activity/Vol] 27 U/L Normal 16-63 [facility] ([place] Comment on above: Performed By: #### T FTEST, BTESTO, PSA, SHBG2 #### [place] [address] #### PROL, LH, E2, FSH #### [place] [address] AST [Catalytic activity/Vol] 16 U/L Normal 10-40 [facility] ([place] Comment on above: Performed By: #### T FTEST, BTESTO, PSA, SHBG2 #### [place] [address] #### PROL, LH, E2, FSH #### [place] [address] Bili Total 0.8 mg/dL Normal 0.2-1.0 [facility] ([place] Comment on above: Result Comment: Use of this assay is not recommended for patients undergoing treatment with eltrombopag due to the potential for falsely elevated results. Performed By: #### T FTEST, BTESTO, PSA, SHBG2 #### [place] [address] #### PROL, LH, E2, FSH #### [place] [address] BUN/Creatinine Ratio 15 ratio Normal 7-27 [facility] ([place] Comment on above: Performed By: #### T FTEST, BTESTO, PSA, SHBG2 #### [place] [id number] #### PROL, LH, E2, FSH #### [address] [address] Calcium [Mass/Vol] 8.6 mg/dL Normal 8.4-10.2 [facility] ([place] Comment on above: Performed By: #### T FTEST, BTESTO, PSA, SHBG2 #### [place] [address] #### PROL, LH, E2, FSH #### [place] [address] Chloride [Moles/Vol] 109 mmol/L High 98-107 [facility] ([place]) Comment on above: Performed By: #### T FTEST, BTESTO, PSA, SHBG2 #### [place] [address] #### PROL, LH, E2, FSH #### [place] [address] CO2 [Moles/Vol] 22 mmol/L Normal 22-29 [facility] ([place]) Comment on above: Performed By: #### T FTEST, BTESTO, PSA, SHBG2 #### [place] [address] #### PROL, LH, E2, FSH #### [place] [address] Creatinine [Mass/Vol] 1.63 mg/dL High 0.70-1.30 [facility] ([place]) Comment on above: Performed By: #### T FTEST, BTESTO, PSA, SHBG2 #### [place] [address] #### PROL, LH, E2, FSH #### [place] [address] Electrolyte Balance 11.0 mEq/L Normal 4.0-15.0 [facility] ([place]) Comment on above: Performed By: #### T FTEST, BTESTO, PSA, SHBG2 #### [place] [address] #### PROL, LH, E2, FSH #### [address] [address] Globulin 3.2 G/dL Normal [facility] ([place] Comment on above: Performed By: #### T FTEST, BTESTO, PSA, SHBG2 #### [place] [address] #### PROL, LH, E2, FSH #### [address] [address] Glucose [Mass/Vol] 106 mg/dL High 70-105 [facility] ([place]) Comment on above: Performed By: #### T FTEST, BTESTO, PSA, SHBG2 #### [place] [address] #### PROL, LH, E2, FSH #### [place] [id number] Potassium [Moles/Vol] 4.6 mmol/L Normal 3.5-5.1 [facility] ([place] Comment on above: Performed By: #### T FTEST, BTESTO, PSA, SHBG2 #### [place] [address] #### PROL, LH, E2, FSH #### [address] [address] Sodium [Moles/Vol] 142 mmol/L Normal 136-145 [facility] ([place] Comment on above: Performed By: #### T FTEST, BTESTO, PSA, SHBG2 #### [place] [address] #### PROL, LH, E2, FSH #### [address] [address] Total Protein 6.8 G/dL Normal 6.4-8.2 [facility] ([place] Comment on above: Performed By: #### T FTEST, BTESTO, PSA, SHBG2 #### [place] [address] #### PROL, LH, E2, FSH #### [place] [address] Urea nitrogen [Mass/Vol] 24 mg/dL High 7-18 [facility] ([place] Comment on above: Performed By: #### T FTEST, BTESTO, PSA, SHBG2 #### [address] [address] #### PROL, LH, E2, FSH #### [place] [address] FEon 10-22-2023 Iron [Mass/Vol] 166 ug/dL Normal 65-175 [facility] ([place] Comment on above: Performed By: #### T FTEST, BTESTO, PSA, SHBG2 #### [address] [address] #### PROL, LH, E2, FSH #### [place] [address] IBCon 10-22-2023 TIBC 426 mcg/dL Normal 250-450 [facility] ([place] Comment on above: Performed By: #### T FTEST, BTESTO, PSA, SHBG2 #### [place] [address] #### PROL, LH, E2, FSH #### [place] [address] LABORATORYOrdered By: SYSTEM SYSTEM on 10-22-2023 25-hydroxyvitamin [...] Albumin DL <= 20 mg/L (U) [Mass/Vol] 20890 mcg/dL Invalid Interpretation Code AO ADM SS [...] 10-22-2023 Cholesterol [Mass/Vol] 151 mg/dL Normal 0-200 [facility] ([place]) Comment on above: Result Comment: Chol esterol Reference Interval: Less than 200 Desirable 200-239 Borderline high risk 240 and above High risk Performed By: #### T FTEST, BTESTO, PSA, SHBG2 #### [address] [address] #### PROL, LH, E2, FSH #### [address] [address] Cholesterol in HDL [Mass/Vol] 37 mg/dL Low 40-60 [facility] ([place] Comment on above: Performed By: #### T FTEST, BTESTO, PSA, SHBG2 #### [address] [address] #### PROL, LH, E2, FSH #### [address] [address] Cholesterol in LDL [Mass/Vol] 74 mg/dL Normal 0-130 [facility] ([place] Comment on above: Performed By: #### T FTEST, BTESTO, PSA, SHBG2 #### [address] [address] #### PROL, LH, E2, FSH #### [address] [address] Triglyceride [Mass/Vol] 198 mg/dL High 0-150 [facility] ([place] Comment on above: Result Comment: Trig lyceride Reference Interval: Less than 150 Normal 150-199 Borderline high risk 200-499 High risk 500 or higher Very high risk Performed By: #### T FTEST, BTESTO, PSA, SHBG2 #### [place] [address] #### PROL, LH, E2, FSH #### [place] [id number] MALBRon 10-22-2023 U Creatinine 175.1 mg/dL Normal 39.0-259.0 [facility] ([place] Comment on above: Performed By: #### M ALBR #### [address] [address] U Microalb [address] mcg/dL Normal [facility] ([place] Comment on above: Performed By: #### M ALBR #### [place] [address] U Ratio Alb/Cre 175 mcg/mg High 0-30 [facility] ([place] Comment on above: Performed By: #### M ALBR #### [place] [id number] PSAon 10-22-2023 Prostate Specific Antigen 0.42 ng/mL Normal 0.00-4.00 [facility] ([place] Comment on above: Performed By: #### T FTEST, BTESTO, PSA, SHBG2 #### [place] [address] #### PROL, LH, E2, FSH #### [address] [address] PTHon 10-22-2023 PTH, Intact 229.5 pg/mL High 18.5-88.0 [facility] ([place] Comment on above: Performed By: #### T FTEST, BTESTO, PSA, SHBG2 #### [place] [address] #### PROL, LH, E2, FSH #### [address] [address] VIDHon 10-22-2023 Vit. D 25-Hydroxy 28.2 ng/mL Normal [facility] ([place] Comment on above: Result Comment: Inte rpretive Values Based on Total 25(OH) Vitamin D: Deficient <20 ng/mL Insufficient 20 - <30 ng/mL Sufficient 30-100 ng/mL Performed By: #### T FTEST, BTESTO, PSA, SHBG2 #### [address] [address] #### PROL, LH, E2, FSH #### [place] [address] TFTESTon 05-12-2023 Free Testosterone 13.8 ng/dL Normal 4.26-16.4 [facility] ([place] Comment on above: Result Comment: ---- ADDITIONAL INFORMATION This test was developed and its performance characteristics determined by [facility] in a manner consistent with CLIA requirements. This test has not been cleared or approved by the U.S. Food and Drug Administration. Performed By: #### T FTEST, BTESTO, PSA, SHBG2 #### [address] [address] #### PROL, LH, E2, FSH #### [place] [address] Testoster Tot 388 ng/dL Normal 240-950 [facility] ([place] Comment on above: Result Comment: ---- ADDITIONAL INFORMATION Testing performed by Liquid Chromatography-Tandem Mass Spectrometry (LC-MS/MS). This test was developed and its performance characteristics determined by [facility] in a manner consistent with CLIA requirements. This test has not been cleared or approved by the U.S. Food and Drug Administration. Test Performed by: [facility] [address] [place] [address] [employer]: Andres Tinajero M.D. Ph.D.; CLIA# [id number] Performed By: #### T FTEST, BTESTO, PSA, SHBG2 #### [address] [address] #### PROL, LH, E2, FSH #### [address] [address] BTESTOon 05-01-2023 Albumin Lvl 4.3 G/dL Normal 3.9-4.9 [facility] ([place]) Comment on above: Result Comment: Perf ormed By: [place] [address] [employer]: Ke Lozada III, M.D. CLIA#: [id number] Performed By: #### T FTEST, BTESTO, PSA, SHBG2 #### [place] [address] #### PROL, LH, E2, FSH #### [place] [address] Sex Hormone Binding Globulin Panel 24 nmol/L Normal 14-82 [facility] ([place] Comment on above: Result Comment: Perf ormed By: [place] [address] [employer]: Ke Lozada III, M.D. CLIA#: [id number] Performed By: #### T FTEST, BTESTO, PSA, SHBG2 #### [place] [address] #### PROL, LH, E2, FSH #### [place] [address] Testo Bioavailable 212.5 ng/dL Normal 105.0-324.0 [facility] ([place]) Comment on above: Result Comment: Perf ormed By: [place] [address] [employer]: Ke Lozada III, M.D. CLIA#: [id number] Performed By: #### T FTEST, BTESTO, PSA, SHBG2 #### [address] [address] #### PROL, LH, E2, FSH #### [address] [address] Testo Percent Free 2.2 % Normal 1.1-2.6 [facility] ([place]) Comment on above: Result Comment: Perf ormed By: [place] [id number] [employer]: Ke Lozada III, M.D. CLIA#: [id number] Performed By: #### T FTEST, BTESTO, PSA, SHBG2 #### [place] [address] #### PROL, LH, E2, FSH #### [address] [address] Testosterone [Mass/Vol] 361 ng/dL Normal 193-824 [facility] ([place]) Comment on above: Result Comment: A te stosterone level in the 193-320 ng/dL range with associated clinical symptoms is considered low and may indicate hypogonadism (from [facility] 2010 363:123-135). Results >320 ng/dL are considered normal. Performed By: [place] [id number] [employer]: Ke Lozada III, M.D. CLIA#: [id number] Performed By: #### T FTEST, BTESTO, PSA, SHBG2 #### [place] [address] #### PROL, LH, E2, FSH #### [address] [address] Testosterone, Free Calculation 78.8 pg/mL Normal 38.0-120.0 [facility] ([place] Comment on above: Result Comment: Perf ormed By: [place] [id number] [employer]: Ke Lozada III, M.D. CLIA#: [id number] Performed By: #### T FTEST, BTESTO, PSA, SHBG2 #### [place] [address] #### PROL, LH, E2, FSH #### [place] [address] PULT4dk 05-01-2023 Sex Hormone Binding Globulin Panel 23 nmol/L Normal 14-82 [facility] ([place]) Comment on above: Result Comment: Perf ormed By: [facility] [employer] [address] [place] [address] [employer]: Courtney Daniel III#: [id number] Performed By: #### T FTEST, BTESTO, PSA, SHBG2 #### [place] [address] #### PROL, LH, E2, FSH #### [place] [address] E2on 04-30-2023 Estradiol Level 28.62 pg/mL Normal 0.00-39.80 [facility] ([place]) Comment on above: Result Comment: No te - New Reference Range in effect 20 Adult Female E2 Reference Ranges: Follicular phase 19.5 - 144.2 pg/mL Midcycle 63.9 - 356.7 pg/mL Luteal phase 55.8 - 214.2 pg/mL Post menopausal 0 - 33.2 pg/mL Performed By: #### T FTEST, BTESTO, PSA, SHBG2 #### [place] [address] #### PROL, LH, E2, FSH #### [place] [address] FSHon 04-30-2023 FSH 6.1 mIU/mL Normal 1.4-18.1 [facility] ([place] Comment on above: Result Comment: Adul t Female FSH Reference Ranges (06/05/99): Follicular phase 2.5 - 10.2 mIU/mL Midcycle phase 3.4 - 33.4 mIU/mL Luteal phase 1.5 - 9.1 mIU/mL Post menopausal 23.0 -116.3 mIU/mL Adult Male: 1.4 - 18.1 mIU/mL Performed By: #### T FTEST, BTESTO, PSA, SHBG2 #### [place] [id number] [place], [place] [address] #### PROL, LH, E2, FSH #### [address] [address] LABORATORYOrdered By: DAVID FEGRUSON CONTRIBUTOR_SYSTEM on 04-30-2023 Albumin Lvl 4.3 G/dL Invalid Interpretation Code AO Sendouts SS Comment on above: Result Comment: Perf ormed By: [place] [address] [employer]: Ke Lozada III, M.D. CLIA#: [id number] Sex Hormone Binding Globulin Panel 24 nmol/L Invalid Interpretation Code AO Sendouts SS Comment on above: Result Comment: Perf ormed By: [place] [address] [employer]: Ke Lozada III, M.D. CLIA#: [id number] Sex Hormone Binding Globulin Panel 23 nmol/L Invalid Interpretation Code AO Sendouts Comment on above: Result Comment: Perf ormed By: [place] [address] [employer]: Ke Lozada III, M.D. CLIA#: [id number] Testo Bioavailable 212.5 ng/dL Invalid Interpretation Code AO Sendouts SS Comment on above: Result Comment: Perf ormed By: [place] [address] [employer]: Ke Lozada III, M.D. CLIA#: [id number] Testo Percent Free 2.2 1 Invalid Interpretation Code AO Sendouts SS Comment on above: Result Comment: Perf ormed By: [place] [address] [employer]: Ke Lozada III, M.D. CLIA#: [id number] Testosterone [Mass/Vol] 361 ng/dL Invalid Interpretation Code AO Sendouts SS Comment on above: Result Comment: A te stosterone level in the 193-320 ng/dL range with associated clinical symptoms is considered low and may indicate hypogonadism (from [facility] 2010 363:123-135). Results >320 ng/dL are considered normal. Performed By: [facility] [employer] [address] [employer] [place] [id number] [employer]: Ke Lozada III, M.D. CLIA#: [id number] Testosterone, Free Calculation 78.8 pg/mL Invalid Interpretation Code AO [facility] Comment on above: Result Comment: Perf ormed By: [facility] [employer] [address] [employer] [place] [id number] [employer]: Ke Lozada III, M.D. CLIA#: [id number] LABORATORYOrdered By: SYSTEM SYSTEM on 04-30-2023 E2 [...] LHon 04-30-2023 LH 10.5 mIU/mL High 1.5-9.3 [facility] ([place] Comment on above: Result Comment: No te - New Reference Range in effect 20 Adult Female LH Reference Ranges: Follicular phase 1.9 - 12.5 mIU/mL Midcycle phase 8.7 - 76.3 mIU/mL Luteal phase 0.5 - 16.9 mIU/mL Post menopausal 5.0 - 55.2 mIU/mL Performed By: #### T FTEST, BTESTO, PSA, SHBG2 #### [place] [address] #### PROL, LH, E2, FSH #### [place] [address] PROLon 04-30-2023 Prolactin 5.7 ng/mL Normal 2.0-18.0 [facility] ([place] Comment on above: Performed By: #### T FTEST, BTESTO, PSA, SHBG2 #### [place] [address] #### PROL, LH, E2, FSH #### [place] [address] PSAon 04-30-2023 Prostate Specific Antigen 0.51 ng/mL Normal 0.00-4.00 [facility] ([place] Comment on above: Performed By: #### T FTEST, BTESTO, PSA, SHBG2 #### [place] [address] #### PROL, LH, E2, FSH #### [place] [address] .Auto Diffon 04-23-2023 Basophil, Absolute 0.0 10 3/mcL Normal 0.0-0.2 [facility] ([place]) Comment on above: Performed By: #### T FTEST, BTESTO, PSA, SHBG2 #### [place] [address] #### PROL, LH, E2, FSH #### [address] [address] Basophils/100 WBC (Bld) 0.4 % Normal 0.0-2.5 [facility] ([place]) Comment on above: Performed By: #### T FTEST, BTESTO, PSA, SHBG2 #### [place] [address] #### PROL, LH, E2, FSH #### [address] [address] Eosinophil, Absolute 0.1 10 3/mcL Normal 0.0-0.4 [facility] ([place]) Comment on above: Performed By: #### T FTEST, BTESTO, PSA, SHBG2 #### [place] [address] #### PROL, LH, E2, FSH #### [address] [address] Eosinophils/100 WBC (Bld) 1.0 % Normal 0.0-7.0 [facility] ([place]) Comment on above: Performed By: #### T FTEST, BTESTO, PSA, SHBG2 #### [place] [address] #### PROL, LH, E2, FSH #### [address] [address] Lymphocyte, Absolute 1.8 10 3/mcL Normal 0.8-3.9 [facility] ([place]) Comment on above: Performed By: #### T FTEST, BTESTO, PSA, SHBG2 #### [place] [address] #### PROL, LH, E2, FSH #### [address] [address] Lymphocytes/100 WBC (Bld) 30.4 % Normal 10.0-50.0 [facility] ([place] Comment on above: Performed By: #### T FTEST, BTESTO, PSA, SHBG2 #### [address] [address] #### PROL, LH, E2, FSH #### [address] [address] Monocyte, Absolute 0.3 10 3/mcL Normal 0.2-1.0 [facility] ([place] Comment on above: Performed By: #### T FTEST, BTESTO, PSA, SHBG2 #### [place] [address] #### PROL, LH, E2, FSH #### [address] [address] Monocytes/100 WBC (Bld) 5.2 % Normal 1.7-13.0 [facility] ([place]) Comment on above: Performed By: #### T FTEST, BTESTO, PSA, SHBG2 #### [place] [address] #### PROL, LH, E2, FSH #### [address] [address] Neutrophils/100 WBC (Bld) 63.0 % Normal 37.0-80.0 [facility] ([place]) Comment on above: Performed By: #### T FTEST, BTESTO, PSA, SHBG2 #### [address] [address] #### PROL, LH, E2, FSH #### [address] [address] .GFRon 04-23-2023 GFR 63 ml/min/1.73sqm Normal [facility] ([place]) Comment on above: Result Comment: [...] meters Performed By: #### M ALBR #### [address] [address] GFR Non- 52 ml/min/1.73sqm Normal [facility] ([place] Comment on above: Result Comment: GFR Population [...] meters Performed By: #### M ALBR #### [address] [address] .NEUABSon 04-23-2023 Neutrophil, Absolute 3.8 10 3/mcL Normal 2.9-6.2 [facility] ([place] Comment on above: Performed By: #### T FTEST, BTESTO, PSA, SHBG2 #### [address] [address] #### PROL, LH, E2, FSH #### [address] [address] A1Con 04-23-2023 HbA1c (Bld) [Mass fraction] 5.8 % Normal 4.3-6.4 [facility] ([place] Comment on above: Performed By: #### M ALBR #### [address] [address] CBCon 04-23-2023 Erythrocyte distribution width (RBC) [Ratio] 17.4 % High 11.5-14.5 [facility] ([place] Comment on above: Performed By: #### T FTEST, BTESTO, PSA, SHBG2 #### [place] [address] #### PROL, LH, E2, FSH #### [place] [address] Hematocrit (Bld) [Volume fraction] 40.5 % Low 42.0-52.0 [facility] ([place] Comment on above: Performed By: #### T FTEST, BTESTO, PSA, SHBG2 #### [place] [address] #### PROL, LH, E2, FSH #### [place] [address] Hgb 13.0 G/dL Low 14.0-18.0 [facility] ([place] Comment on above: Performed By: #### T FTEST, BTESTO, PSA, SHBG2 #### [place] [address] #### PROL, LH, E2, FSH #### [place] [address] MCH (RBC) [Entitic mass] 25.2 pg Low 27.0-31.2 [facility] ([place] Comment on above: Performed By: #### T FTEST, BTESTO, PSA, SHBG2 #### [place] [address] #### PROL, LH, E2, FSH #### [place] [address] MCHC 32.1 G/dL Normal 31.8-35.4 [facility] ([place] Comment on above: Performed By: #### T FTEST, BTESTO, PSA, SHBG2 #### [place] [address] #### PROL, LH, E2, FSH #### [place] [address] MCV (RBC) [Entitic vol] 78.5 fL Low 80.0-94.0 [facility] ([place] Comment on above: Performed By: #### T FTEST, BTESTO, PSA, SHBG2 #### [place] [address] #### PROL, LH, E2, FSH #### [place] [address] Platelet 220 10 3/mcL Normal 130-400 [facility] ([place] Comment on above: Performed By: #### T FTEST, BTESTO, PSA, SHBG2 #### [place] [address] #### PROL, LH, E2, FSH #### [place] [address] Platelet mean volume (Bld) [Entitic vol] 8.0 fL Normal 7.4-10.4 [facility] ([place] Comment on above: Performed By: #### T FTEST, BTESTO, PSA, SHBG2 #### [place] [address] #### PROL, LH, E2, FSH #### [place] [address] RBC 5.17 10 6/mcL Normal 4.04-6.13 [facility] ([place] Comment on above: Performed By: #### T FTEST, BTESTO, PSA, SHBG2 #### [place] [address] #### PROL, LH, E2, FSH #### [place] [address] WBC 6.0 10 3/mcL Normal 4.6-10.8 [facility] ([place] Comment on above: Performed By: #### T FTEST, BTESTO, PSA, SHBG2 #### [place] [address] #### PROL, LH, E2, FSH #### [place] [address] CMPon 04-23-2023 Albumin Level 3.8 G/dL Normal 3.5-5.0 [facility] ([place] Comment on above: Performed By: #### M ALBR #### [address] [address] Albumin/Globulin [Mass ratio] 1.1 {ratio} Normal 1.1-2.5 [facility] ([place] Comment on above: Performed By: #### M ALBR #### [address] [address] ALP [Catalytic activity/Vol] 73 U/L Normal 40-135 [facility] ([place] Comment on above: Performed By: #### M ALBR #### [address] [address] ALT [Catalytic activity/Vol] 24 U/L Normal 16-63 [facility] ([place] Comment on above: Performed By: #### M ALBR #### [address] [address] AST [Catalytic activity/Vol] 22 U/L Normal 10-40 [facility] ([place] Comment on above: Performed By: #### M ALBR #### [address] [address] Bili Total 0.5 mg/dL Normal 0.2-1.0 [facility] ([place] Comment on above: Result Comment: Use of this assay is not recommended for patients undergoing treatment with eltrombopag due to the potential for falsely elevated results. Performed By: #### M ALBR #### [address] [address] BUN/Creatinine Ratio 18 ratio Normal 7-27 [facility] ([place] Comment on above: Performed By: #### M ALBR #### [address] [address] Calcium [Mass/Vol] 8.4 mg/dL Normal 8.4-10.2 [facility] ([place] Comment on above: Performed By: #### M ALBR #### [address] [address] Chloride [Moles/Vol] 107 mmol/L Normal 98-107 [facility] ([place] Comment on above: Performed By: #### M ALBR #### [address] [address] CO2 [Moles/Vol] 22 mmol/L Normal 22-29 [facility] ([place] Comment on above: Performed By: #### M ALBR #### [address] [address] Creatinine [Mass/Vol] 1.44 mg/dL High 0.70-1.30 [facility] ([place] Comment on above: Performed By: #### M ALBR #### [address] [address] Electrolyte Balance 9.0 mEq/L Normal 4.0-15.0 [facility] ([place] Comment on above: Performed By: #### M ALBR #### [address] [address] Globulin 3.4 G/dL Normal [facility] ([place] Comment on above: Performed By: #### M ALBR #### [address] [address] Glucose [Mass/Vol] 99 mg/dL Normal 70-105 [facility] ([place] Comment on above: Performed By: #### M ALBR #### [address] [address] Potassium [Moles/Vol] 4.3 mmol/L Normal 3.5-5.1 [facility] ([place] Comment on above: Performed By: #### M ALBR #### [address] [address] Sodium [Moles/Vol] 138 mmol/L Normal 136-145 [facility] ([place] Comment on above: Performed By: #### M ALBR #### [address] [address] Total Protein 7.2 G/dL Normal 6.4-8.2 [facility] ([place] Comment on above: Performed By: #### M ALBR #### [address] [place], [place] [address] Urea nitrogen [Mass/Vol] 26 mg/dL High 7-18 [facility] ([place] Comment on above: Performed By: #### M ALBR #### [address] [place], [place] [address] FEon 04-23-2023 Iron [Mass/Vol] 43 ug/dL Low 65-175 [facility] ([place] Comment on above: Performed By: #### M ALBR #### [address] [place], [place] [address] IBCon 04-23-2023 TIBC 483 mcg/dL High 250-450 [facility] ([place] Comment on above: Performed By: #### M ALBR #### [address] [place], [place] [address] LABORATORYOrdered By: Rabia Gonzalez on 04-23-2023 Albumin DL <= 20 mg/L (U) [Mass/Vol] [address] mcg/dL Invalid Interpretation Code AO ADM SS [...] 04-23-2023 U Creatinine 179.8 mg/dL Normal 39.0-259.0 [facility] ([place] Comment on above: Performed By: #### M ALBR #### [address] [place], [place] [address] U Microalb [address] mcg/dL Normal [facility] ([place] Comment on above: Performed By: #### M ALBR #### [place] [id number] [place], [place] [address] U Ratio Alb/Cre 78 mcg/mg High 0-30 [facility] ([place] Comment on above: Performed By: #### M ALBR #### Natasha [address] [address] URICon 04-23-2023 Uric Acid Lvl 4.1 mg/dL Normal 3.5-7.2 [facility] ([place] Comment on above: Performed By: #### M ALBR #### Natasha [address] [address] VIDHon 04-23-2023 Vit. D 25-Hydroxy 34.8 ng/mL Normal [facility] ([place] Comment on above: Result Comment: Inte rpretive Values Based on Total 25(OH) Vitamin D: Deficient <20 ng/mL Insufficient 20 - <30 ng/mL Sufficient 30-100 ng/mL Performed By: #### M ALBR #### [address] [address] Basophil percentageOrdered B y: Richy Heredia on 01-16-2023 Cholesterol [Mass/Vol] 123 mg/dL <200 [facility] Comment on above: <200 mg/dL Desirable 200-240 mg/dL Borderline >240 mg/dL High Risk Triglyceride [Mass/Vol] 125 mg/dL <[address] [facility] Comment on above: The drugs N-Acetylcy steine and Metamizole may falsely depress this assay.Serum Triglycerides Reference Interval Normal <150 mg/dL Borderline high 150 - 199 mg/dL High 200 - 499 mg/dL Very High > or = 500 mg/dL WBC (Bld) [#/Vol] 6.9 10*3/uL 4.4-11.0 [facility] Blood erythrocytes count (nu mber/volume)Ordered By: Richy Heredia on 01-16-2023 RBC (Bld) [#/Vol] 5.32 10*6/uL 4.6-6.2 [facility] Blood hemoglobin measurement (mass/volume)Ordered By: Richy Heredia on 01-16-2023 Hemoglobin (Bld) [Mass/Vol] 13.0 g/dL 13.0-16.[address] [facility] Blood platelet mean volumeOr dered By: Richy Heredia on 01-16-2023 Platelet mean volume (Bld) [Entitic vol] 9.3 fL 6.2-12.[address] [facility] Determination of erythrocyte mean corpuscular volume (MCV)Ordered By: Ricyh Heredia on 01-16-2023 MCV (RBC) [Entitic vol] 79.5 fL 80-[address] [facility] Hematocrit Auto (Bld) [Volum e fraction]Ordered By: Richy Heredia on 01-16-2023 Hematocrit (Bld) [Volume fraction] 42.3 % 40-[address] [facility] Iron measurement (mass/mass) Ordered By: Richy Heredia on 01-16-2023 Iron (Unsp spec) [Mass/Mass] 34 ug/dL 65-[address] [facility] Laboratory - Chemistry and C hemistry - challengeOrdered By: Richy Heredia on 01-16-2023 Free T4 [Mass/Vol] 0.93 ng/dL 0.76-1.46 [facility] - Hematology and Cell countsOrdered By: Richy Heredia on 01-16-2023 Erythrocyte distribution width (RBC) [Entitic vol] 43.2 fL 35.1-43.[address] [facility] Erythrocyte distribution width (RBC) [Ratio] 15.1 % 11.6-14.[address] [facility] MCH (RBC) [Entitic mass] 24.4 pg 27.0-32.[address] [facility] MCHC Auto (RBC) [Mass/Vol]Or dered By: Richy Heredia on 01-16-2023 MCHC (RBC) [Mass/Vol] 30.7 g/dL 32-36 [facility] No Panel InformationOrdered By: Richy Heredia on 01-16-2023 Thyroid Stimulating Hormone (TSH) 1.26 uIU/mL 0.358-3.[address] [facility] Vitamin D 25-Hydroxy 30.9 ng/mL [facility] Comment on above: Vitamin D 25(OH) Sta tus Range Deficiency <20 ng/mL (50nmol/L) Insufficiency 20 - 30 ng/mL (50 - 75 nmol/L) Sufficiency 30 - 100 ng/mL (75 - 250 nmol/L) Toxicity >100 ng/mL (>250 nmol/L) Platelets bldOrdered By: Fran Heredia on 01-16-2023 Platelets (Bld) [#/Vol] 236 10*3/uL 150-[address] [facility] Serum or plasma cholesterol in HDL measurement (mass/volume)Ordered By: Richy Heredia on 01-16-2023 Cholesterol in HDL [Mass/Vol] 31 mg/dL >[address] [facility] Comment on above: The drugs N-Acetylcy steine and Metamizole may falsely depress this assay. Reference Range HDL <40 mg/dL Low HDL Cholesterol HDL >or= 60 mg/dL High HDL Cholesterol Serum or plasma cholesterol in VLDL measurement (mass/volume)Ordered By: Richy Heredia on 01-16-2023 Cholesterol in VLDL [Mass/Vol] 25 mg/dL 5-[address] [facility] Serum or plasma low density lipoprotein (LDL) cholesterol measurement (mass/volume)Ordered By: Richy Heredia on 01-16-2023 Cholesterol in LDL [Mass/Vol] 67 mg/dL 0-[address] [facility] Thin prep Papanicolaou smear with manual screeningOrdered By: Richy Heredia on 01-16-2023 Thin prep Papanicolaou smear with manual screening 158.0 mg/L NO RANGE EST. [facility] LABORATORYOrdered By: SYSTEM SYSTEM on 10-23-2022 Albumin [...] Age >=41 years: 2.5-45.1 pg/mL Performed By: [facility] [place] [address] Cook Helper Meat: Ke Lozada III, M.D. CLIA#: [id number] Patient Upright or Supine Unknown Invalid Interpretation Code AO Sendouts SS Comment on above: Result Comment: Perf ormed By: [facility] [employer] [place] [id number] [employer] Hel[employer] Meat: Ke Lozada III, M.D. CLIA#: [id number] Influenza virus A and B RNA and SARS-CoV-2 (COVID-19) N gene panel YANET+probe (Resp)on 07-09-2022 FLUAV RNA YANET+probe Ql (Unsp spec) Positive Abnormal Negative for Influenza A by RT-PCR [facility] FLUBV RNA YANET+probe Ql (Unsp spec) Negative Negative for Influenza B by RT-PCR [facility] SARS-CoV-2 (COVID-19) RNA YANET+probe Ql (Resp) SARS-CoV-2 (Agent of COVID-19) Not Detected by RT-PCR or equivalent method. Not Detected [facility] XR CHEST 2V FRONTAL/LATon [facility] XR Chest PA and Lateralon IMPRESSION: No acute radiographic abnormality. Dam Operator: PSCB Transcribe Date/Time: Jul 09 2022 10:07A Dictated by : CHIN VOGEL MD This examination was interpreted and the report reviewed and electronically signed by: CHIN VOGEL MD on Jul 09 2022 10:10AM [facility] DIVISION OF RADIOLOGY * * *Final Report* [...] soft tissues: Unremarkable. DIVISION OF RADIOLOGY Provider, [facility] - 07/09/2022 * * *Final Report* * [...] Unremarkable. IMPRESSION IMPRESSION: No acute radiographic abnormality. Dam Operator: YOLANDA Transcribe Date/Time: Jul 09 2022 10:07A Dictated by : CHIN VOGEL MD This examination was interpreted and the report reviewed and electronically signed by: CHIN VOGEL MD on Jul 09 2022 10:10AM EST [facility] Radiology Study observation (narrative) [facility] XR Chest PA and LateralOrder ed By: Ccbaltazar Provider on 07-09-2022 [facility] LABORATORYOrdered By: Jovi Valdivia on 04-10-2022 [...] Age >=41 years: 2.5-45.1 pg/mL Performed By: [facility] [address] [place] [id number] [employer] Hel[employer] Meat: Ke Lozada III, M.D. CLIA#: [id number] Patient Upright or Supine Upright Invalid Interpretation Code AO Sendouts SS Comment on above: Result Comment: Perf ormed By: [facility] [employer] [address] [place] [id number] [employer]: Ke Lozada III, M.D. CLIA#: [id number] LABORATORYOrdered By: SYSTEM SYSTEM on 04-10-2022 GFR 65 ml/min/1.73sqm Invalid Interpretation Code AO Chemistry S GFR Non- 54 ml/min/1.73sqm Invalid Interpretation Code AO Chemistry S Parathyrin.intact [Mass/Vol] 152.6 pg/mL Invalid Interpretation Code 18.5 - 88.0 pg/mL AH ADM SS XR Chest PA and Lateralon IMPRESSION: Low lung volumes. No acute radiographic abnormality. Dam Operator[facility] Transcribe Date/Time: Jan 06 2022 3:59P Dictated [...] Low lung volumes. No acute radiographic abnormality. 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[employer] Work Phone: [facility] 11-13-2024 11:19-0400 Body temperature 98.71 [degF] Ashlyn Moomaw SALES TRAINING REPRESENTATIVE.[employer] Work Phone: [facility] 11-13-2024 11:19-0400 Body weight 113 kg Ashlyn Moomaw SALES TRAINING REPRESENTATIVE.[employer] Work Phone: [facility] 11-13-2024 11:19-0400 Diastolic blood pressure 91 mm[Hg] Ashlyn Moomaw SALES TRAINING REPRESENTATIVE.[employer] Work Phone: [facility] 11-13-2024 11:19-0400 Heart rate 73 /min Ashlyn Moomaw SALES TRAINING REPRESENTATIVE.[employer] Work Phone: [facility] 11-13-2024 11:19-0400 Respiratory rate 20 /min Ashlyn Moomaw SALES TRAINING REPRESENTATIVE.[employer] Work Phone: [facility] 11-13-2024 11:19-0400 SaO2% (BldA) [Mass fraction] 96 % Ashlyn Moomaw SALES TRAINING REPRESENTATIVE.[employer] Work Phone: [facility] 11-13-2024 11:19-0400 Systolic blood pressure 141 mm[Hg] Ashlyn Moomaw SALES TRAINING REPRESENTATIVE.[employer] Work Phone: [facility] 07-09-2022 09:31-0500 Body temperature 100.29 [degF] Delores Cueva SALES TRAINING REPRESENTATIVE.[employer] Work Phone: [facility] 07-09-2022 09:31-0500 Body weight 110.04 kg Delores Cueva SALES TRAINING REPRESENTATIVE.[employer] Work Phone: [facility] 07-09-2022 09:31-0500 Diastolic blood pressure 84 mm[Hg] Delores Cueva SALES TRAINING REPRESENTATIVE.[employer] Work Phone: [facility] 07-09-2022 09:31-0500 Heart rate 96 /min Delores Cueva SALES TRAINING REPRESENTATIVE.[employer] Work Phone: [facility] 07-09-2022 09:31-0500 Respiratory rate 18 /min Delores Cueva SALES TRAINING REPRESENTATIVE.[employer] Work Phone: [facility] 07-09-2022 09:31-0500 SaO2% (BldA) [Mass fraction] 97 % Delores Cueva SALES TRAINING REPRESENTATIVE.[employer] Work Phone: [facility] 07-09-2022 09:31-0500 Systolic blood pressure 132 mm[Hg] Delores Cueva SALES TRAINING REPRESENTATIVE.[employer] Work Phone: [facility] 01-05-2022 11:47-0400 Body temperature 99.5 [degF] Natalee Praisler-Wood SALES TRAINING REPRESENTATIVE.[employer] Work Phone: [facility] 01-05-2022 11:47-0400 Body weight 109.77 kg Natalee Praisler-Wood SALES TRAINING REPRESENTATIVE.[employer] Work Phone: [facility] 01-05-2022 11:47-0400 Diastolic blood pressure 84 mm[Hg] Natalee Praisler-Wood SALES TRAINING REPRESENTATIVE.[employer] Work Phone: [facility] 01-05-2022 11:47-0400 Heart rate 73 /min Natalee Praisler-Wood SALES TRAINING REPRESENTATIVE.[employer] Work Phone: [facility] 01-05-2022 11:47-0400 Respiratory rate 16 /min Natalee Praisler-Wood SALES TRAINING REPRESENTATIVE.[employer] Work Phone: [facility] 01-05-2022 11:47-0400 SaO2% (BldA) [Mass fraction] 96 % Natalee Praisler-Wood SALES TRAINING REPRESENTATIVE.[employer] Work Phone: [facility] 01-05-2022 11:47-0400 Systolic blood pressure 128 mm[Hg] Natalee Praisler-Wood SALES TRAINING REPRESENTATIVE.[employer] Work Phone: [facility] Encounters Encounter Date Encounter Type Care Provider Facility Start: 04-27-2025 ambulatory Richy Heredia CLEARANCE COORDINATOR Facility:[facility] Start: 11-13-2024 End: 11-13-2024 Patient encounter procedure Ashlyn Lassiter SALES TRAINING REPRESENTATIVE.[employer] Work Phone: [facility] Comment on above: Lower resp. tract in fection (Primary Dx) Start: 11-13-2024 End: 11-13-2024 ambulatory RICHY HEREDIA Facility:[facility] Start: 10-27-2024 End: 10-31-2024 ambulatory RICHY HEREDIA SALES TRAINING REPRESENTATIVE - [employer] Facility:[facility] Start: 07-08-2024 ambulatory RICHY PETERSON SALES TRAINING REPRESENTATIVE - [employer] Facility:[facility] Start: 06-28-2024 ambulatory RICHY PETERSON SALES TRAINING REPRESENTATIVE - [employer] Facility:[facility] Start: 06-16-2024 End: 06-16-2024 ambulatory RICHY HEREDIA SALES TRAINING REPRESENTATIVE - [employer] Facility:[facility] Start: 06-16-2024 End: 06-16-2024 Patient encounter procedure RICHY HEREDIA SALES TRAINING REPRESENTATIVE - [employer] [facility] Start: 05-13-2024 End: 05-13-2024 ambulatory Richy Heredia CLEARANCE COORDINATOR Facility:[facility] Start: 04-28-2024 End: 05-02-2024 ambulatory RICHY HEREDIA SALES TRAINING REPRESENTATIVE - [employer] Facility:[facility] Start: 04-28-2024 End: 05-02-2024 Outreach Lab RICHY HEREDIA SALES TRAINING REPRESENTATIVE - [employer] [facility] Start: 10-22-2023 End: 10-27-2023 ambulatory RICHY HEREDIA SALES TRAINING REPRESENTATIVE - [employer] Facility:[facility] Start: 10-22-2023 End: 10-26-2023 Outreach Lab RICHY HEREDIA SALES TRAINING REPRESENTATIVE - [employer] [facility] Start: 04-30-2023 End: 05-05-2023 ambulatory RICHY HEREDIA SALES TRAINING REPRESENTATIVE - [employer] Facility:[facility] Start: 04-30-2023 End: 05-04-2023 Outreach Lab RICHY Jain YAN SALES TRAINING REPRESENTATIVE - [employer] [facility] Start: 04-23-2023 End: 04-28-2023 ambulatory RICHY Susy YAN SALES TRAINING REPRESENTATIVE - [employer] Facility:[facility] Start: 04-23-2023 End: 04-27-2023 Outreach Lab RICHY Jain YAN SALES TRAINING REPRESENTATIVE - [employer] [facility] Start: 01-16-2023 End: 01-16-[address] [facility] Work Phone: Start: 01-16-2023 End: 01-16-2023 Patient encounter procedure [facility] Work Phone: Start: 12-11-2022 End: 12-11-[address] [facility] Work Phone: Start: 12-11-2022 End: 12-11-2022 Patient encounter procedure [facility] Start: 11-17-2022 End: 11-17-[address] [facility] Work Phone: Start: 11-17-2022 End: 11-17-2022 Patient encounter procedure [facility] Start: 10-23-2022 End: 10-27-2022 Outreach Lab RICHY Jain YAN SALES TRAINING REPRESENTATIVE - [employer] [facility] Start: 07-09-2022 End: 07-09-2022 Subsequent hospital visit by physician Xr [facility] Work Phone: Radiology Comment on above: Acute cough [R05.1] Start: 07-09-2022 End: 07-09-2022 Patient encounter procedure Delores Cueva SALES TRAINING REPRESENTATIVE.[employer] Work Phone: [facility] Comment on above: Acute cough (Primary Dx); URI, acute Start: 04-10-2022 End: 04-14-2022 Outreach Lab RICHY HEREDIA SALES TRAINING REPRESENTATIVE - [employer] [facility] Start: 04-10-2022 End: 04-14-2022 Outreach Lab RICHY HEREDIA APRN - [employer] [facility] Start: 01-06-2022 End: 01-06-2022 Subsequent hospital visit by physician Xr [facility] [place] Work Phone: Radiology Comment on above: Acute cough [R05.1] Start: 01-05-2022 End: 01-05-2022 Patient encounter procedure Natalee Yost APRN.[employer] [facility] Comment on above: Viral bronchitis (Pr imary Dx); Acute bronchitis, unspecified organism; Wheezing; Acute cough Start: 10-02-2021 End: 10-02-2021 Patient encounter procedure RICHY HEREDIA APRN - [employer] [facility] Procedures Date Procedure Procedure Detail Performing Clinician Start: 07-09-2022 COVID WITH FLUA+B, ROUTINE Delores Cueva SALES TRAINING REPRESENTATIVEJORDAN Work Phone: Start: 07-09-2022 Radiologic exam ches t 2 views Delores Cueva SALES TRAINING REPRESENTATIVE.[employer] Work Phone: Start: 01-06-2022 Radiologic exam ches t 2 views Natalee Yost SALES TRAINING REPRESENTATIVE.[employer] Work Phone: Start: 02-02-2015 Colonoscopy Natalee Olmos SALES TRAINING REPRESENTATIVE.[employer] Work Phone: Plan of Treatment Date Care Activity Detail Author Start: 03-13-2025 Influenza vaccination Influenz a Vaccine (Season Ended) [facility] Start: 02-02-2025 Colonoscopy COLONOSCOPY [facility] Start: 02-02-2025 COLORECTAL CANCER SCREENING COLORECTAL CANCER SCREENING [facility] Start: 02-02-2025 Screening for malign ant neoplasm of colon [facility] Start: 03-13-2024 Covid-19 Vaccine ( season) Covid-19 Vaccine ( season) [facility] Start: 03-13-2024 Influenza vaccination Influenza Vacc ine (#1) [facility] Start: 2023 Shingrix Vaccine (1 of 2) Shingrix Vaccine (1 of 2) [facility] Start: 07-13-2022 DEPRESSION ASSESSMENT DEPRESSION ASS ESSMENT [facility] Start: 03-13-2022 Influenza vaccination [facility] Start: 01-05-2022 End: 01-19-2022 Influenza virus A and B RNA and SARS-CoV-2 (COVID-19) N gene panel - Respiratory specimen by YANET with probe detection COVID WITH FLUA+B, ROUTINE Microbiology Routine Viral bronchitis Expected: 01/05/2022, Expires: 01/19/2022 [facility] Work Phone: Comment on above: Expected: 01/05/2022 , Expires: 01/19/2022 Start: 2018 COLOGUARD (FIT-DNA) COLOGUARD (FIT-D NA) [facility] Start: [address] COLONOGRAPHY [facility] Start: 2018 FECAL OCCULT BLOOD FECAL OCCULT BLOO D [facility] Start: 2018 Screening for malign ant neoplasm of colon [facility] Start: 2018 SIGMOIDOSCOPY SIGMOIDOSCOPY [facility] Start: 08-10-2009 Hepatitis B screening URINE ALBUMIN:CREATININE RATIO [facility] Start: 08-10-2009 Hepatitis B surface antibody level LDL CHOLESTEROL [facility] Start: 11-08-2008 Hemoglobin A1c measurement HbA1C [facility] Start: 11-08-2008 Hemoglobin A1c/Hemoglobin.total in Blood HBA1C [facility] Start: 1992 HEPATITIS B (1 of 3 - Risk 3-dose series) HEPATITIS B (1 of 3 - Risk 3-dose series) [facility] Start: 1992 Hepatitis B Vaccine (1 of 3 - 19+ 3-dose series) Hepatitis B Vaccine (1 of 3 - 19+ 3-dose series) [facility] Start: 1992 Pneumococcal Vaccine : 50+ (1 of 2 - PCV) Pneumococcal Vaccine: 50+ (1 of 2 - PCV) [facility] Start: 1992 Urine microalbumin profile [facility] Start: 1991 ANNUAL PCP TEAM FUGITIVE INVESTIGATOR ISAEL DISEASE VISIT ANNUAL PCP TEAM CHRONIC DISEASE VISIT [facility] Start: 1991 Anxiety Screening Anxiety Screening [facility] Start: 1991 BP CONTROLLED (<130/80) BP CONTROLLE D (<130/80) [facility] Start: 1991 Depression Screening Depression Scre ening [facility] Start: 1991 HEPATITIS C SCREENING HEPATITIS C [facility] Start: 1991 Hepatitis C screening Hepatitis C [facility] Start: 1991 HIV SCREENING HIV SCREENING [facility] Start: 1991 HIV screening HIV Screening [facility] Start: 1985 Adult depression screening assessment DEPRESSION SCREENING [facility] Start: 1983 3 comp foot exam completed DIABETIC FOOT EXAM [facility] Start: 1983 Diabetic foot examination Diabetic Foot Exam [facility] Start: 1983 Glaucoma screening Dilated Retinal E xam [facility] Start: 1983 Hepatitis B screening Urine Albumin:Creatinine Ratio [facility] Start: 1983 Hepatitis C antibody , confirmatory test DILATED RETINAL EXAM [facility] Start: 1979 PNEUMOCOCCAL (1 - PCV) PNEUMOCOCCAL (1 - PCV) [facility] Start: 1979 Pneumococcal vaccination Pneum ococcal Vaccine (1 of 2 - PCV) [facility] Start: 1978 COVID-19 VACCINE (#1) COVID-19 VACCI NE (#1) [facility] Start: 1973 COVID-19 VACCINE (#1) COVID-19 VACCI NE (#1) [facility] Start: 1973 HEPATITIS B (1 of 3 - 3-dose series) HEPATITIS B (1 of 3 - 3-dose series) [facility] End: 02-04-2023 Radiologic exam chest 2 views XR CHEST 2V FRONTAL/LAT Radiology STAT Acute cough 1 Occurrences starting 01/05/2022 until 02/04/2023 [facility] Work Phone: Comment on above: 1 Occurrences starti ng 01/05/2022 until 02/04/2023 Payers Date Payer Category Payer Self-pay [id number] 2021 Medicaid MEDICAID [facility] MEDICAID [id number] 2021-Present [phone] [address] [place] [address] Medicaid [id number] 2021 Medicaid [id number] 2014 Unknown [id number] 1973 Unknown [id number] 1973 Unknown [id number] 1973 Unknown [id number] 1973 Unknown [id number] 1973 Unknown [id number] 1973 Unknown [id number] 1973 Unknown [id number] 1973 Unknown [id number] Unknown SCOTTY [id number] Unknown [id number] Unknown [id number] Social History Date Type Detail Facility Start: 03-29-2019 End: 11-13-2024 Ex-smoker (finding) [facility] Comment on above: No smoke exposure Start: 1975 Sex Assigned At Male A [facility] Start: 08-13-1993 End: 08-13-2007 History of tobacco use Current smoker [facility] Start: 08-13-1993 End: 08-13-2007 History of tobacco use Cigarette Smoker [facility] Start: 01-05-2022 End: 11-13-2024 Alcohol intake Current drinker of alcohol (finding) [facility] Start: 01-08-2015 History SDOH Alcohol Comment maybe 1 drink/month [facility] Start: 1975 Sex Assigned At Not on file [facility] Start: 12-26-2021 End: 01-05-2022 Exposure to SARS-CoV-2 (event) Not sure [facility] Start: 06-17-2020 End: 07-09-2022 Cigarettes smoked current (pack per day) - Reported 0.5 [facility] Start: 07-09-2022 End: 11-13-2024 Tobacco use and exposure Smokeless tobacco non-user [facility] Start: 09-11-2020 [facility] Start: 04-02-2021 Occasional [facility] Start: 10-21-2014 None [facility] Start: 10-21-2014 Non-smoker [facility] Start: 06-17-2020 End: 07-09-2022 Tobacco use panel [facility] National Score (1-10 0), lower number is lower risk Not on file [facility] Functional Status Date Assessment Result Facility 02-09-2015 Are you deaf, or do you have serious difficulty hearing No 02/09/2015 8:21 AM Caterina Crawley MA No [facility] 02-09-2015 Are you blind, or do you have serious difficulty seeing, even when wearing glasses No 02/09/2015 8:21 AM Caterina Crawley MA No [facility] 02-09-2015 Do you have serious difficulty walking or climbing stairs No 02/09/2015 8:21 AM EDT Caterina Gonzalez MA No [facility] 02-09-2015 Do you have difficul ty dressing or bathing No 02/09/2015 8:21 AM EDT Carlos, CaterinaERICA sharif No [facility] 02-09-2015 Because of a physica l, mental, or emotional condition, do you have difficulty doing errands alone such as visiting a physician's office or shopping No 02/09/2015 8:21 AM EDT Jennifer Gonzalezanda ERICA No [facility] Mental Status Date Assessment Result Facility 02-09-2015 Because of a physica l, mental, or emotional condition, do you have serious difficulty concentrating, remembering, or making decisions No 02/09/2015 8:21 AM EDT Caterina Gonzalez ERICA No [facility] Clinical Notes 01-05-2022 to 11-13-2024 Ashlyn Lassiter APRN.[employer] - 11/13/2024 11:22 AM EDTAddendum Note - Delores Cueva APRN.[employer] - 07/09/2022 11:16 AM Renetta Brewer RT(Iris) - 07/09/2022 10:00 AM ESTPatient InstructionsLaboratory Note Date & Type Note Facility 11-13-2024 Note HNO ID: [id number] Author: ASHLYN LASSITER APRN.[employer] Service: ? Author Type: Nurse Practitioner Type: [...] - BENZONATATE 100 MG CAPSULE Ashlyn Lassiter APRN.[facility] 11-13-2024 History of Presen t illness Narrative This note was created using [employer]. Subjective Richy Bob is a 49 year [...] Ashlyn Lassiter APRN.YOLIS documented in this encounter [facility] 07-09-2022 Miscellaneous Notes Addended by: DELORES CUEVA on: 07/09/2022 11:16 AM Modules accepted: Orders documented in this encounter [facility] 07-09-2022 History of Presen t illness [...] 2022 9:53 AM documented in this encounter [facility] 07-09-2022 History of Presen t illness Narrative This note was created using [employer]. Subjective Richy Bob is a 47 year old male. 47 year old male with PMH HTN, DM and sleep apnea presents for illness. Acute onset 07/06/22 +cough harsh and intermittent between dry and productive. +congestion +chills +headache +diarrhea +fever 100.3 Denies N/V Denies tobacco usage. Has used Mucinex Robitussin and Delsym They had left over [employer] that seemed to help. They are scheduled to leave to go out of town tomorrow. The history is provided by the patient. No language specialist was used. Cough This is a new [...] sooner if worsening of symptoms Delores Cueva APRN.[employer] documented in this encounter [facility] 01-05-2022 History of Presen t illness [...] Natalee Yost APRN.[facility]OLIS documented in this encounter [facility] 01-05-2022 Instructions Natalee Yost APRN.YOLIS - [...] of proper treatment. documented in this encounter [facility] Evaluation + Plan note Future Appointments Appointment Date:10/03/2021 09:00:00 AM Scheduled Provider:RICHY HEREDIA APRN, CNP Location:[facility] Appointment Type:PC OV Follow Up [facility] Evaluation + Plan note Future Appointments Appointment Date:04/24/2022 03:00:00 PM Scheduled Provider:RICHY HEREDIA APRN, CNP Location:[facility] Appointment Type:PC OV Follow Up Future Scheduled TestsMicroalbumin Level Urine 04/05/22 [facility] Evaluation + Plan note Future Appointments Appointment Date:10/30/2022 10:40:00 AM Scheduled Provider:RICHY HEREDIA APRN, CNP Location:[facility] Appointment Type:PC OV Follow Up Future Scheduled TestsMicroalbumin Level Urine 04/05/22Microalbumin Level Urine 10/23/22 [facility] Evaluation + Plan note Future Appointments Appointment Date:04/30/2023 09:15:00 AM Scheduled Provider: Location:[facility] Appointment Type:PC Nurse Lab Appointment Date:04/30/2023 09:20:00 AM Scheduled Provider:RICHY HEREDIA APRN, CNP Location:[facility] Appointment Type:PC OV Follow Up Future Scheduled TestsSex Hormone Binding Glb 04/27/23Bioavailable Testotserone SHBG 04/27/23Estradiol Level 12/29/22Luteinizing Hormone 12/29/22Prolactin Level 12/29/22Prostate Specific Antigen 12/29/22Follicle Stimulating Hormone Level 12/29/22Microalbumin Level Urine 04/05/22Testosterone, Free and Total 04/27/23 [facility] Evaluation + Plan note Future Appointments Appointment Date:10/22/2023 09:00:00 AM Scheduled Provider: Location:[facility] Appointment Type:PC Nurse Lab Appointment Date:11/05/2023 09:00:00 AM Scheduled Provider:RICHY HEREDIA APRN, CNP Location:[facility] Appointment Type:PC OV Follow Up Diagnostic Tests PendingTestosterone, Free and Total 04/30/23 Future Scheduled TestsRenin, Plasma 10/30/23Iron Level 10/30/23Prostate Specific Antigen 10/30/23A1C Hemoglobin 10/30/23Complete Blood Count 10/30/23Lipid Profile 10/30/23Albumin/Creatinine Ratio, Random Urine 10/30/23PTH, Intact 10/30/23Vitamin D Level 10/30/23Complete Metabolic Panel 10/30/23TIBC 10/30/23 [facility] Evaluation + Plan note Future Appointments Appointment Date:11/05/2023 09:00:00 AM Scheduled Provider:RICHY HEREDIA APRN, CNP Location:[facility] Appointment Type:PC OV Follow Up Diagnostic Tests PendingRenin Activity, Plasma 10/22/23 [facility] Evaluation + Plan note Future Appointments Appointment Date:05/05/2024 08:40:00 AM Scheduled Provider:RICHY HEREDIA APRN, CNP Location:[facility] Appointment Type:PC OV Diagnostic Tests PendingRenin Activity, Plasma 04/28/24 Future Scheduled TestsThyroid Stimulating Hormone 03/04/24Free T4 04/04/24Albumin/Creatinine Ratio, Random Urine 05/06/24US Thyroid 06/04/24 [facility] Evaluation + Plan note Future Appointments Appointment Date:10/27/2024 08:30:00 AM Scheduled Provider: Location:[facility] Appointment Type:PC Nurse Lab Appointment Date:11/03/2024 08:20:00 AM Scheduled Provider:RICHY HEREDIA APRN, CNP Location:[facility] Appointment Type:PC OV Follow Up Future Scheduled TestsProstate Specific Antigen 11/03/24yroid Stimulating Hormone 03/04/24Thyroid Stimulating Hormone 11/03/24Free T4 04/04/24Free T4 11/03/24Uric Acid 11/03/24A1C Hemoglobin 11/03/24Complete Blood Count 11/03/24Lipid Profile 11/03/24Albumin/Creatinine Ratio, Random Urine 11/03/24Albumin/Creatinine Ratio, Random Urine 05/06/24PTH, Intact 11/03/24Vitamin D Level 11/03/24Complete Metabolic Panel 11/03/24XR Elbow Minimum 3 Views Right 05/05/24 [facility] Evaluation note Diagnosis Viral bronchitis- Primary Acute bronchitis Acute bronchitis, unspecified organism Wheezing Acute cough [facility] Acute cough- Primary URI, acute Acute upper respiratory infections of unspecified site documented [facility] encounter [facility] noteNo assessment information availableW[facility] Work Phone: Evaluation note* Diagnosis Acute cough documented in this encounter [facility] note* Diagnosis Acute cough documented in this encounter [facility] note* Diagnosis Lower resp. tract infection- Primary Other diseases of respiratory system, not elsewhere classified documented in this encounter [facility] course Narrative No data available for this section [facility] Hospital Discharge instructions No data available for this section [facility] Progress note No data available for this section [facility] Health Concerns Infection Onset Date Last Indicated [...] No September 11, 2020 2:10pm Power of Collar Trimmer No September 11 2:10pm Summary Purpose Additional Source Comments Source Comments (unrecognize d section and content) In the event this informatio n is protected by the Federal Confidentiality of Alcohol and Drug Abuse Patient Records regulations: The Federal rules restrict any use of the information to criminally investigate or prosecute any alcohol or drug abuse patient.[facility] the event this information is protected by the Federal Confidentiality of Alcohol and Drug Abuse Patient Records regulations: The Federal rules restrict any use of the information to criminally investigate or prosecute any alcohol or drug abuse patient.[facility] Hospital[facility] the event this information is protected by the Federal Confidentiality of Alcohol and Drug Abuse Patient Records regulations: The Federal rules restrict any use of the information to criminally investigate or prosecute any alcohol or drug abuse patient.[facility] the event this information is protected by the Federal Confidentiality of Alcohol and Drug Abuse Patient Records regulations: The Federal rules restrict any use of the information to criminally investigate or prosecute any alcohol or drug abuse patient.[facility] HospitalIn the event this information is protected by the Federal Confidentiality of Alcohol and Drug Abuse Patient Records regulations: The Federal rules restrict any use of the information to criminally investigate or prosecute any alcohol or drug abuse patient.[facility] Reason for Visit (unrecogniz ed section and content) Reason Comments Cough cough, hard to breat h and wheezing x 4 days Reason Comments Cough Cough, congestion, c hills, BROWN x 3 days Reason Comments Cough Chest congestion, ti ghtness in chest, increasing x 2 daysStates SOB with deep breathing Care Teams (unrecognized sec tion and content) Research And Evaluation Manager Relationship Specialty Start Date End Date Richy Heredia CNP PCP - General Family Practice 09/02/17 Research And Evaluation Manager Relationship Specialty Start Date End Date Richy Heredia CNP PCP - General Family Medicine 09/02/17 Team Status: Active Member Role Status Dates Richy Heredia CLEARANCE COORDINATOR, CLEARANCE COORDINATOR-C Family Provider Activ e Richy Heredia CLEARANCE COORDINATOR, CLEARANCE COORDINATOR-C Primary Care Provider Active Team Status: Inactive Member Role Status Dates Richy Heredia CLEARANCE COORDINATOR, CLEARANCE COORDINATOR-C Primary Care Provider, Attending Provider Active Team Status: Inactive Member Role Status Dates Richy Heredia CLEARANCE COORDINATOR, CLEARANCE COORDINATOR-C Primary Care Provider, Attending Provider, Referring Provider Active Research And Evaluation Manager Relationship Specialty Start Date End Date Richy Heredia CNP PCP - General Family Medicine 09/02/17 Research And Evaluation Manager Relationship Specialty Start Date End Date Richy Heredia CNP PCP - General Family Medicine 09/02/17 Research And Evaluation Manager Relationship Specialty Start Date End Date Richy Heredia CNP PCP - General Family Medicine 09/02/17 Care Team (unrecognized sect ion and content) Care Team Personnel Name: RICHY HEREDIA SALES TRAINING REPRESENTATIVE - [employer] Position: P4 Advanced Practice Nurse Med Service: Employed Provider Member Role: Primary Care Physician Address: Address: [address] [place] [id number]- [place] Care Team Related Persons Name: ERICH BOB Address: Home [address] [place] [phone] Address: Temporary [address] [place] [phone] Care Team Personnel Name: RICHY HEREDIA SALES TRAINING REPRESENTATIVE - [employer] Position: P4 Advanced Practice Nurse Med Service: Employed Provider Member Role: Primary Care Physician Address: Address: [address] [place] [phone] [place] Care Team Related Persons Name: ERICH BOB Address: [address] [place], [place] [id number] Address: Temporary [address] [place] [phone] Goals (unrecognized section and content) Goals may be documented in a n alternate section (unrecognized sect ion and content) No Status Records FoundNo Status Records FoundNo Status Records FoundNo Status Records Found INFORMATION SOURCE (unrecogn ized section and content) DATE CREATED AUTHOR 10/30/2023 [facility] DATE CREATED AUTHOR AUTHOR'S ORGANIZ ATION 11/01/2024 [facility] DATE CREATED AUTHOR AUTHOR'S ORGANIZ ATION 11/17/2024 [facility] DATE CREATED AUTHOR AUTHOR'S ORGANIZ ATION 04/29/2025 [facility] FOR RECORDS PERTAINING TO PATIENTS WHO [...] BE BASED ON THE PRIMARY CLINICAL RECORDS. [facility] [employer] [facility]. provides no warranty or guarantee of the accuracy or completeness of information in this document.
[2025-05-01 10:22] LABS: Hematocrit 42.4 % (40-54); Hemoglobin 14.9 g/dL (13.0-16.5); Mean Corp Hgb Conc 35.1 g/dL (32-36); Mean Corpuscular Volume 87.6 fL (80-94); Mean Platelet Vol. 9.1 fl (6.2-12.0); Platelet Count 193 K/mm3 (150-450); RBC Distribution Width CV 13.0 % (11.6-14.6); RBC Distribution Width SD 41.2 fl (35.1-43.9); Red Blood Count 4.84 M/mm3 (4.6-6.2); White Blood Count 4.8 K/mm3 (4.4-11.0)
[2025-05-01 10:36] LABS: Creatinine, Urine (random) 153.00 mg/dL (39.00-259.00); Microalbumin,Random Urine 255.0 mg/L (<20 mg/L)
[2025-05-01 10:59] LABS: PTHIN 189 pg/mL (11-61)
[2025-05-01 11:22] LABS: AST(SGOT) 24 U/L (<=37); Alanine Aminotransfer ALT/SGPT 16 U/L (<=46); Albumin, Serum 4.1 g/dL (3.5-5.0); Alkaline Phosphatase 79 U/L (40-129); Anion Gap 12 (5-15); BUN 22 mg/dL (4-19); BUN/Creat Ratio 16.3 RATIO (10-20); Calcium,Total 9.0 mg/dL (7.6-11.0); Carbon Dioxide 22.7 mmol/L (21.0-32.0); Chloride 106 mmol/L (98-108); Cholesterol 156 mg/dL (<=200); Globulin 2.7 g/dL (2.2-4.2); Glucose 104 mg/dL (70-99); Low Density Lipoprotein Calc. 74 mg/dL; Potassium 4.3 mmol/L (3.3-5.1); Triglycerides 271 mg/dL; Uric Acid 8.2 mg/dL (3.5-7.2); Very Low Density Lipoprotein 54 mg/dL (5-40); Vitamin D,25 Hydroxy 33.3 ng/mL (30-100); cholesterol:hdl ratio screen 4.12
[2025-05-04 11:09] LABS: Testosterone, % Free 2.25 % (1.50-4.20); Testosterone, Free 9.05 ng/dL (5.00-21.00)
== END | disposition home or self-care (01) ==
LOC: LAB 09:27
PROVIDERS: PCP Nurse Practitioner Family; Referring Provider Nurse Practitioner Family; Visit Provider Nurse Practitioner Family
DX: E11.22 Type 2 diabetes mellitus with diabetic chronic kidney disease (principal); N18.30 Chronic kidney disease, stage 3 unspecified; I12.9 Hypertensive chronic kidney disease with stage 1 through stage 4 chronic kidney disease, or unspecified chronic kidney disease; D63.1 Anemia in chronic kidney disease; E78.5 Hyperlipidemia, unspecified; N25.81 Secondary hyperparathyroidism of renal origin; E55.9 Vitamin D deficiency, unspecified; M10.9 Gout, unspecified; E29.1 Testicular hypofunction
CPT/HCPCS: 36415; 80053; 80061; 82043; 82306; 82570; 83036; 83970; 84270; 84402; 84403; 84443; 84550; 85027